=== PATIENT | male | born 1945 | race Caucasian/White ===

== ENCOUNTER 2017-02-11 14:13 | Inpatient (IN) | payer MEDICARE, MEDICAID ==
--- NOTE | 2017-02-11 14:35 | ED Physician Chart ---
Chief Complaint/HPI - Patient Information Date Seen:: 02/11/17 Time Seen:: 14:24 Chief Complaint:: PSYCHOSIS History of Present Illness:: THIS IS A 71 YO MALE SENT FROM A INTERMEDIATE FOR A PSYCH EVALUATION BECAUSE OF HIS RECENT BEHAVIOR. HE IS ALSO ANDREZ UNCOOPERATIVE AND NOT COMMUNICATING WITHE THE STAFF. HE ALSO HAS DIABETES MELLITUS,COPD, SEIZURES AND PSYCHOSIS. Allergies:: Allergies Allergy/AdvReac Type Severity Reaction Status Date / Time No Known Allergies Allergy Verified 02/11/17 14:21 Vitals:: Vital Signs - 8 hr 02/11/17 14:22 Temp 98.2 F HR 66 RR 17 BP 95/64 O2 Sat % 98 Historian:: EMS, Medical Records Review:: Nurse's Note Reviewed, Transfer documents Reviewed Review of Systems - Review of Systems General/Constitutional: No fever, No chills, No weight loss, No weakness, No diaphoresis, No edema, No loss of appetite Skin: No skin lesions, No rash, No bruising Head: No headache, No light-headedness Eyes: No loss of vision, No pain, No diplopia ENT: No earache, No nasal drainage, No sore throat, No tinnitus Neck: No neck pain, No swelling, No thyromegaly, No stiffness, No mass noted Cardio Vascular: No chest pain, No palpitations, No PND, No orthopnea, No edema Pulmonary: No SOB, No cough, No sputum, No wheezing GI: No nausea, No vomiting, No diarrhea, No pain, No melena, No hematochezia, No constipation, No hematemesis G/U: No dysuria, No frequency, No hematuria Musculoskeletal: No bone or joint pain, No back pain, No muscle pain Endocrine: No polyuria, No polydipsia Psychiatric: Prior psych history, No prior psych history, No depression, No anxiety, No suicidal ideation Hematopoietic: No bruising, No lymphadenopathy Allergic/Immuno: No urticaria, No angioedema Neurological: No syncope, No focal symptoms, No weakness, No paresthesia, No headache, Seizure, No dizziness, No confusion, No vertigo Past Medical History - Past Medical History Obtainable: Yes Past Medical History: HTN, DM, Asthma/COPD, Seizures, Dementia Family History: None Social History: Non Smoker, No Alcohol, No Drug Use, Care Facility Surgical History: None Psychiatricy History: Dementia Physical Exam - Physical Examination General/Constitutional: Awake, Well-developed, well-nourished, Alert, No distress, GCS 15, Non-toxic appearing, Ambulatory Other Gen/Cons comments:: NOT COOPERATING AND NOT COMMUNICATING. Head: Atraumatic Eyes: Lids, conjuctiva normal, PERRL, EOMI Skin: Nl inspection, No rash, No skin lesions, No ecchymosis, Well hydrated, No lymphadenopathy ENMT: External ears, nose nl, Nasal exam nl, Lips, teeth, gums nl Neck: Nontender, Full ROM w/o pain, No JVD, No nuchal rigidity, No bruit, No mass, No stridor Respiratory: Nl effort/Exclusion, Clear to Auscultation, No Wheeze/Rhonchi/Rales Cardio Vascular: RRR, No murmur, gallop, rubs, NL S1 S2 GI: No tenderness/rebounding/guarding, No organomegaly, No hernia, Normal BS's, Nondistended, No mass/bruits, No McBurney tenderness : No CVA tenderness Extremities: No tenderness or effusion, Full ROM, normal strength in all extremities, No edema, Normal digits & nails Neuro/Psych: Alert/oriented, DTR's symmetric, Normal sensory exam, Normal motor strength, Judgement/insight normal, Mood normal, Normal gait, No focal deficits Misc: normal gait, Normal back, No paraspinal tenderness Labs/Radiology/EKG Results - Lab Results Results: Abnormal Lab Results 02/11/17 02/11/17 02/11/17 14:31 14:31 14:31 WBC 8.4 RBC 4.06 Hgb 12.0 L Hct 36.1 L MCV 88.7 MCH 29.5 MCHC Differential 33.3 RDW 14.1 Plt Count 183 MPV 8.2 Neutrophils % 81.1 H Lymphocytes % 12.8 L Monocytes % 3.8 Eosinophils % 1.3 Basophils % 1.0 Sodium 137 Potassium 3.8 Chloride 105 Carbon Dioxide 30.5 Anion Gap 5.3 L BUN 21 Creatinine 0.6 L Est GFR ( Amer) > 60.0 Est GFR (Non-Af Amer) > 60.0 BUN/Creatinine Ratio 35.0 Glucose 122 H POC Glucose Calcium 9.3 Total Bilirubin 0.2 L AST 15 ALT 15 Alkaline Phosphatase 104 Troponin I Total Protein 6.9 Albumin 3.7 L Globulin 3.2 Albumin/Globulin Ratio 1.2 Triglycerides 119 Cholesterol 108 LDL Cholesterol Direct 47 L HDL Cholesterol 45 TSH 0.70 Valproic Acid 02/11/17 02/11/17 02/11/17 14:31 14:31 14:44 WBC RBC Hgb Hct MCV MCH MCHC Differential RDW Plt Count MPV Neutrophils % Lymphocytes % Monocytes % Eosinophils % Basophils % Sodium Potassium Chloride Carbon Dioxide Anion Gap BUN Creatinine Est GFR ( Amer) Est GFR (Non-Af Amer) BUN/Creatinine Ratio Glucose POC Glucose 127 H Calcium Total Bilirubin AST ALT Alkaline Phosphatase Troponin I 0.01 Total Protein Albumin Globulin Albumin/Globulin Ratio Triglycerides Cholesterol LDL Cholesterol Direct HDL Cholesterol TSH Valproic Acid < 10.0 L - EKG Interpretations EKG Time:: 14:22 Rate & Rhythm: RATE= 69, SINUS [place]: LEFT Assessment - Assessment General Assessment: psychosis ED Septic Shock - . Is Septic Shock (SBP<90, OR Lactate>4 mmol\L) present?: No - <6hrs of presentation: Vital Signs: Vital Signs - 8 hr 02/11/17 14:22 Temp 98.2 F HR 66 RR 17 BP 95/64 O2 Sat % 98 Reassessment (Disposition) - Reassessment Reassessment Condition:: Improved - Diagnosis Diagnosis:: PSYCHOSIS SEIZURE DISORDER - Patient Disposition Discharge/Transfer:: Acute Care w/in this hosp Admitting Medical Physician:: Luis Robertson Admitting Psych Physician:: Marc Martin Condition at Disposition:: Improved ED Discharge Plan - Patient Disposition Admit/Discharge/Transfer: Acute Care w/in this hosp Condition at Disposition: Improved Instructions: Psychosis
[2017-02-11 14:39] LABS: % EOSINOPHILS 1.3 % (0.0-5.0); % LYMPHOCYTES 12.8 % (20.0-50.0); % MONOCYTES 3.8 % (2.0-10.0); % NEUTROPHILS 81.1 % (40.0-80.0); HEMATOCRIT 36.1 % (39.0-49.0); MEAN CELL VOLUME 88.7 fl (80-99); MEAN CORPUSCULAR HEMOGLOBIN 29.5 pg (27.0-31.0); MEAN CORPUSCULAR HGB CONC 33.3 pg (28.0-36.0); MEAN PLATELET VOLUME 8.2 fl; NEUTROPHILE ABSOLUTE 6.8 Th/cmm (1.8-8.0); PLATELET COUNT 183 Th/cmm (150-400); RED BLOOD COUNT 4.06 Mil/cmm (3.80-5.80); RED CELL DISTRIBUTION WIDTH 14.1 % (11.5-20.0); WHITE BLOOD COUNT 8.4 Th/cmm (4.8-10.8)
[2017-02-11 14:54] LABS: ALB/GLOB RATIO 1.2 (1.0-1.8); ALKALINE PHOSPHATASE 104 U/L (34-104); ANION GAP 5.3 (7.0-16.0); BILIRUBIN,TOTAL 0.2 mg/dL (0.3-1.0); BUN - UREA NITROGEN 21 mg/dL (7-25); CALCIUM SERUM 9.3 mg/dL (8.6-10.3); CARBON DIOXIDE 30.5 mEq/L (21.0-31.0); CHLORIDE 105 mEq/L (98-107); CHOLESTEROL 108 mg/dL (<200); CREATININE - SERUM 0.6 mg/dL (0.7-1.3); GLUCOSE 122 mg/dL (70-105); POTASSIUM SERUM 3.8 mEq/L (3.5-5.1); SGOT 15 U/L (13-39); SGPT/ALT 15 U/L (7-52); SODIUM SERUM 137 mEq/L (136-145); TRIGLYCERIDES 119 mg/dL (<150)
[2017-02-11 16:26] LABS: URINE BILIRUBIN NEGATIVE (NEGATIVE); URINE BLOOD SMALL (NEGATIVE); URINE GLUCOSE (UA) NEGATIVE (NEGATIVE); URINE KETONE NEGATIVE (NEGATIVE); URINE PROTEIN 30 mg/dL (NEGATIVE); URINE UROBILINOGEN 0.2 E.U./dL (0.2 - 1.0)
[2017-02-11 16:54] LABS: URINE COLOR YELLOW
[2017-02-11 16:57] LABS: URINE BACTERIA MANY /hpf (NONE SEEN); URINE EPITHELIAL CELLS NONE SEEN /lpf (FEW); URINE WBC 25-50 /hpf (0-5)
[2017-02-11 17:47] LABS: AMPHETAMINE URINE NEGATIVE (NEGATIVE); BARBITURATES URINE NEGATIVE (NEGATIVE); METHADONE URINE NEGATIVE (NEGATIVE)
[2017-02-11 18:03] VITALS: BP 132/76
[2017-02-11] MEDS ORDERED: Magnesium Hydroxide (MOM) 30 mL UDC PO PRN (18:08)
[2017-02-11] MEDS ORDERED: Maalox 30 mL Cup PO PRN (18:08)
[2017-02-12] MEDS: Pantoprazole 40 mg EC Tab PO SCH (06:53)
[2017-02-12] MEDS: INSULIN ASPART SLIDING SCALE 100 UNITS/ML UNIT SUBQ SCH ×3 (06:53→21:09)
[2017-02-12] MEDS ORDERED: ARMODAFINIL 200 MG PO SCH (09:00)
[2017-02-12] MEDS: POLYETHYLENE GLYCOL 3350 17 GM PACK PO SCH (11:08)
[2017-02-12] MEDS: Nicotine 14 mg/24 hr Tdm TD SCH (11:12)
--- NOTE | 2017-02-12 14:30 | History & Physical ---
ADMIT DATE: 02/11/2017 CHIEF COMPLAINT: Increasing agitation. HISTORY OF PRESENT ILLNESS: This is a 71-year-old male with history of COPD, diabetes, hypertension, GERD, history of stroke, schizoaffective disorder, who was admitted from nursing facility secondary to above complaints. The patient is confused, unable to provide a meaningful history and review of systems: The patient was cleared through the ER. PAST MEDICAL HISTORY: As mentioned in history present illness. PAST SURGICAL HISTORY: Unable to obtain from the patient. ALLERGIES: No known drug allergies. MEDICATIONS: Tylenol, Depakote, Colace, insulin sliding scale, Ativan, milk of magnesia, Glucophage, Maalox with Ambien. FAMILY HISTORY: Noncontributory. SOCIAL HISTORY: The patient is a long term patient requiring 24-hour total care. REVIEW OF SYSTEMS: This is limited secondary to the patient's current mental state. We will try to obtain more detailed review of systems at a later date by talking to family members. ___ [phone]. We will also try to get information from nursing staff at [facility] [phone]. PHYSICAL EXAMINATION: VITAL SIGNS: Blood pressure 116/69, respirations 19, pulse was 76, temperature is 97.7. GENERAL: Elderly male, who appears stated age. NECK: Supple. No mass. HEENT: Bilateral temporal wasting. LUNGS: Equal breath sounds, few rhonchi. HEART: Regular rate and rhythm with systolic ejection murmur. ABDOMEN: Soft, nontender. EXTREMITIES: Positive excoriation, upper extremity. LABORATORY DATA: WBC 8.4, hemoglobin 12, platelets 183. Sodium 137, potassium 3.8, BUN 21, creatinine 0.6. Blood sugar 127. UA 50 wbc's, positive for benzo. ASSESSMENT AND PLAN: COPD, diabetes, CAD, hypertension, gait instability, GERD, stroke, CVA, schizoaffective disorder, anemia, low albumin. We will continue the patient on IV antibiotic and continue on oxygen and bronchodilator treatment. Continue ADA diet and insulin sliding scale. Continue with current care. We will place the patient on fall precaution. We will continue to monitor the patient closely. JOB# [id number]
[2017-02-13] MEDS: Pantoprazole 40 mg EC Tab PO SCH (06:46)
[2017-02-13] MEDS: INSULIN ASPART SLIDING SCALE 100 UNITS/ML UNIT SUBQ SCH ×4 (07:00→20:42)
[2017-02-13] MEDS: Nicotine 14 mg/24 hr Tdm TD SCH (09:26)
[2017-02-13] MEDS: POLYETHYLENE GLYCOL 3350 17 GM PACK PO SCH (09:26)
--- NOTE | 2017-02-13 13:27 | Internal Medicine Prog Note ---
Internal Medicine Subjective - Subjective Patient seen and examined:: with staff, chart reviewed Patient is:: awake, non-verbal, non-interactive Per staff patient has:: no adverse event, poor appetite, tolerating meds Internal Medicine Objective - Results Result Diagrams: 02/11/17 14:31 02/11/17 14:31 Recent Labs: Laboratory Last Values WBC 8.4 Th/cmm (4.8-10.8) 02/11/17 14:31 RBC 4.06 Mil/cmm (3.80-5.80) 02/11/17 14:31 Hgb 12.0 gm/dL (12.6-17.4) L 02/11/17 14:31 Hct 36.1 % (39.0-49.0) L 02/11/17 14:31 MCV 88.7 fl (80-99) 02/11/17 14:31 MCH 29.5 pg (27.0-31.0) 02/11/17 14:31 MCHC Differential 33.3 pg (28.0-36.0) 02/11/17 14:31 RDW 14.1 % (11.5-20.0) 02/11/17 14:31 Plt Count 183 Th/cmm (150-400) 02/11/17 14:31 MPV 8.2 fl 02/11/17 14:31 Neutrophils % 81.1 % (40.0-80.0) H 02/11/17 14:31 Lymphocytes % 12.8 % (20.0-50.0) L 02/11/17 14:31 Monocytes % 3.8 % (2.0-10.0) 02/11/17 14:31 Eosinophils % 1.3 % (0.0-5.0) 02/11/17 14:31 Basophils % 1.0 % (0.0-2.0) 02/11/17 14:31 Sodium 137 mEq/L (136-145) 02/11/17 14:31 Potassium 3.8 mEq/L (3.5-5.1) 02/11/17 14:31 Chloride 105 mEq/L (98-107) 02/11/17 14:31 Carbon Dioxide 30.5 mEq/L (21.0-31.0) 02/11/17 14:31 Anion Gap 5.3 (7.0-16.0) L 02/11/17 14:31 BUN 21 mg/dL (7-25) 02/11/17 14:31 Creatinine 0.6 mg/dL (0.7-1.3) L 02/11/17 14:31 Est GFR ( Amer) > 60.0 ml/min (>90) 02/11/17 14:31 Est GFR (Non-Af Amer) > 60.0 ml/min 02/11/17 14:31 BUN/Creatinine Ratio 35.0 02/11/17 14:31 Glucose 122 mg/dL (70-105) H 02/11/17 14:31 POC Glucose 100 MG/DL (70 - 105) 02/13/17 06:09 Calcium 9.3 mg/dL (8.6-10.3) 02/11/17 14:31 Total Bilirubin 0.2 mg/dL (0.3-1.0) L 02/11/17 14:31 AST 15 U/L (13-39) 02/11/17 14:31 ALT 15 U/L (7-52) 02/11/17 14:31 Alkaline Phosphatase 104 U/L (34-104) 02/11/17 14:31 Troponin I 0.01 ng/mL (0.01-0.05) 02/11/17 14:31 Total Protein 6.9 gm/dL (6.0-8.3) 02/11/17 14:31 Albumin 3.7 gm/dL (4.2-5.5) L 02/11/17 14:31 Globulin 3.2 gm/dL 02/11/17 14:31 Albumin/Globulin Ratio 1.2 (1.0-1.8) 02/11/17 14:31 Triglycerides 119 mg/dL (<150) 02/11/17 14:31 Cholesterol 108 mg/dL (<200) 02/11/17 14:31 LDL Cholesterol Direct 47 mg/dL (75-193) L 02/11/17 14:31 HDL Cholesterol 45 mg/dL (23-92) 02/11/17 14:31 TSH 0.70 uIU/ml (0.34-5.60) 02/11/17 14:31 Urine Source CLEAN C 02/11/17 16:10 Urine Color YELLOW 02/11/17 16:10 Urine Clarity CLOUDY (CLEAR) 02/11/17 16:10 Urine pH 8.0 (4.6 - 8.0) 02/11/17 16:10 Ur Specific [place] 1.020 (1.005-1.030) 02/11/17 16:10 Urine Protein 30 mg/dL (NEGATIVE) H 02/11/17 16:10 Urine Glucose (UA) NEGATIVE mg/dL (NEGATIVE) 02/11/17 16:10 Urine Ketones NEGATIVE mg/dL (NEGATIVE) 02/11/17 16:10 Urine Blood SMALL (NEGATIVE) H 02/11/17 16:10 Urine Nitrate POSITIVE (NEGATIVE) H 02/11/17 16:10 Urine Bilirubin NEGATIVE (NEGATIVE) 02/11/17 16:10 Urine Urobilinogen 0.2 E.U./dL (0.2 - 1.0) 02/11/17 16:10 Ur Leukocyte Esterase LARGE (NEGATIVE) H 02/11/17 16:10 Urine RBC 2-5 /hpf (0-5) H 02/11/17 16:10 Urine WBC 25-50 /hpf (0-5) H 02/11/17 16:10 Ur Epithelial Cells NONE SEEN /lpf (FEW) 02/11/17 16:10 Urine Bacteria MANY /hpf (NONE SEEN) 02/11/17 16:10 Urine Opiates Screen NEGATIVE (NEGATIVE) 02/11/17 16:10 Urine Methadone Screen NEGATIVE (NEGATIVE) 02/11/17 16:10 Ur Barbiturates Screen NEGATIVE (NEGATIVE) 02/11/17 16:10 Valproic Acid < 10.0 ug/mL (50.0-100.0) L 02/11/17 14:31 Ur Tricyclics Screen NEGATIVE (NEGATIVE) 02/11/17 16:10 Ur Phencyclidine Scrn NEGATIVE (NEGATIVE) 02/11/17 16:10 Amphetamines Screen NEGATIVE (NEGATIVE) 02/11/17 16:10 U Methamphetamines Scrn NEGATIVE (NEGATIVE) 02/11/17 16:10 U Benzodiazepines Scrn POSITIVE (NEGATIVE) H 02/11/17 16:10 U Cocaine Metab Screen NEGATIVE (NEGATIVE) 02/11/17 16:10 U Cannabinoids Screen NEGATIVE (NEGATIVE) 02/11/17 16:10 RPR NONREACTIVE (NONREACTIVE) 02/11/17 14:31 - Physical Exam Vitals and I&O: Vital Signs Temp 98 F 02/13/17 06:56 Pulse 63 02/13/17 06:56 Resp 19 02/13/17 06:56 BP 99/62 02/13/17 06:56 Pulse Ox 91 02/13/17 06:56 Intake & Output 02/12/17 02/13/17 02/13/17 18:59 06:59 18:59 Intake Total 800 120 Balance 800 120 Weight (lbs) 65.771 kg Intake: Oral 800 120 Other: # Voids 4 3 # Bowel Movements 0 0 Stool Characteristics Formed Formed Active Medications: Current Medications Acetaminophen (Tylenol) 650 mg PO Q6HR PRN PRN Reason: PAIN OR TEMP >101 Stop: 04/12/17 18:04 Al Hydrox/Mg Hydrox/Simethicone (Maalox) 30 ml PO Q4HR PRN PRN Reason: GI DISTRESS Stop: 04/12/17 18:07 Ciprofloxacin (Cipro) 500 mg PO BID [facility] Stop: 02/17/17 16:59 Last Admin: 02/13/17 09:25 Dose: Not Given Cyanocobalamin (Vitamin B12) 500 mcg PO DAILY [facility] Stop: 04/13/17 08:59 Last Admin: 02/13/17 09:25 Dose: Not Given Divalproex Sodium (Depakote Dr) 125 mg PO Q12H ERIC PRN Reason: Protocol Stop: 04/14/17 20:59 Docusate Sodium (Colace) 100 mg PO BID [facility] Stop: 04/13/17 08:59 Last Admin: 02/13/17 09:25 Dose: Not Given Folic Acid (Folate) 1 mg PO DAILY [facility] Stop: 04/13/17 08:59 Last Admin: 02/13/17 09:25 Dose: Not Given Insulin Aspart (Novolog Insulin Sliding Scale) 0 units SUBQ ACHS ERIC PRN Reason: Protocol Stop: 04/13/17 07:29 Last Admin: 02/13/17 11:28 Dose: Not Given Lorazepam (Ativan) 0.5 mg PO Q4HR PRN; Protocol PRN Reason: Anxiety Stop: 03/13/17 18:07 Magnesium Hydroxide (Milk Of Magnesia) 30 ml PO HS PRN PRN Reason: Constipation Metformin HCl (Glucophage) 500 mg PO BID [facility] Stop: 04/13/17 08:59 Last Admin: 02/13/17 09:26 Dose: Not Given Miscellaneous (Armodafinil [Nuvigil]) 200 mg PO DAILY [facility] Stop: 04/13/17 08:59 Nicotine (Nicotine Transdermal System) 14 mg TD DAILY [facility] Stop: 04/13/17 08:59 Last Admin: 02/13/17 09:26 Dose: Not Given Pantoprazole Sodium (Protonix) 40 mg PO QDAC [facility] Stop: 04/13/17 07:29 Last Admin: 02/13/17 06:46 Dose: Not Given Polyethylene Glycol (Miralax) 17 gm PO DAILY [facility] Stop: 04/13/17 08:59 Last Admin: 02/13/17 09:26 Dose: Not Given Quetiapine Fumarate (Seroquel) 12.5 mg PO HS ERIC PRN Reason: Protocol Stop: 04/14/17 20:59 Thiamine HCl (Vitamin B1) 100 mg PO DAILY [facility] Stop: 04/13/17 08:59 Last Admin: 02/13/17 09:26 Dose: Not Given Zolpidem Tartrate (Ambien) 5 mg PO HS PRN PRN Reason: Insomnia Stop: 04/12/17 18:07 General: demented HEENT: NC/AT, PERRLA Neck: Supple, No JVD Lungs: congested Cardiovascular: RRR, Normal S1, Normal S2, with murmur Abdomen: soft, thin, globular Extremities: excoriation, contracture, deformity Neurological: no change, lethargic Internal Medicine Assmt/Plan - Assessment Assessment: COPD, diabetes, CAD, hypertension, gait instability, GERD, stroke, CVA, schizoaffective disorder, anemia, low albumin.uti - Plan Plan: We will continue the patient on po antibiotic and continue on oxygen and bronchodilator treatment. Continue ADA diet and insulin sliding scale. Continue with current care. We will place the patient on fall precaution. We will continue to monitor the patient closely.
--- NOTE | 2017-02-13 19:37 | Psychosocial Evaluation ---
DATE OF SERVICE: 02/12/2017 IDENTIFYING DATA: The patient is a 71-year-old patient of [facility]. Information obtained by directly interviewing the patient as well as reviewing the admission papers and they are reliable. JUSTIFICATION FOR HOSPITALIZATION: The patient is admitted here on a voluntary basis in view of his psychosis. CHIEF COMPLAINT: "I do not know." HISTORY OF PRESENT ILLNESS: This is the first psychiatric hospitalization to [place] for this patient who has multiple medical problems such as diabetes mellitus, essential hypertension, muscle weakness, gastroesophageal reflux disease and history of CVA. The patient is reported to have been getting out of control and has been getting easily irritable and angry and patient has been not able to contract for safety. The patient could not be contained at a lower level of care and hence the patient has been reported over here for stabilization. Chart is reviewed. The patient is interviewed. During the interview, the patient is noted to be responding to internal stimuli and is not making much sense. The patient is screaming and yelling at one time. The patient has been on Seroquel 50 mg twice a day, Depakote 125 mg twice a day. Even with that medication, the patient has not been able to contract for safety. PAST PSYCHIATRIC HISTORY: Details are not known. MEDICAL HISTORY: Physical examination requested and done by Dr. Robertson. SUBSTANCE ABUSE HISTORY: None. PHYSICAL OR SEXUAL ABUSE HISTORY: None. LEGAL PROBLEMS: None at this time. STRENGTH AND ASSETS: The patient seems to be motivated. MENTAL STATUS EXAMINATION: The patient is a 71-year-old, looking older than his stated age, superficially cooperative. The patient is very paranoid and is responding to internal stimuli. The patient is getting easily irritable and cursing the other patient's out. The patient has no insight into his illness. Impulse control seems to be extremely poor. The patient is alert and awake. Attention span and concentration are noted to be poor at this time. Short and shelter are noted to be impaired. DIAGNOSTIC IMPRESSION: AXIS I: 1A. Psychosis, not otherwise specified. 1B. History of bipolar disorder mixed with psychotic symptoms. AXIS II: None. AXIS III: As per Dr. Robertson. IMMEDIATE TREATMENT PLAN: The patient is going to be observed on inpatient unit, provided with supportive psychotherapy. The patient is going to be continued on the Seroquel and Depakote. ESTIMATED LENGTH OF STAY: 3-5 days. DISCHARGE CRITERIA: When he is no longer a threat to self or others and be able to cope up with the stress. The patient is going to be closely monitored for his aggressive behavior. [facility]# [id number]
--- NOTE | 2017-02-14 00:45 | Progress Notes ---
DATE: 02/13/2017 SUBJECTIVE: Staff was spoken to. The patient is interviewed. Mood is noted to be irritable. Affect is constricted. The patient is still responding to internal stimuli. Coping skills are noted to be very poor. Sleep and appetite are also noted to be very poor. The patient has been actively responding to internal stimuli and the patient is currently on valproic acid 125 mg twice a day for the impulsivity and he is also receiving the zolpidem and in view of his psychosis, I have decided to start the patient on a low dose of the Seroquel and closely monitor the patient for any aggressive behavior. The patient is not ready to be discharged to a lower level of care in view of his psychosis. JOB# [id number]
[2017-02-14] MEDS: INSULIN ASPART SLIDING SCALE 100 UNITS/ML UNIT SUBQ SCH ×4 (06:32→20:08)
[2017-02-14] MEDS: Pantoprazole 40 mg EC Tab PO SCH (06:33)
[2017-02-14] MEDS: POLYETHYLENE GLYCOL 3350 17 GM PACK PO SCH (10:00)
[2017-02-14] MEDS: Nicotine 14 mg/24 hr Tdm TD SCH (10:00)
--- NOTE | 2017-02-14 12:35 | Internal Medicine Prog Note ---
Internal Medicine Subjective - Subjective Patient seen and examined:: with staff, chart reviewed Patient is:: awake, non-verbal, non-interactive Per staff patient has:: no adverse event, poor appetite, tolerating meds Internal Medicine Objective - Results Result Diagrams: 02/11/17 14:31 02/11/17 14:31 Recent Labs: Laboratory Last Values WBC 8.4 Th/cmm (4.8-10.8) 02/11/17 14:31 RBC 4.06 Mil/cmm (3.80-5.80) 02/11/17 14:31 Hgb 12.0 gm/dL (12.6-17.4) L 02/11/17 14:31 Hct 36.1 % (39.0-49.0) L 02/11/17 14:31 MCV 88.7 fl (80-99) 02/11/17 14:31 MCH 29.5 pg (27.0-31.0) 02/11/17 14:31 MCHC Differential 33.3 pg (28.0-36.0) 02/11/17 14:31 RDW 14.1 % (11.5-20.0) 02/11/17 14:31 Plt Count 183 Th/cmm (150-400) 02/11/17 14:31 MPV 8.2 fl 02/11/17 14:31 Neutrophils % 81.1 % (40.0-80.0) H 02/11/17 14:31 Lymphocytes % 12.8 % (20.0-50.0) L 02/11/17 14:31 Monocytes % 3.8 % (2.0-10.0) 02/11/17 14:31 Eosinophils % 1.3 % (0.0-5.0) 02/11/17 14:31 Basophils % 1.0 % (0.0-2.0) 02/11/17 14:31 Sodium 137 mEq/L (136-145) 02/11/17 14:31 Potassium 3.8 mEq/L (3.5-5.1) 02/11/17 14:31 Chloride 105 mEq/L (98-107) 02/11/17 14:31 Carbon Dioxide 30.5 mEq/L (21.0-31.0) 02/11/17 14:31 Anion Gap 5.3 (7.0-16.0) L 02/11/17 14:31 BUN 21 mg/dL (7-25) 02/11/17 14:31 Creatinine 0.6 mg/dL (0.7-1.3) L 02/11/17 14:31 Est GFR ( Amer) > 60.0 ml/min (>90) 02/11/17 14:31 Est GFR (Non-Af Amer) > 60.0 ml/min 02/11/17 14:31 BUN/Creatinine Ratio 35.0 02/11/17 14:31 Glucose 122 mg/dL (70-105) H 02/11/17 14:31 POC Glucose 100 MG/DL (70 - 105) 02/14/17 06:09 Calcium 9.3 mg/dL (8.6-10.3) 02/11/17 14:31 Total Bilirubin 0.2 mg/dL (0.3-1.0) L 02/11/17 14:31 AST 15 U/L (13-39) 02/11/17 14:31 ALT 15 U/L (7-52) 02/11/17 14:31 Alkaline Phosphatase 104 U/L (34-104) 02/11/17 14:31 Troponin I 0.01 ng/mL (0.01-0.05) 02/11/17 14:31 Total Protein 6.9 gm/dL (6.0-8.3) 02/11/17 14:31 Albumin 3.7 gm/dL (4.2-5.5) L 02/11/17 14:31 Globulin 3.2 gm/dL 02/11/17 14:31 Albumin/Globulin Ratio 1.2 (1.0-1.8) 02/11/17 14:31 Triglycerides 119 mg/dL (<150) 02/11/17 14:31 Cholesterol 108 mg/dL (<200) 02/11/17 14:31 LDL Cholesterol Direct 47 mg/dL (75-193) L 02/11/17 14:31 HDL Cholesterol 45 mg/dL (23-92) 02/11/17 14:31 TSH 0.70 uIU/ml (0.34-5.60) 02/11/17 14:31 Urine Source CLEAN C 02/11/17 16:10 Urine Color YELLOW 02/11/17 16:10 Urine Clarity CLOUDY (CLEAR) 02/11/17 16:10 Urine pH 8.0 (4.6 - 8.0) 02/11/17 16:10 Ur Specific [place] 1.020 (1.005-1.030) 02/11/17 16:10 Urine Protein 30 mg/dL (NEGATIVE) H 02/11/17 16:10 Urine Glucose (UA) NEGATIVE mg/dL (NEGATIVE) 02/11/17 16:10 Urine Ketones NEGATIVE mg/dL (NEGATIVE) 02/11/17 16:10 Urine Blood SMALL (NEGATIVE) H 02/11/17 16:10 Urine Nitrate POSITIVE (NEGATIVE) H 02/11/17 16:10 Urine Bilirubin NEGATIVE (NEGATIVE) 02/11/17 16:10 Urine Urobilinogen 0.2 E.U./dL (0.2 - 1.0) 02/11/17 16:10 Ur Leukocyte Esterase LARGE (NEGATIVE) H 02/11/17 16:10 Urine RBC 2-5 /hpf (0-5) H 02/11/17 16:10 Urine WBC 25-50 /hpf (0-5) H 02/11/17 16:10 Ur Epithelial Cells NONE SEEN /lpf (FEW) 02/11/17 16:10 Urine Bacteria MANY /hpf (NONE SEEN) 02/11/17 16:10 Urine Opiates Screen NEGATIVE (NEGATIVE) 02/11/17 16:10 Urine Methadone Screen NEGATIVE (NEGATIVE) 02/11/17 16:10 Ur Barbiturates Screen NEGATIVE (NEGATIVE) 02/11/17 16:10 Valproic Acid < 10.0 ug/mL (50.0-100.0) L 02/11/17 14:31 Ur Tricyclics Screen NEGATIVE (NEGATIVE) 02/11/17 16:10 Ur Phencyclidine Scrn NEGATIVE (NEGATIVE) 02/11/17 16:10 Amphetamines Screen NEGATIVE (NEGATIVE) 02/11/17 16:10 U Methamphetamines Scrn NEGATIVE (NEGATIVE) 02/11/17 16:10 U Benzodiazepines Scrn POSITIVE (NEGATIVE) H 02/11/17 16:10 U Cocaine Metab Screen NEGATIVE (NEGATIVE) 02/11/17 16:10 U Cannabinoids Screen NEGATIVE (NEGATIVE) 02/11/17 16:10 RPR NONREACTIVE (NONREACTIVE) 02/11/17 14:31 - Physical Exam Vitals and I&O: Vital Signs Temp 97.8 F 02/14/17 06:39 Pulse 78 02/14/17 06:39 Resp 18 02/14/17 06:39 BP 98/52 02/14/17 06:39 Pulse Ox 97 02/14/17 06:39 Intake & Output 02/13/17 02/14/17 02/14/17 18:59 06:59 18:59 Intake Total 800 240 Balance 800 240 Weight (lbs) 66.224 kg Intake: Oral 800 240 Other: # Voids 3 3 # Bowel Movements 0 0 Active Medications: Current Medications Acetaminophen (Tylenol) 650 mg PO Q6HR PRN PRN Reason: PAIN OR TEMP >101 Stop: 04/12/17 18:04 Al Hydrox/Mg Hydrox/Simethicone (Maalox) 30 ml PO Q4HR PRN PRN Reason: GI DISTRESS Stop: 04/12/17 18:07 Ciprofloxacin (Cipro) 500 mg PO BID [facility] Stop: 02/17/17 16:59 Last Admin: 02/14/17 10:00 Dose: Not Given Cyanocobalamin (Vitamin B12) 500 mcg PO DAILY [facility] Stop: 04/15/17 08:59 Last Admin: 02/14/17 10:00 Dose: Not Given Divalproex Sodium (Depakote Dr) 125 mg PO Q12H ERIC PRN Reason: Protocol Stop: 04/14/17 20:59 Last Admin: 02/14/17 10:00 Dose: Not Given Docusate Sodium (Colace) 100 mg PO BID [facility] Stop: 04/13/17 08:59 Last Admin: 02/14/17 10:00 Dose: Not Given Folic Acid (Folate) 1 mg PO DAILY [facility] Stop: 04/13/17 08:59 Last Admin: 02/14/17 10:00 Dose: Not Given Insulin Aspart (Novolog Insulin Sliding Scale) 0 units SUBQ ACHS ERIC PRN Reason: Protocol Stop: 04/13/17 07:29 Last Admin: 02/14/17 11:29 Dose: Not Given Lorazepam (Ativan) 0.5 mg PO Q4HR PRN; Protocol PRN Reason: Anxiety Stop: 03/13/17 18:07 Magnesium Hydroxide (Milk Of Magnesia) 30 ml PO HS PRN PRN Reason: Constipation Metformin HCl (Glucophage) 500 mg PO BID [facility] Stop: 04/13/17 08:59 Last Admin: 02/14/17 10:00 Dose: Not Given Miscellaneous (Armodafinil [Nuvigil]) 200 mg PO DAILY [facility] Stop: 04/13/17 08:59 Nicotine (Nicotine Transdermal System) 14 mg TD DAILY [facility] Stop: 04/13/17 08:59 Last Admin: 02/14/17 10:00 Dose: Not Given Pantoprazole Sodium (Protonix) 40 mg PO QDAC [facility] Stop: 04/13/17 07:29 Last Admin: 02/14/17 06:33 Dose: Not Given Polyethylene Glycol (Miralax) 17 gm PO DAILY [facility] Stop: 04/13/17 08:59 Last Admin: 02/14/17 10:00 Dose: Not Given Quetiapine Fumarate (Seroquel) 25 mg PO HS [facility] Stop: 04/15/17 20:59 Thiamine HCl (Vitamin B1) 100 mg PO DAILY [facility] Stop: 04/13/17 08:59 Last Admin: 02/14/17 10:00 Dose: Not Given Zolpidem Tartrate (Ambien) 5 mg PO HS PRN PRN Reason: Insomnia Stop: 04/12/17 18:07 General: demented HEENT: NC/AT, PERRLA Neck: Supple, No JVD Lungs: congested Cardiovascular: RRR, Normal S1, Normal S2, with murmur Abdomen: soft, thin, globular Extremities: excoriation, contracture, deformity Neurological: no change, lethargic Internal Medicine Assmt/Plan - Assessment Assessment: COPD, diabetes, CAD, hypertension, gait instability, GERD, stroke, CVA, schizoaffective disorder, anemia, low albumin.uti - Plan Plan: We will continue the patient on po antibiotic and continue on oxygen and bronchodilator treatment. Continue ADA diet and insulin sliding scale. Continue with current care. We will place the patient on fall precaution. We will continue to monitor the patient closely.
--- NOTE | 2017-02-15 02:12 | Progress Notes ---
DATE: 02/14/2017 PSYCHIATRIC PROGRESS NOTE TIME PATIENT SEEN: SUBJECTIVE: Staff was spoken to. The patient is interviewed. Mood is noted to be irritable. Affect is constricted. Insight and judgment are very much impaired. The patient is reluctant to take any medications. Coping skills are noted to be extremely poor. Sleep and appetite are also noted to be very poor. ASSESSMENT: The patient is still psychotic and impulsive actively responding to internal stimuli. The patient is not ready to be discharged to a lower level of care. PLAN: To continue the patient with the supportive therapy and also raise the dose on the Seroquel to 55 mg and follow up. JOB# [id number]
[2017-02-15] MEDS: Pantoprazole 40 mg EC Tab PO SCH (06:30)
[2017-02-15] MEDS: INSULIN ASPART SLIDING SCALE 100 UNITS/ML UNIT SUBQ SCH ×4 (06:30→20:19)
[2017-02-15] MEDS: Nicotine 14 mg/24 hr Tdm TD SCH (09:31)
[2017-02-15] MEDS: POLYETHYLENE GLYCOL 3350 17 GM PACK PO SCH (09:31)
--- NOTE | 2017-02-15 11:24 | Internal Medicine Prog Note ---
Internal Medicine Subjective - Subjective Patient seen and examined:: with staff, chart reviewed Patient is:: awake, non-verbal, non-interactive Per staff patient has:: no adverse event, poor appetite, tolerating meds Internal Medicine Objective - Results Result Diagrams: 02/11/17 14:31 02/11/17 14:31 Recent Labs: Laboratory Last Values WBC 8.4 Th/cmm (4.8-10.8) 02/11/17 14:31 RBC 4.06 Mil/cmm (3.80-5.80) 02/11/17 14:31 Hgb 12.0 gm/dL (12.6-17.4) L 02/11/17 14:31 Hct 36.1 % (39.0-49.0) L 02/11/17 14:31 MCV 88.7 fl (80-99) 02/11/17 14:31 MCH 29.5 pg (27.0-31.0) 02/11/17 14:31 MCHC Differential 33.3 pg (28.0-36.0) 02/11/17 14:31 RDW 14.1 % (11.5-20.0) 02/11/17 14:31 Plt Count 183 Th/cmm (150-400) 02/11/17 14:31 MPV 8.2 fl 02/11/17 14:31 Neutrophils % 81.1 % (40.0-80.0) H 02/11/17 14:31 Lymphocytes % 12.8 % (20.0-50.0) L 02/11/17 14:31 Monocytes % 3.8 % (2.0-10.0) 02/11/17 14:31 Eosinophils % 1.3 % (0.0-5.0) 02/11/17 14:31 Basophils % 1.0 % (0.0-2.0) 02/11/17 14:31 Sodium 137 mEq/L (136-145) 02/11/17 14:31 Potassium 3.8 mEq/L (3.5-5.1) 02/11/17 14:31 Chloride 105 mEq/L (98-107) 02/11/17 14:31 Carbon Dioxide 30.5 mEq/L (21.0-31.0) 02/11/17 14:31 Anion Gap 5.3 (7.0-16.0) L 02/11/17 14:31 BUN 21 mg/dL (7-25) 02/11/17 14:31 Creatinine 0.6 mg/dL (0.7-1.3) L 02/11/17 14:31 Est GFR ( Amer) > 60.0 ml/min (>90) 02/11/17 14:31 Est GFR (Non-Af Amer) > 60.0 ml/min 02/11/17 14:31 BUN/Creatinine Ratio 35.0 02/11/17 14:31 Glucose 122 mg/dL (70-105) H 02/11/17 14:31 POC Glucose 92 MG/DL (70 - 105) 02/15/17 06:18 Calcium 9.3 mg/dL (8.6-10.3) 02/11/17 14:31 Total Bilirubin 0.2 mg/dL (0.3-1.0) L 02/11/17 14:31 AST 15 U/L (13-39) 02/11/17 14:31 ALT 15 U/L (7-52) 02/11/17 14:31 Alkaline Phosphatase 104 U/L (34-104) 02/11/17 14:31 Troponin I 0.01 ng/mL (0.01-0.05) 02/11/17 14:31 Total Protein 6.9 gm/dL (6.0-8.3) 02/11/17 14:31 Albumin 3.7 gm/dL (4.2-5.5) L 02/11/17 14:31 Globulin 3.2 gm/dL 02/11/17 14:31 Albumin/Globulin Ratio 1.2 (1.0-1.8) 02/11/17 14:31 Triglycerides 119 mg/dL (<150) 02/11/17 14:31 Cholesterol 108 mg/dL (<200) 02/11/17 14:31 LDL Cholesterol Direct 47 mg/dL (75-193) L 02/11/17 14:31 HDL Cholesterol 45 mg/dL (23-92) 02/11/17 14:31 TSH 0.70 uIU/ml (0.34-5.60) 02/11/17 14:31 Urine Source CLEAN C 02/11/17 16:10 Urine Color YELLOW 02/11/17 16:10 Urine Clarity CLOUDY (CLEAR) 02/11/17 16:10 Urine pH 8.0 (4.6 - 8.0) 02/11/17 16:10 Ur Specific [place] 1.020 (1.005-1.030) 02/11/17 16:10 Urine Protein 30 mg/dL (NEGATIVE) H 02/11/17 16:10 Urine Glucose (UA) NEGATIVE mg/dL (NEGATIVE) 02/11/17 16:10 Urine Ketones NEGATIVE mg/dL (NEGATIVE) 02/11/17 16:10 Urine Blood SMALL (NEGATIVE) H 02/11/17 16:10 Urine Nitrate POSITIVE (NEGATIVE) H 02/11/17 16:10 Urine Bilirubin NEGATIVE (NEGATIVE) 02/11/17 16:10 Urine Urobilinogen 0.2 E.U./dL (0.2 - 1.0) 02/11/17 16:10 Ur Leukocyte Esterase LARGE (NEGATIVE) H 02/11/17 16:10 Urine RBC 2-5 /hpf (0-5) H 02/11/17 16:10 Urine WBC 25-50 /hpf (0-5) H 02/11/17 16:10 Ur Epithelial Cells NONE SEEN /lpf (FEW) 02/11/17 16:10 Urine Bacteria MANY /hpf (NONE SEEN) 02/11/17 16:10 Urine Opiates Screen NEGATIVE (NEGATIVE) 02/11/17 16:10 Urine Methadone Screen NEGATIVE (NEGATIVE) 02/11/17 16:10 Ur Barbiturates Screen NEGATIVE (NEGATIVE) 02/11/17 16:10 Valproic Acid < 10.0 ug/mL (50.0-100.0) L 02/11/17 14:31 Ur Tricyclics Screen NEGATIVE (NEGATIVE) 02/11/17 16:10 Ur Phencyclidine Scrn NEGATIVE (NEGATIVE) 02/11/17 16:10 Amphetamines Screen NEGATIVE (NEGATIVE) 02/11/17 16:10 U Methamphetamines Scrn NEGATIVE (NEGATIVE) 02/11/17 16:10 U Benzodiazepines Scrn POSITIVE (NEGATIVE) H 02/11/17 16:10 U Cocaine Metab Screen NEGATIVE (NEGATIVE) 02/11/17 16:10 U Cannabinoids Screen NEGATIVE (NEGATIVE) 02/11/17 16:10 RPR NONREACTIVE (NONREACTIVE) 02/11/17 14:31 - Physical Exam Vitals and I&O: Vital Signs Temp 97.8 F 02/15/17 06:45 Pulse 74 02/15/17 06:45 Resp 20 02/15/17 06:45 BP 119/74 02/15/17 06:45 Pulse Ox 97 02/15/17 06:45 Intake & Output 02/14/17 02/15/17 02/15/17 18:59 06:59 18:59 Intake Total 1800 120 Balance 1800 120 Intake: Oral 1800 120 Other: # Voids 4 3 Active Medications: Current Medications Acetaminophen (Tylenol) 650 mg PO Q6HR PRN PRN Reason: PAIN OR TEMP >101 Stop: 04/12/17 18:04 Al Hydrox/Mg Hydrox/Simethicone (Maalox) 30 ml PO Q4HR PRN PRN Reason: GI DISTRESS Stop: 04/12/17 18:07 Ciprofloxacin (Cipro) 500 mg PO BID [facility] Stop: 02/17/17 16:59 Last Admin: 02/15/17 09:31 Dose: Not Given Cyanocobalamin (Vitamin B12) 500 mcg PO DAILY [facility] Stop: 04/15/17 08:59 Last Admin: 02/15/17 09:31 Dose: Not Given Divalproex Sodium (Depakote Dr) 125 mg PO Q12H ERIC PRN Reason: Protocol Stop: 04/14/17 20:59 Last Admin: 02/15/17 09:30 Dose: Not Given Docusate Sodium (Colace) 100 mg PO BID [facility] Stop: 04/13/17 08:59 Last Admin: 02/15/17 09:31 Dose: Not Given Folic Acid (Folate) 1 mg PO DAILY [facility] Stop: 04/13/17 08:59 Last Admin: 02/15/17 09:31 Dose: Not Given Insulin Aspart (Novolog Insulin Sliding Scale) 0 units SUBQ ACHS ERIC PRN Reason: Protocol Stop: 04/13/17 07:29 Last Admin: 02/15/17 06:30 Dose: Not Given Lorazepam (Ativan) 0.5 mg PO Q4HR PRN; Protocol PRN Reason: Anxiety Stop: 03/13/17 18:07 Magnesium Hydroxide (Milk Of Magnesia) 30 ml PO HS PRN PRN Reason: Constipation Metformin HCl (Glucophage) 500 mg PO BID [facility] Stop: 04/13/17 08:59 Last Admin: 02/15/17 09:31 Dose: Not Given Miscellaneous (Armodafinil [Nuvigil]) 200 mg PO DAILY [facility] Stop: 04/13/17 08:59 Nicotine (Nicotine Transdermal System) 14 mg TD DAILY [facility] Stop: 04/13/17 08:59 Last Admin: 02/15/17 09:31 Dose: Not Given Pantoprazole Sodium (Protonix) 40 mg PO QDAC [facility] Stop: 04/13/17 07:29 Last Admin: 02/15/17 06:30 Dose: Not Given Polyethylene Glycol (Miralax) 17 gm PO DAILY [facility] Stop: 04/13/17 08:59 Last Admin: 02/15/17 09:31 Dose: Not Given Quetiapine Fumarate (Seroquel) 25 mg PO HS [facility] Stop: 04/15/17 20:59 Last Admin: 02/14/17 20:40 Dose: 25 mg Thiamine HCl (Vitamin B1) 100 mg PO DAILY [facility] Stop: 04/13/17 08:59 Last Admin: 02/15/17 09:31 Dose: Not Given Zolpidem Tartrate (Ambien) 5 mg PO HS PRN PRN Reason: Insomnia Stop: 04/12/17 18:07 General: demented HEENT: NC/AT, PERRLA Neck: Supple, No JVD Lungs: congested Cardiovascular: RRR, Normal S1, Normal S2, with murmur Abdomen: soft, thin, globular Extremities: excoriation, contracture, deformity Neurological: no change, lethargic Internal Medicine Assmt/Plan - Assessment Assessment: COPD, diabetes, CAD, hypertension, gait instability, GERD, stroke, CVA, schizoaffective disorder, anemia, low albumin.uti - Plan Plan: We will continue the patient on po antibiotic and continue on oxygen and bronchodilator treatment. Continue ADA diet and insulin sliding scale. Continue with current care. We will place the patient on fall precaution. We will continue to monitor the patient closely.
[2017-02-16] MEDS: INSULIN ASPART SLIDING SCALE 100 UNITS/ML UNIT SUBQ SCH ×4 (06:37→21:28)
[2017-02-16] MEDS: Pantoprazole 40 mg EC Tab PO SCH (06:37)
[2017-02-16] MEDS: Nicotine 14 mg/24 hr Tdm TD SCH (09:14)
[2017-02-16] MEDS: POLYETHYLENE GLYCOL 3350 17 GM PACK PO SCH (09:14)
--- NOTE | 2017-02-16 10:49 | Progress Notes ---
DATE: 02/15/2017 PSYCHIATRIC PROGRESS NOTE SUBJECTIVE: Staff was spoken to. The patient is interviewed. Mood is noted to be irritable. Affect is constricted. The patient is getting easily agitated. The patient is responding to internal stimuli. The patient has been placed on the Seroquel 25 mg at bedtime. The patient's compliance with the medication is noted to be poor. The patient is also on the valproic acid 125 mg twice a day. ASSESSMENT: The patient is still impulsive and paranoid. PLAN: To continue the patient with the current medications and follow the patient with supportive therapy [facility]# [id number]
--- NOTE | 2017-02-16 11:23 | Internal Medicine Prog Note ---
Internal Medicine Subjective - Subjective Service Date: 02/16/17 Patient is:: awake, non-verbal, non-interactive Per staff patient has:: no adverse event, poor appetite, tolerating meds Internal Medicine Objective - Results Result Diagrams: 02/11/17 14:31 02/11/17 14:31 Recent Labs: Laboratory Last Values WBC 8.4 Th/cmm (4.8-10.8) 02/11/17 14:31 RBC 4.06 Mil/cmm (3.80-5.80) 02/11/17 14:31 Hgb 12.0 gm/dL (12.6-17.4) L 02/11/17 14:31 Hct 36.1 % (39.0-49.0) L 02/11/17 14:31 MCV 88.7 fl (80-99) 02/11/17 14:31 MCH 29.5 pg (27.0-31.0) 02/11/17 14:31 MCHC Differential 33.3 pg (28.0-36.0) 02/11/17 14:31 RDW 14.1 % (11.5-20.0) 02/11/17 14:31 Plt Count 183 Th/cmm (150-400) 02/11/17 14:31 MPV 8.2 fl 02/11/17 14:31 Neutrophils % 81.1 % (40.0-80.0) H 02/11/17 14:31 Lymphocytes % 12.8 % (20.0-50.0) L 02/11/17 14:31 Monocytes % 3.8 % (2.0-10.0) 02/11/17 14:31 Eosinophils % 1.3 % (0.0-5.0) 02/11/17 14:31 Basophils % 1.0 % (0.0-2.0) 02/11/17 14:31 Sodium 137 mEq/L (136-145) 02/11/17 14:31 Potassium 3.8 mEq/L (3.5-5.1) 02/11/17 14:31 Chloride 105 mEq/L (98-107) 02/11/17 14:31 Carbon Dioxide 30.5 mEq/L (21.0-31.0) 02/11/17 14:31 Anion Gap 5.3 (7.0-16.0) L 02/11/17 14:31 BUN 21 mg/dL (7-25) 02/11/17 14:31 Creatinine 0.6 mg/dL (0.7-1.3) L 02/11/17 14:31 Est GFR ( Amer) > 60.0 ml/min (>90) 02/11/17 14:31 Est GFR (Non-Af Amer) > 60.0 ml/min 02/11/17 14:31 BUN/Creatinine Ratio 35.0 02/11/17 14:31 Glucose 122 mg/dL (70-105) H 02/11/17 14:31 POC Glucose 92 MG/DL (70 - 105) 02/15/17 06:18 Calcium 9.3 mg/dL (8.6-10.3) 02/11/17 14:31 Total Bilirubin 0.2 mg/dL (0.3-1.0) L 02/11/17 14:31 AST 15 U/L (13-39) 02/11/17 14:31 ALT 15 U/L (7-52) 02/11/17 14:31 Alkaline Phosphatase 104 U/L (34-104) 02/11/17 14:31 Troponin I 0.01 ng/mL (0.01-0.05) 02/11/17 14:31 Total Protein 6.9 gm/dL (6.0-8.3) 02/11/17 14:31 Albumin 3.7 gm/dL (4.2-5.5) L 02/11/17 14:31 Globulin 3.2 gm/dL 02/11/17 14:31 Albumin/Globulin Ratio 1.2 (1.0-1.8) 02/11/17 14:31 Triglycerides 119 mg/dL (<150) 02/11/17 14:31 Cholesterol 108 mg/dL (<200) 02/11/17 14:31 LDL Cholesterol Direct 47 mg/dL (75-193) L 02/11/17 14:31 HDL Cholesterol 45 mg/dL (23-92) 02/11/17 14:31 TSH 0.70 uIU/ml (0.34-5.60) 02/11/17 14:31 Urine Source CLEAN C 02/11/17 16:10 Urine Color YELLOW 02/11/17 16:10 Urine Clarity CLOUDY (CLEAR) 02/11/17 16:10 Urine pH 8.0 (4.6 - 8.0) 02/11/17 16:10 Ur Specific [place] 1.020 (1.005-1.030) 02/11/17 16:10 Urine Protein 30 mg/dL (NEGATIVE) H 02/11/17 16:10 Urine Glucose (UA) NEGATIVE mg/dL (NEGATIVE) 02/11/17 16:10 Urine Ketones NEGATIVE mg/dL (NEGATIVE) 02/11/17 16:10 Urine Blood SMALL (NEGATIVE) H 02/11/17 16:10 Urine Nitrate POSITIVE (NEGATIVE) H 02/11/17 16:10 Urine Bilirubin NEGATIVE (NEGATIVE) 02/11/17 16:10 Urine Urobilinogen 0.2 E.U./dL (0.2 - 1.0) 02/11/17 16:10 Ur Leukocyte Esterase LARGE (NEGATIVE) H 02/11/17 16:10 Urine RBC 2-5 /hpf (0-5) H 02/11/17 16:10 Urine WBC 25-50 /hpf (0-5) H 02/11/17 16:10 Ur Epithelial Cells NONE SEEN /lpf (FEW) 02/11/17 16:10 Urine Bacteria MANY /hpf (NONE SEEN) 02/11/17 16:10 Urine Opiates Screen NEGATIVE (NEGATIVE) 02/11/17 16:10 Urine Methadone Screen NEGATIVE (NEGATIVE) 02/11/17 16:10 Ur Barbiturates Screen NEGATIVE (NEGATIVE) 02/11/17 16:10 Valproic Acid < 10.0 ug/mL (50.0-100.0) L 02/11/17 14:31 Ur Tricyclics Screen NEGATIVE (NEGATIVE) 02/11/17 16:10 Ur Phencyclidine Scrn NEGATIVE (NEGATIVE) 02/11/17 16:10 Amphetamines Screen NEGATIVE (NEGATIVE) 02/11/17 16:10 U Methamphetamines Scrn NEGATIVE (NEGATIVE) 02/11/17 16:10 U Benzodiazepines Scrn POSITIVE (NEGATIVE) H 02/11/17 16:10 U Cocaine Metab Screen NEGATIVE (NEGATIVE) 02/11/17 16:10 U Cannabinoids Screen NEGATIVE (NEGATIVE) 02/11/17 16:10 RPR NONREACTIVE (NONREACTIVE) 02/11/17 14:31 - Physical Exam Vitals and I&O: Vital Signs Temp 97.2 F 02/16/17 06:37 Pulse 70 02/16/17 06:37 Resp 20 02/16/17 06:37 BP 116/73 02/16/17 06:37 Pulse Ox 98 02/16/17 06:37 Intake & Output 02/15/17 02/16/17 02/16/17 18:59 06:59 18:59 Intake Total 1800 120 Balance 1800 120 Intake: Oral 1800 120 Other: # Voids 3 3 Active Medications: Current Medications Acetaminophen (Tylenol) 650 mg PO Q6HR PRN PRN Reason: PAIN OR TEMP >101 Stop: 04/12/17 18:04 Al Hydrox/Mg Hydrox/Simethicone (Maalox) 30 ml PO Q4HR PRN PRN Reason: GI DISTRESS Stop: 04/12/17 18:07 Ciprofloxacin (Cipro) 500 mg PO BID [facility] Stop: 02/17/17 16:59 Last Admin: 02/16/17 09:12 Dose: 500 mg Cyanocobalamin (Vitamin B12) 500 mcg PO DAILY [facility] Stop: 04/15/17 08:59 Last Admin: 02/16/17 09:12 Dose: 500 mcg Divalproex Sodium (Depakote Dr) 125 mg PO Q12H ERIC PRN Reason: Protocol Stop: 04/14/17 20:59 Last Admin: 02/16/17 09:13 Dose: 125 mg Docusate Sodium (Colace) 100 mg PO BID [facility] Stop: 04/13/17 08:59 Last Admin: 02/16/17 09:12 Dose: 100 mg Folic Acid (Folate) 1 mg PO DAILY [facility] Stop: 04/13/17 08:59 Last Admin: 02/16/17 09:12 Dose: 1 mg Insulin Aspart (Novolog Insulin Sliding Scale) 0 units SUBQ ACHS ERIC PRN Reason: Protocol Stop: 04/13/17 07:29 Last Admin: 02/16/17 06:37 Dose: Not Given Lorazepam (Ativan) 0.5 mg PO Q4HR PRN; Protocol PRN Reason: Anxiety Stop: 03/13/17 18:07 Magnesium Hydroxide (Milk Of Magnesia) 30 ml PO HS PRN PRN Reason: Constipation Metformin HCl (Glucophage) 500 mg PO BID [facility] Stop: 04/13/17 08:59 Last Admin: 02/16/17 09:13 Dose: 500 mg Miscellaneous (Armodafinil [Nuvigil]) 200 mg PO DAILY [facility] Stop: 04/13/17 08:59 Nicotine (Nicotine Transdermal System) 14 mg TD DAILY [facility] Stop: 04/13/17 08:59 Last Admin: 02/16/17 09:14 Dose: Not Given Pantoprazole Sodium (Protonix) 40 mg PO QDAC ERIC Stop: 04/13/17 07:29 Last Admin: 02/16/17 06:37 Dose: Not Given Polyethylene Glycol (Miralax) 17 gm PO DAILY [facility] Stop: 04/13/17 08:59 Last Admin: 02/16/17 09:14 Dose: 17 gm Quetiapine Fumarate (Seroquel) 25 mg PO HS ERIC Stop: 04/15/17 20:59 Last Admin: 02/15/17 20:19 Dose: Not Given Thiamine HCl (Vitamin B1) 100 mg PO DAILY [facility] Stop: 04/13/17 08:59 Last Admin: 02/16/17 09:15 Dose: 100 mg Zolpidem Tartrate (Ambien) 5 mg PO HS PRN PRN Reason: Insomnia Stop: 04/12/17 18:07 General: demented HEENT: NC/AT, PERRLA Neck: Supple, No JVD Lungs: congested Cardiovascular: RRR, Normal S1, Normal S2, with murmur Abdomen: soft, thin, globular Extremities: excoriation, contracture, deformity Neurological: no change, lethargic Internal Medicine Assmt/Plan - Assessment Assessment: COPD diabetes CAD hypertension gait instability GERD stroke HX CVA schizoaffective disorder anemia low albumin uti - Plan Plan: monitor glucose fall precautions continue current plan of care Nutritional Asmnt/Malnutr-PDOC - Dietary Evaluation Malnutrition Findings (Please click <Entered> for more info): Nutritional Asmnt/Malnutrition Start: 02/15/17 15: 13 Text: Status: Complete Freq: Document 02/15/17 15:13 GSUN (Rec: 02/15/17 15:24 GSUN [id number]) Nutritional Asmnt/Malnutrition Patient General Information Nutritional Screening Moderate Risk Screening Diagnosis Psychosis, hx bipolar disorder mixed with psychotic symptoms Pertinent Medical Hx/Surgical Hx COPD, DM, HTN, GERD, stroke, schizoaffective disorder Subjective Information 71 year old male from SNF. Per RN notes, pt is disorientated . Pt seen in armando chair in rec room. RD greeted pt several times, pt asleep with head down close to lap, unable to complete full physical assessment. Pt apepared overall thin, hx weight/fat loss noted with loose skin, arm muscles present. Avg PO intake 58% of meals since adm, meeting 75% lwoer end kcal needs. Current Diet Order/ Nutrition Support Cardiac pureed Pertinent Medications Vitamin B12, Colace, Folate, Novolog, MOM Glucophage, Miralax, Seroquel, Vitamin B1 Pertinent Labs 02/11: glucose 122H POC glucose 92-130 since adm Nutritional Hx/Data Height 5 ft 7 in Height (Calculated Centimeters) 170.2 Current Weight (lbs) 146 lb Weight (Calculated Kilograms) 66.2 Weight (Calculated Grams) 05630.5 [place] Body Weight 148 Weight Status Approriate GI Symptoms Usual diet at home [facility] SNF: cardiac , pureed Skin Integrity/Comment: Jim 16. Skin intact. Current %PO Fair (50-74%) Estimated Nutritional Goals BEE in Kcals: Using Current wt Calories/Kcals/Kg CBW 146lb/66.4kg Kcals Calculated 1660-1992kcal (25-30kcal/kg) Protein: Using Current wt Protein Calculated 66g (1g/kg) Fluid: ml 1660-1992ml (1ml/kcal) Nutritional Problem 1. Problem Problem Inadequate oral food beverage intake related to Etiology unknown, possibly cognition aeb Signs/Symptoms: avg PO intake 58% of meals since adm, meeting 75% lwoer end kcal needs. Intervention/Recommendation Comments 1. Continue with current diet order. No CCHO restriction due to inadequate PO intake, only meeting 75% of lower end kcal needs. 2. Recommend Boost Glucose Control BID. 3. Monitor weight. Pt noted with mild-moderate fat wasting . Expected Outcomes/Goals Expected Outcomes/Goals 1. PO intake to meet 100% of estimated nutritional needs.
[2017-02-17] MEDS: Pantoprazole 40 mg EC Tab PO SCH (07:00)
[2017-02-17] MEDS: INSULIN ASPART SLIDING SCALE 100 UNITS/ML UNIT SUBQ SCH ×4 (07:03→22:11)
[2017-02-17] MEDS: POLYETHYLENE GLYCOL 3350 17 GM PACK PO SCH (09:19)
[2017-02-17] MEDS: Nicotine 14 mg/24 hr Tdm TD SCH (09:21)
--- NOTE | 2017-02-17 13:34 | Internal Medicine Prog Note ---
Internal Medicine Subjective - Subjective Service Date: 02/17/17 Patient is:: awake, non-verbal, non-interactive Per staff patient has:: no adverse event, poor appetite, tolerating meds Internal Medicine Objective - Results Result Diagrams: 02/11/17 14:31 02/11/17 14:31 Recent Labs: Laboratory Last Values WBC 8.4 Th/cmm (4.8-10.8) 02/11/17 14:31 RBC 4.06 Mil/cmm (3.80-5.80) 02/11/17 14:31 Hgb 12.0 gm/dL (12.6-17.4) L 02/11/17 14:31 Hct 36.1 % (39.0-49.0) L 02/11/17 14:31 MCV 88.7 fl (80-99) 02/11/17 14:31 MCH 29.5 pg (27.0-31.0) 02/11/17 14:31 MCHC Differential 33.3 pg (28.0-36.0) 02/11/17 14:31 RDW 14.1 % (11.5-20.0) 02/11/17 14:31 Plt Count 183 Th/cmm (150-400) 02/11/17 14:31 MPV 8.2 fl 02/11/17 14:31 Neutrophils % 81.1 % (40.0-80.0) H 02/11/17 14:31 Lymphocytes % 12.8 % (20.0-50.0) L 02/11/17 14:31 Monocytes % 3.8 % (2.0-10.0) 02/11/17 14:31 Eosinophils % 1.3 % (0.0-5.0) 02/11/17 14:31 Basophils % 1.0 % (0.0-2.0) 02/11/17 14:31 Sodium 137 mEq/L (136-145) 02/11/17 14:31 Potassium 3.8 mEq/L (3.5-5.1) 02/11/17 14:31 Chloride 105 mEq/L (98-107) 02/11/17 14:31 Carbon Dioxide 30.5 mEq/L (21.0-31.0) 02/11/17 14:31 Anion Gap 5.3 (7.0-16.0) L 02/11/17 14:31 BUN 21 mg/dL (7-25) 02/11/17 14:31 Creatinine 0.6 mg/dL (0.7-1.3) L 02/11/17 14:31 Est GFR ( Amer) > 60.0 ml/min (>90) 02/11/17 14:31 Est GFR (Non-Af Amer) > 60.0 ml/min 02/11/17 14:31 BUN/Creatinine Ratio 35.0 02/11/17 14:31 Glucose 122 mg/dL (70-105) H 02/11/17 14:31 POC Glucose 104 MG/DL (70 - 105) 02/17/17 11:34 Calcium 9.3 mg/dL (8.6-10.3) 02/11/17 14:31 Total Bilirubin 0.2 mg/dL (0.3-1.0) L 02/11/17 14:31 AST 15 U/L (13-39) 02/11/17 14:31 ALT 15 U/L (7-52) 02/11/17 14:31 Alkaline Phosphatase 104 U/L (34-104) 02/11/17 14:31 Troponin I 0.01 ng/mL (0.01-0.05) 02/11/17 14:31 Total Protein 6.9 gm/dL (6.0-8.3) 02/11/17 14:31 Albumin 3.7 gm/dL (4.2-5.5) L 02/11/17 14:31 Globulin 3.2 gm/dL 02/11/17 14:31 Albumin/Globulin Ratio 1.2 (1.0-1.8) 02/11/17 14:31 Triglycerides 119 mg/dL (<150) 02/11/17 14:31 Cholesterol 108 mg/dL (<200) 02/11/17 14:31 LDL Cholesterol Direct 47 mg/dL (75-193) L 02/11/17 14:31 HDL Cholesterol 45 mg/dL (23-92) 02/11/17 14:31 TSH 0.70 uIU/ml (0.34-5.60) 02/11/17 14:31 Urine Source CLEAN C 02/11/17 16:10 Urine Color YELLOW 02/11/17 16:10 Urine Clarity CLOUDY (CLEAR) 02/11/17 16:10 Urine pH 8.0 (4.6 - 8.0) 02/11/17 16:10 Ur Specific [place] 1.020 (1.005-1.030) 02/11/17 16:10 Urine Protein 30 mg/dL (NEGATIVE) H 02/11/17 16:10 Urine Glucose (UA) NEGATIVE mg/dL (NEGATIVE) 02/11/17 16:10 Urine Ketones NEGATIVE mg/dL (NEGATIVE) 02/11/17 16:10 Urine Blood SMALL (NEGATIVE) H 02/11/17 16:10 Urine Nitrate POSITIVE (NEGATIVE) H 02/11/17 16:10 Urine Bilirubin NEGATIVE (NEGATIVE) 02/11/17 16:10 Urine Urobilinogen 0.2 E.U./dL (0.2 - 1.0) 02/11/17 16:10 Ur Leukocyte Esterase LARGE (NEGATIVE) H 02/11/17 16:10 Urine RBC 2-5 /hpf (0-5) H 02/11/17 16:10 Urine WBC 25-50 /hpf (0-5) H 02/11/17 16:10 Ur Epithelial Cells NONE SEEN /lpf (FEW) 02/11/17 16:10 Urine Bacteria MANY /hpf (NONE SEEN) 02/11/17 16:10 Urine Opiates Screen NEGATIVE (NEGATIVE) 02/11/17 16:10 Urine Methadone Screen NEGATIVE (NEGATIVE) 02/11/17 16:10 Ur Barbiturates Screen NEGATIVE (NEGATIVE) 02/11/17 16:10 Valproic Acid < 10.0 ug/mL (50.0-100.0) L 02/11/17 14:31 Ur Tricyclics Screen NEGATIVE (NEGATIVE) 02/11/17 16:10 Ur Phencyclidine Scrn NEGATIVE (NEGATIVE) 02/11/17 16:10 Amphetamines Screen NEGATIVE (NEGATIVE) 02/11/17 16:10 U Methamphetamines Scrn NEGATIVE (NEGATIVE) 02/11/17 16:10 U Benzodiazepines Scrn POSITIVE (NEGATIVE) H 02/11/17 16:10 U Cocaine Metab Screen NEGATIVE (NEGATIVE) 02/11/17 16:10 U Cannabinoids Screen NEGATIVE (NEGATIVE) 02/11/17 16:10 RPR NONREACTIVE (NONREACTIVE) 02/11/17 14:31 - Physical Exam Vitals and I&O: Vital Signs Temp 98 F 02/16/17 20:11 Pulse 94 02/16/17 20:11 Resp 20 02/16/17 20:11 BP 140/60 02/16/17 20:11 Pulse Ox 97 02/16/17 20:11 Intake & Output 02/16/17 02/17/17 02/17/17 18:59 06:59 18:59 Intake Total 720 120 Balance 720 120 Intake: Oral 720 120 Other: # Voids 4 1 # Bowel Movements 2 Active Medications: Current Medications Acetaminophen (Tylenol) 650 mg PO Q6HR PRN PRN Reason: PAIN OR TEMP >101 Stop: 04/12/17 18:04 Al Hydrox/Mg Hydrox/Simethicone (Maalox) 30 ml PO Q4HR PRN PRN Reason: GI DISTRESS Stop: 04/12/17 18:07 Ciprofloxacin (Cipro) 500 mg PO BID [facility] Stop: 02/17/17 16:59 Last Admin: 02/17/17 09:19 Dose: 500 mg Cyanocobalamin (Vitamin B12) 500 mcg PO DAILY [facility] Stop: 04/15/17 08:59 Last Admin: 02/17/17 09:19 Dose: 500 mcg Divalproex Sodium (Depakote Dr) 125 mg PO Q12H ERIC PRN Reason: Protocol Stop: 04/14/17 20:59 Last Admin: 02/17/17 09:21 Dose: 125 mg Docusate Sodium (Colace) 100 mg PO BID [facility] Stop: 04/13/17 08:59 Last Admin: 02/17/17 09:19 Dose: 100 mg Folic Acid (Folate) 1 mg PO DAILY [facility] Stop: 04/13/17 08:59 Last Admin: 02/17/17 09:21 Dose: 1 mg Insulin Aspart (Novolog Insulin Sliding Scale) 0 units SUBQ ACHS ERIC PRN Reason: Protocol Stop: 04/13/17 07:29 Last Admin: 02/17/17 07:03 Dose: Not Given Lorazepam (Ativan) 0.5 mg PO Q4HR PRN; Protocol PRN Reason: Anxiety Stop: 03/13/17 18:07 Magnesium Hydroxide (Milk Of Magnesia) 30 ml PO HS PRN PRN Reason: Constipation Metformin HCl (Glucophage) 500 mg PO BID [facility] Stop: 04/13/17 08:59 Last Admin: 02/17/17 09:20 Dose: 500 mg Miscellaneous (Armodafinil [Nuvigil]) 200 mg PO DAILY [facility] Stop: 04/13/17 08:59 Nicotine (Nicotine Transdermal System) 14 mg TD DAILY [facility] Stop: 04/13/17 08:59 Last Admin: 02/17/17 09:21 Dose: Not Given Pantoprazole Sodium (Protonix) 40 mg PO QDAC ERIC Stop: 04/13/17 07:29 Last Admin: 02/17/17 07:00 Dose: 40 mg Polyethylene Glycol (Miralax) 17 gm PO DAILY [facility] Stop: 04/13/17 08:59 Last Admin: 02/17/17 09:19 Dose: 17 gm Quetiapine Fumarate (Seroquel) 25 mg PO HS [facility] Stop: 04/15/17 20:59 Last Admin: 02/16/17 21:04 Dose: 25 mg Thiamine HCl (Vitamin B1) 100 mg PO DAILY [facility] Stop: 04/13/17 08:59 Last Admin: 02/17/17 09:19 Dose: 100 mg Zolpidem Tartrate (Ambien) 5 mg PO HS PRN PRN Reason: Insomnia Stop: 04/12/17 18:07 General: demented HEENT: NC/AT, PERRLA Neck: Supple, No JVD Lungs: congested Cardiovascular: RRR, Normal S1, Normal S2, with murmur Abdomen: soft, thin, globular Extremities: excoriation, contracture, deformity Neurological: no change, lethargic Internal Medicine Assmt/Plan - Assessment Assessment: COPD diabetes CAD hypertension gait instability GERD stroke HX CVA schizoaffective disorder anemia low albumin uti - Plan Plan: monitor glucose fall precautions continue current plan of care Nutritional Asmnt/Malnutr-PDOC - Dietary Evaluation Malnutrition Findings (Please click <Entered> for more info): Nutritional Asmnt/Malnutrition Start: 02/15/17 15: 13 Text: Status: Complete Freq: Document 02/15/17 15:13 GSUN (Rec: 02/15/17 15:24 GSUN [id number]) Nutritional Asmnt/Malnutrition Patient General Information Nutritional Screening Moderate Risk Screening Diagnosis Psychosis, hx bipolar disorder mixed with psychotic symptoms Pertinent Medical Hx/Surgical Hx COPD, DM, HTN, GERD, stroke, schizoaffective disorder Subjective Information 71 year old male from SNF. Per RN notes, pt is disorientated . Pt seen in armando chair in rec room. RD greeted pt several times, pt asleep with head down close to lap, unable to complete full physical assessment. Pt apepared overall thin, hx weight/fat loss noted with loose skin, arm muscles present. Avg PO intake 58% of meals since adm, meeting 75% lwoer end kcal needs. Current Diet Order/ Nutrition Support Cardiac pureed Pertinent Medications Vitamin B12, Colace, Folate, Novolog, MOM Glucophage, Miralax, Seroquel, Vitamin B1 Pertinent Labs 02/11: glucose 122H POC glucose 92-130 since adm Nutritional Hx/Data Height 5 ft 7 in Height (Calculated Centimeters) 170.2 Current Weight (lbs) 146 lb Weight (Calculated Kilograms) 66.2 Weight (Calculated Grams) 05494.5 [place] Body Weight 148 Weight Status Approriate GI Symptoms Usual diet at home [facility] SNF: cardiac , pureed Skin Integrity/Comment: Jim 16. Skin intact. Current %PO Fair (50-74%) Estimated Nutritional Goals BEE in Kcals: Using Current wt Calories/Kcals/Kg CBW 146lb/66.4kg Kcals Calculated 1660-1992kcal (25-30kcal/kg) Protein: Using Current wt Protein Calculated 66g (1g/kg) Fluid: ml 1660-1992ml (1ml/kcal) Nutritional Problem 1. Problem Problem Inadequate oral food beverage intake related to Etiology unknown, possibly cognition aeb Signs/Symptoms: avg PO intake 58% of meals since adm, meeting 75% lwoer end kcal needs. Intervention/Recommendation Comments 1. Continue with current diet order. No CCHO restriction due to inadequate PO intake, only meeting 75% of lower end kcal needs. 2. Recommend Boost Glucose Control BID. 3. Monitor weight. Pt noted with mild-moderate fat wasting . Expected Outcomes/Goals Expected Outcomes/Goals 1. PO intake to meet 100% of estimated nutritional needs.
--- NOTE | 2017-02-17 21:57 | Progress Notes ---
DATE: 02/16/2017 PSYCHIATRIC PROGRESS NOTE SUBJECTIVE: Staff was spoken to. The patient is interviewed. Mood is noted to be irritable. Affect is constricted. The patient is isolative and withdrawn. No major behavioral problems are noted today, but the patient continues to be confused and is responding to the internal stimuli. ASSESSMENT: The patient is still psychotic, confused and demented. PLAN: To continue the patient with supportive therapy. I encouraged the patient to verbalize the concerns rather than to act out. The patient is not ready to be discharged to a lower level of care yet. JOB# [id number]
[2017-02-18] MEDS: Pantoprazole 40 mg EC Tab PO SCH (06:56)
[2017-02-18] MEDS: INSULIN ASPART SLIDING SCALE 100 UNITS/ML UNIT SUBQ SCH ×5 (07:06→20:25)
[2017-02-18] MEDS: POLYETHYLENE GLYCOL 3350 17 GM PACK PO SCH (09:23)
[2017-02-18] MEDS: Nicotine 14 mg/24 hr Tdm TD SCH (09:23)
--- NOTE | 2017-02-18 10:09 | Progress Notes ---
DATE: 02/17/2017 SUBJECTIVE: Staff was spoken to. The patient is interviewed. Mood is noted to be irritable. Affect is constricted. Insight and judgment at this time are noted to be still impaired. Impulse control seems to be poor. Coping skills are noted to be poor. The patient has been having difficult time to cope with the stress. No side effects to the medications are noted at this time. ASSESSMENT: The patient is able to comply with the treatment today. The patient is currently on the Seroquel and has been able to tolerate the medication. No major behavioral problems are reported today. PLAN: To closely monitor the patient. I encouraged the patient to verbalize the concerns rather than to act out. [facility]# [id number]
--- NOTE | 2017-02-18 13:53 | Internal Medicine Prog Note ---
Internal Medicine Subjective - Subjective Service Date: 02/18/17 Patient is:: awake, non-verbal, non-interactive Per staff patient has:: no adverse event, poor appetite, tolerating meds Internal Medicine Objective - Results Result Diagrams: 02/11/17 14:31 02/11/17 14:31 Recent Labs: Laboratory Last Values WBC 8.4 Th/cmm (4.8-10.8) 02/11/17 14:31 RBC 4.06 Mil/cmm (3.80-5.80) 02/11/17 14:31 Hgb 12.0 gm/dL (12.6-17.4) L 02/11/17 14:31 Hct 36.1 % (39.0-49.0) L 02/11/17 14:31 MCV 88.7 fl (80-99) 02/11/17 14:31 MCH 29.5 pg (27.0-31.0) 02/11/17 14:31 MCHC Differential 33.3 pg (28.0-36.0) 02/11/17 14:31 RDW 14.1 % (11.5-20.0) 02/11/17 14:31 Plt Count 183 Th/cmm (150-400) 02/11/17 14:31 MPV 8.2 fl 02/11/17 14:31 Neutrophils % 81.1 % (40.0-80.0) H 02/11/17 14:31 Lymphocytes % 12.8 % (20.0-50.0) L 02/11/17 14:31 Monocytes % 3.8 % (2.0-10.0) 02/11/17 14:31 Eosinophils % 1.3 % (0.0-5.0) 02/11/17 14:31 Basophils % 1.0 % (0.0-2.0) 02/11/17 14:31 Sodium 137 mEq/L (136-145) 02/11/17 14:31 Potassium 3.8 mEq/L (3.5-5.1) 02/11/17 14:31 Chloride 105 mEq/L (98-107) 02/11/17 14:31 Carbon Dioxide 30.5 mEq/L (21.0-31.0) 02/11/17 14:31 Anion Gap 5.3 (7.0-16.0) L 02/11/17 14:31 BUN 21 mg/dL (7-25) 02/11/17 14:31 Creatinine 0.6 mg/dL (0.7-1.3) L 02/11/17 14:31 Est GFR ( Amer) > 60.0 ml/min (>90) 02/11/17 14:31 Est GFR (Non-Af Amer) > 60.0 ml/min 02/11/17 14:31 BUN/Creatinine Ratio 35.0 02/11/17 14:31 Glucose 122 mg/dL (70-105) H 02/11/17 14:31 POC Glucose 92 MG/DL (70 - 105) 02/18/17 11:16 Calcium 9.3 mg/dL (8.6-10.3) 02/11/17 14:31 Total Bilirubin 0.2 mg/dL (0.3-1.0) L 02/11/17 14:31 AST 15 U/L (13-39) 02/11/17 14:31 ALT 15 U/L (7-52) 02/11/17 14:31 Alkaline Phosphatase 104 U/L (34-104) 02/11/17 14:31 Troponin I 0.01 ng/mL (0.01-0.05) 02/11/17 14:31 Total Protein 6.9 gm/dL (6.0-8.3) 02/11/17 14:31 Albumin 3.7 gm/dL (4.2-5.5) L 02/11/17 14:31 Globulin 3.2 gm/dL 02/11/17 14:31 Albumin/Globulin Ratio 1.2 (1.0-1.8) 02/11/17 14:31 Triglycerides 119 mg/dL (<150) 02/11/17 14:31 Cholesterol 108 mg/dL (<200) 02/11/17 14:31 LDL Cholesterol Direct 47 mg/dL (75-193) L 02/11/17 14:31 HDL Cholesterol 45 mg/dL (23-92) 02/11/17 14:31 TSH 0.70 uIU/ml (0.34-5.60) 02/11/17 14:31 Urine Source CLEAN C 02/11/17 16:10 Urine Color YELLOW 02/11/17 16:10 Urine Clarity CLOUDY (CLEAR) 02/11/17 16:10 Urine pH 8.0 (4.6 - 8.0) 02/11/17 16:10 Ur Specific [place] 1.020 (1.005-1.030) 02/11/17 16:10 Urine Protein 30 mg/dL (NEGATIVE) H 02/11/17 16:10 Urine Glucose (UA) NEGATIVE mg/dL (NEGATIVE) 02/11/17 16:10 Urine Ketones NEGATIVE mg/dL (NEGATIVE) 02/11/17 16:10 Urine Blood SMALL (NEGATIVE) H 02/11/17 16:10 Urine Nitrate POSITIVE (NEGATIVE) H 02/11/17 16:10 Urine Bilirubin NEGATIVE (NEGATIVE) 02/11/17 16:10 Urine Urobilinogen 0.2 E.U./dL (0.2 - 1.0) 02/11/17 16:10 Ur Leukocyte Esterase LARGE (NEGATIVE) H 02/11/17 16:10 Urine RBC 2-5 /hpf (0-5) H 02/11/17 16:10 Urine WBC 25-50 /hpf (0-5) H 02/11/17 16:10 Ur Epithelial Cells NONE SEEN /lpf (FEW) 02/11/17 16:10 Urine Bacteria MANY /hpf (NONE SEEN) 02/11/17 16:10 Urine Opiates Screen NEGATIVE (NEGATIVE) 02/11/17 16:10 Urine Methadone Screen NEGATIVE (NEGATIVE) 02/11/17 16:10 Ur Barbiturates Screen NEGATIVE (NEGATIVE) 02/11/17 16:10 Valproic Acid < 10.0 ug/mL (50.0-100.0) L 02/11/17 14:31 Ur Tricyclics Screen NEGATIVE (NEGATIVE) 02/11/17 16:10 Ur Phencyclidine Scrn NEGATIVE (NEGATIVE) 02/11/17 16:10 Amphetamines Screen NEGATIVE (NEGATIVE) 02/11/17 16:10 U Methamphetamines Scrn NEGATIVE (NEGATIVE) 02/11/17 16:10 U Benzodiazepines Scrn POSITIVE (NEGATIVE) H 02/11/17 16:10 U Cocaine Metab Screen NEGATIVE (NEGATIVE) 02/11/17 16:10 U Cannabinoids Screen NEGATIVE (NEGATIVE) 02/11/17 16:10 RPR NONREACTIVE (NONREACTIVE) 02/11/17 14:31 - Physical Exam Vitals and I&O: Vital Signs Temp 97.8 F 02/18/17 06:37 Pulse 68 02/18/17 06:37 Resp 19 02/18/17 06:37 BP 137/64 02/18/17 06:37 Pulse Ox 95 02/18/17 06:37 Intake & Output 02/17/17 02/18/17 02/18/17 18:59 06:59 18:59 Intake Total 800 180 Balance 800 180 Intake: Oral 800 180 Other: # Voids 4 2 # Bowel Movements 2 0 Active Medications: Current Medications Acetaminophen (Tylenol) 650 mg PO Q6HR PRN PRN Reason: PAIN OR TEMP >101 Stop: 04/12/17 18:04 Al Hydrox/Mg Hydrox/Simethicone (Maalox) 30 ml PO Q4HR PRN PRN Reason: GI DISTRESS Stop: 04/12/17 18:07 Cyanocobalamin (Vitamin B12) 500 mcg PO DAILY [facility] Stop: 04/15/17 08:59 Last Admin: 02/18/17 09:22 Dose: 500 mcg Divalproex Sodium (Depakote Dr) 125 mg PO Q12H ERIC PRN Reason: Protocol Stop: 04/14/17 20:59 Last Admin: 02/18/17 09:22 Dose: 125 mg Docusate Sodium (Colace) 100 mg PO BID [facility] Stop: 04/13/17 08:59 Last Admin: 02/18/17 09:23 Dose: 100 mg Folic Acid (Folate) 1 mg PO DAILY [facility] Stop: 04/13/17 08:59 Last Admin: 02/18/17 09:23 Dose: 1 mg Insulin Aspart (Novolog Insulin Sliding Scale) 0 units SUBQ ACHS ERIC PRN Reason: Protocol Stop: 04/13/17 07:29 Last Admin: 02/18/17 07:11 Dose: Not Given Lorazepam (Ativan) 0.5 mg PO Q4HR PRN; Protocol PRN Reason: Anxiety Stop: 03/13/17 18:07 Last Admin: 02/17/17 15:34 Dose: 0.5 mg Magnesium Hydroxide (Milk Of Magnesia) 30 ml PO HS PRN PRN Reason: Constipation Metformin HCl (Glucophage) 500 mg PO BID [facility] Stop: 04/13/17 08:59 Last Admin: 02/18/17 09:23 Dose: 500 mg Miscellaneous (Armodafinil [Nuvigil]) 200 mg PO DAILY [facility] Stop: 04/13/17 08:59 Nicotine (Nicotine Transdermal System) 14 mg TD DAILY [facility] Stop: 04/13/17 08:59 Last Admin: 02/18/17 09:23 Dose: Not Given Pantoprazole Sodium (Protonix) 40 mg PO QDAC [facility] Stop: 04/13/17 07:29 Last Admin: 02/18/17 06:56 Dose: 40 mg Polyethylene Glycol (Miralax) 17 gm PO DAILY [facility] Stop: 04/13/17 08:59 Last Admin: 02/18/17 09:23 Dose: 17 gm Quetiapine Fumarate (Seroquel) 25 mg PO HS [facility] Stop: 04/15/17 20:59 Last Admin: 02/17/17 20:57 Dose: 25 mg Thiamine HCl (Vitamin B1) 100 mg PO DAILY [facility] Stop: 04/13/17 08:59 Last Admin: 02/18/17 09:23 Dose: 100 mg Zolpidem Tartrate (Ambien) 5 mg PO HS PRN PRN Reason: Insomnia Stop: 04/12/17 18:07 General: demented HEENT: NC/AT, PERRLA Neck: Supple, No JVD Lungs: congested Cardiovascular: RRR, Normal S1, Normal S2, with murmur Abdomen: soft, thin, globular Extremities: excoriation, contracture, deformity Neurological: no change, lethargic Internal Medicine Assmt/Plan - Assessment Assessment: COPD diabetes CAD hypertension gait instability GERD stroke HX CVA schizoaffective disorder anemia low albumin uti - Plan Plan: monitor glucose fall precautions continue current plan of care Nutritional Asmnt/Malnutr-PDOC - Dietary Evaluation Malnutrition Findings (Please click <Entered> for more info): Nutritional Asmnt/Malnutrition Start: 02/15/17 15: 13 Text: Status: Complete Freq: Document 02/15/17 15:13 GSUN (Rec: 02/15/17 15:24 GENE [email or web address]) Nutritional Asmnt/Malnutrition Patient General Information Nutritional Screening Moderate Risk Screening Diagnosis Psychosis, hx bipolar disorder mixed with psychotic symptoms Pertinent Medical Hx/Surgical Hx COPD, DM, HTN, GERD, stroke, schizoaffective disorder Subjective Information 71 year old male from SNF. Per RN notes, pt is disorientated . Pt seen in armando chair in rec room. RD greeted pt several times, pt asleep with head down close to lap, unable to complete full physical assessment. Pt apepared overall thin, hx weight/fat loss noted with loose skin, arm muscles present. Avg PO intake 58% of meals since adm, meeting 75% lwoer end kcal needs. Current Diet Order/ Nutrition Support Cardiac pureed Pertinent Medications Vitamin B12, Colace, Folate, Novolog, MOM Glucophage, Miralax, Seroquel, Vitamin B1 Pertinent Labs 02/11: glucose 122H POC glucose 92-130 since adm Nutritional Hx/Data Height 5 ft 7 in Height (Calculated Centimeters) 170.2 Current Weight (lbs) 146 lb Weight (Calculated Kilograms) 66.2 Weight (Calculated Grams) 72319.5 [place] Body Weight 148 Weight Status Approriate GI Symptoms Usual diet at home [facility] SNF: cardiac , pureed Skin Integrity/Comment: Jim 16. Skin intact. Current %PO Fair (50-74%) Estimated Nutritional Goals BEE in Kcals: Using Current wt Calories/Kcals/Kg CBW 146lb/66.4kg Kcals Calculated 1660-1992kcal (25-30kcal/kg) Protein: Using Current wt Protein Calculated 66g (1g/kg) Fluid: ml 1660-1992ml (1ml/kcal) Nutritional Problem 1. Problem Problem Inadequate oral food beverage intake related to Etiology unknown, possibly cognition aeb Signs/Symptoms: avg PO intake 58% of meals since adm, meeting 75% lwoer end kcal needs. Intervention/Recommendation Comments 1. Continue with current diet order. No CCHO restriction due to inadequate PO intake, only meeting 75% of lower end kcal needs. 2. Recommend Boost Glucose Control BID. 3. Monitor weight. Pt noted with mild-moderate fat wasting . Expected Outcomes/Goals Expected Outcomes/Goals 1. PO intake to meet 100% of estimated nutritional needs.
--- NOTE | 2017-02-18 21:51 | Admit Criteria Form ---
Admit Criteria Forms - Admit Criteria Diagnosis: PSYCHIATRIC DISORDERS (Place 'X' for any and all applicable criteria): Ongoing inpatient care may be needed for 1 or more of the following(1)(2)(3)(4)( 6)(7)(8): [ ]I. Danger to self or others not manageable at lower level of care. [ ]II. Grave disability (eg, inability to perform self care necessary at lower level of care) [ X]III. Agitation or inappropriate behavior interfering with care for primary condition (eg, attempting to discontinue lines or drains prematurely, unable to cooperate with respiratory care) [ ]IV. Severe disability or disorder indicated by ALL of the following: [ ]a) Severe behavioral health disorder-related symptoms or condition indicated by 1 or more of the following: [ ]i) Severe problem with cognition, memory, judgment, or impulse control [ ]ii) Severe clinical manifestations (eg, hallucinations, delusions, other acute psychotic symptoms, jennifer, extreme agitation or anxiety) [ ]b) Patient management at lower level of care is not feasible until acute intervention or modification is initiated. Extended stay beyond goal length of stay for the primary condition may be needed until ALLof the following are present(1)(2)(3)(4)(722)(23): [ ]a) Danger to self or others is absent or manageable at lower level of care [ ]b) Behavior crisis management, including physical or chemical restraints, is required and is not available at a lower level of care. [ ]c) Behavioral symptoms (e.g., agitation, somnolence, inappropriate behavior) are present, and are not manageable at a lower level of care. [ ]d) Patient cannot understand follow-up treatment and crisis plan. [ ]e) Provider and supports are sufficiently available at lower level of care. [ ]f) Patient can participate (e.g., verify absence of plan for harm) and is in needed of monitoring. The original [facility] content created by [facility] [employer] has been revised. The portions of the content which have been revised are identified through the use of italic text or in bold, and [facility] [employer] has neither reviewed nor approved the modified material. All other unmodified content is copyright [facility]. Please see references footnoted in the original [facility] edition 2017 Admit Criteria Met?: Yes
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
[2017-02-19] MEDS: Pantoprazole 40 mg EC Tab PO SCH (06:45)
[2017-02-19] MEDS: INSULIN ASPART SLIDING SCALE 100 UNITS/ML UNIT SUBQ SCH ×4 (06:49→20:11)
--- NOTE | 2017-02-19 09:15 | Internal Medicine Prog Note ---
Internal Medicine Subjective - Subjective Service Date: 02/19/17 Patient is:: awake, non-verbal, non-interactive Per staff patient has:: no adverse event, poor appetite, tolerating meds Internal Medicine Objective - Results Result Diagrams: 02/11/17 14:31 02/11/17 14:31 Recent Labs: Laboratory Last Values WBC 8.4 Th/cmm (4.8-10.8) 02/11/17 14:31 RBC 4.06 Mil/cmm (3.80-5.80) 02/11/17 14:31 Hgb 12.0 gm/dL (12.6-17.4) L 02/11/17 14:31 Hct 36.1 % (39.0-49.0) L 02/11/17 14:31 MCV 88.7 fl (80-99) 02/11/17 14:31 MCH 29.5 pg (27.0-31.0) 02/11/17 14:31 MCHC Differential 33.3 pg (28.0-36.0) 02/11/17 14:31 RDW 14.1 % (11.5-20.0) 02/11/17 14:31 Plt Count 183 Th/cmm (150-400) 02/11/17 14:31 MPV 8.2 fl 02/11/17 14:31 Neutrophils % 81.1 % (40.0-80.0) H 02/11/17 14:31 Lymphocytes % 12.8 % (20.0-50.0) L 02/11/17 14:31 Monocytes % 3.8 % (2.0-10.0) 02/11/17 14:31 Eosinophils % 1.3 % (0.0-5.0) 02/11/17 14:31 Basophils % 1.0 % (0.0-2.0) 02/11/17 14:31 Sodium 137 mEq/L (136-145) 02/11/17 14:31 Potassium 3.8 mEq/L (3.5-5.1) 02/11/17 14:31 Chloride 105 mEq/L (98-107) 02/11/17 14:31 Carbon Dioxide 30.5 mEq/L (21.0-31.0) 02/11/17 14:31 Anion Gap 5.3 (7.0-16.0) L 02/11/17 14:31 BUN 21 mg/dL (7-25) 02/11/17 14:31 Creatinine 0.6 mg/dL (0.7-1.3) L 02/11/17 14:31 Est GFR ( Amer) > 60.0 ml/min (>90) 02/11/17 14:31 Est GFR (Non-Af Amer) > 60.0 ml/min 02/11/17 14:31 BUN/Creatinine Ratio 35.0 02/11/17 14:31 Glucose 122 mg/dL (70-105) H 02/11/17 14:31 POC Glucose 84 MG/DL (70 - 105) 02/19/17 06:06 Calcium 9.3 mg/dL (8.6-10.3) 02/11/17 14:31 Total Bilirubin 0.2 mg/dL (0.3-1.0) L 02/11/17 14:31 AST 15 U/L (13-39) 02/11/17 14:31 ALT 15 U/L (7-52) 02/11/17 14:31 Alkaline Phosphatase 104 U/L (34-104) 02/11/17 14:31 Troponin I 0.01 ng/mL (0.01-0.05) 02/11/17 14:31 Total Protein 6.9 gm/dL (6.0-8.3) 02/11/17 14:31 Albumin 3.7 gm/dL (4.2-5.5) L 02/11/17 14:31 Globulin 3.2 gm/dL 02/11/17 14:31 Albumin/Globulin Ratio 1.2 (1.0-1.8) 02/11/17 14:31 Triglycerides 119 mg/dL (<150) 02/11/17 14:31 Cholesterol 108 mg/dL (<200) 02/11/17 14:31 LDL Cholesterol Direct 47 mg/dL (75-193) L 02/11/17 14:31 HDL Cholesterol 45 mg/dL (23-92) 02/11/17 14:31 TSH 0.70 uIU/ml (0.34-5.60) 02/11/17 14:31 Urine Source CLEAN C 02/11/17 16:10 Urine Color YELLOW 02/11/17 16:10 Urine Clarity CLOUDY (CLEAR) 02/11/17 16:10 Urine pH 8.0 (4.6 - 8.0) 02/11/17 16:10 Ur Specific [place] 1.020 (1.005-1.030) 02/11/17 16:10 Urine Protein 30 mg/dL (NEGATIVE) H 02/11/17 16:10 Urine Glucose (UA) NEGATIVE mg/dL (NEGATIVE) 02/11/17 16:10 Urine Ketones NEGATIVE mg/dL (NEGATIVE) 02/11/17 16:10 Urine Blood SMALL (NEGATIVE) H 02/11/17 16:10 Urine Nitrate POSITIVE (NEGATIVE) H 02/11/17 16:10 Urine Bilirubin NEGATIVE (NEGATIVE) 02/11/17 16:10 Urine Urobilinogen 0.2 E.U./dL (0.2 - 1.0) 02/11/17 16:10 Ur Leukocyte Esterase LARGE (NEGATIVE) H 02/11/17 16:10 Urine RBC 2-5 /hpf (0-5) H 02/11/17 16:10 Urine WBC 25-50 /hpf (0-5) H 02/11/17 16:10 Ur Epithelial Cells NONE SEEN /lpf (FEW) 02/11/17 16:10 Urine Bacteria MANY /hpf (NONE SEEN) 02/11/17 16:10 Urine Opiates Screen NEGATIVE (NEGATIVE) 02/11/17 16:10 Urine Methadone Screen NEGATIVE (NEGATIVE) 02/11/17 16:10 Ur Barbiturates Screen NEGATIVE (NEGATIVE) 02/11/17 16:10 Valproic Acid < 10.0 ug/mL (50.0-100.0) L 02/11/17 14:31 Ur Tricyclics Screen NEGATIVE (NEGATIVE) 02/11/17 16:10 Ur Phencyclidine Scrn NEGATIVE (NEGATIVE) 02/11/17 16:10 Amphetamines Screen NEGATIVE (NEGATIVE) 02/11/17 16:10 U Methamphetamines Scrn NEGATIVE (NEGATIVE) 02/11/17 16:10 U Benzodiazepines Scrn POSITIVE (NEGATIVE) H 02/11/17 16:10 U Cocaine Metab Screen NEGATIVE (NEGATIVE) 02/11/17 16:10 U Cannabinoids Screen NEGATIVE (NEGATIVE) 02/11/17 16:10 RPR NONREACTIVE (NONREACTIVE) 02/11/17 14:31 - Physical Exam Vitals and I&O: Vital Signs Temp 98.1 F 02/19/17 06:46 Pulse 55 02/19/17 06:46 Resp 20 02/19/17 06:46 BP 110/70 02/19/17 06:46 Pulse Ox 93 02/19/17 06:46 Intake & Output 02/18/17 02/19/17 02/19/17 18:59 06:59 18:59 Intake Total 1600 60 Balance 1600 60 Weight (lbs) 146 lb Intake: Oral 1600 60 Other: # Voids 4 3 # Bowel Movements 0 0 Active Medications: Current Medications Acetaminophen (Tylenol) 650 mg PO Q6HR PRN PRN Reason: PAIN OR TEMP >101 Stop: 04/12/17 18:04 Al Hydrox/Mg Hydrox/Simethicone (Maalox) 30 ml PO Q4HR PRN PRN Reason: GI DISTRESS Stop: 04/12/17 18:07 Cyanocobalamin (Vitamin B12) 500 mcg PO DAILY [facility] Stop: 04/15/17 08:59 Last Admin: 02/18/17 09:22 Dose: 500 mcg Divalproex Sodium (Depakote Dr) 125 mg PO Q12H ERIC PRN Reason: Protocol Stop: 04/14/17 20:59 Last Admin: 02/18/17 20:33 Dose: 125 mg Docusate Sodium (Colace) 100 mg PO BID [facility] Stop: 04/13/17 08:59 Last Admin: 02/18/17 16:58 Dose: 100 mg Folic Acid (Folate) 1 mg PO DAILY [facility] Stop: 04/13/17 08:59 Last Admin: 02/18/17 09:23 Dose: 1 mg Insulin Aspart (Novolog Insulin Sliding Scale) 0 units SUBQ ACHS ERIC PRN Reason: Protocol Stop: 04/13/17 07:29 Last Admin: 02/19/17 06:49 Dose: Not Given Lorazepam (Ativan) 0.5 mg PO Q4HR PRN; Protocol PRN Reason: Anxiety Stop: 03/13/17 18:07 Last Admin: 02/17/17 15:34 Dose: 0.5 mg Magnesium Hydroxide (Milk Of Magnesia) 30 ml PO HS PRN PRN Reason: Constipation Metformin HCl (Glucophage) 500 mg PO BID [facility] Stop: 04/13/17 08:59 Last Admin: 02/18/17 16:58 Dose: 500 mg Nicotine (Nicotine Transdermal System) 14 mg TD DAILY [facility] Stop: 04/13/17 08:59 Last Admin: 02/18/17 09:23 Dose: Not Given Pantoprazole Sodium (Protonix) 40 mg PO QDAC [facility] Stop: 04/13/17 07:29 Last Admin: 02/19/17 06:45 Dose: 40 mg Polyethylene Glycol (Miralax) 17 gm PO DAILY [facility] Stop: 04/13/17 08:59 Last Admin: 02/18/17 09:23 Dose: 17 gm Quetiapine Fumarate (Seroquel) 25 mg PO HS [facility] Stop: 04/15/17 20:59 Last Admin: 02/18/17 20:33 Dose: 25 mg Thiamine HCl (Vitamin B1) 100 mg PO DAILY [facility] Stop: 04/13/17 08:59 Last Admin: 02/18/17 09:23 Dose: 100 mg Zolpidem Tartrate (Ambien) 5 mg PO HS PRN PRN Reason: Insomnia Stop: 04/12/17 18:07 Last Admin: 02/18/17 20:33 Dose: 5 mg General: demented HEENT: NC/AT, PERRLA Neck: Supple, No JVD Lungs: congested Cardiovascular: RRR, Normal S1, Normal S2, with murmur Abdomen: soft, thin, globular Extremities: excoriation, contracture, deformity Neurological: no change, lethargic Internal Medicine Assmt/Plan - Assessment Assessment: COPD diabetes CAD hypertension gait instability GERD stroke HX CVA schizoaffective disorder anemia low albumin uti - Plan Plan: monitor glucose fall precautions continue current plan of care Nutritional Asmnt/Malnutr-PDOC - Dietary Evaluation Malnutrition Findings (Please click <Entered> for more info): Nutritional Asmnt/Malnutrition Start: 02/15/17 15: 13 Text: Status: Complete Freq: Document 02/15/17 15:13 GSUN (Rec: 02/15/17 15:24 GSUN [email or web address]) Nutritional Asmnt/Malnutrition Patient General Information Nutritional Screening Moderate Risk Screening Diagnosis Psychosis, hx bipolar disorder mixed with psychotic symptoms Pertinent Medical Hx/Surgical Hx COPD, DM, HTN, GERD, stroke, schizoaffective disorder Subjective Information 71 year old male from SNF. Per RN notes, pt is disorientated . Pt seen in armando chair in rec room. RD greeted pt several times, pt asleep with head down close to lap, unable to complete full physical assessment. Pt apepared overall thin, hx weight/fat loss noted with loose skin, arm muscles present. Avg PO intake 58% of meals since adm, meeting 75% lwoer end kcal needs. Current Diet Order/ Nutrition Support Cardiac pureed Pertinent Medications Vitamin B12, Colace, Folate, Novolog, MOM Glucophage, Miralax, Seroquel, Vitamin B1 Pertinent Labs 02/11: glucose 122H POC glucose 92-130 since adm Nutritional Hx/Data Height 5 ft 7 in Height (Calculated Centimeters) 170.2 Current Weight (lbs) 146 lb Weight (Calculated Kilograms) 66.2 Weight (Calculated Grams) 27224.5 [place] Body Weight 148 Weight Status Approriate GI Symptoms Usual diet at home [facility] SNF: cardiac , pureed Skin Integrity/Comment: Jim 16. Skin intact. Current %PO Fair (50-74%) Estimated Nutritional Goals BEE in Kcals: Using Current wt Calories/Kcals/Kg CBW 146lb/66.4kg Kcals Calculated 1660-1992kcal (25-30kcal/kg) Protein: Using Current wt Protein Calculated 66g (1g/kg) Fluid: ml 1660-1992ml (1ml/kcal) Nutritional Problem 1. Problem Problem Inadequate oral food beverage intake related to Etiology unknown, possibly cognition aeb Signs/Symptoms: avg PO intake 58% of meals since adm, meeting 75% lwoer end kcal needs. Intervention/Recommendation Comments 1. Continue with current diet order. No CCHO restriction due to inadequate PO intake, only meeting 75% of lower end kcal needs. 2. Recommend Boost Glucose Control BID. 3. Monitor weight. Pt noted with mild-moderate fat wasting . Expected Outcomes/Goals Expected Outcomes/Goals 1. PO intake to meet 100% of estimated nutritional needs.
[2017-02-19] MEDS: POLYETHYLENE GLYCOL 3350 17 GM PACK PO SCH (09:56)
[2017-02-19] MEDS: Nicotine 14 mg/24 hr Tdm TD SCH (09:57)
--- NOTE | 2017-02-20 02:58 | Progress Notes ---
DATE: 02/19/2017 SUBJECTIVE: Staff was spoken to. The patient is interviewed. Mood is noted to be irritable. Affect is constricted. Insight and judgment are noted to be still impaired. Impulse control seems to be limited. The patient has been very intrusive. The patient has been getting easily upset and has been getting into other people's rooms. The patient needs to be redirected, currently on Seroquel 25 mg and valproic acid 125 mg twice a day. The patient has been able to tolerate the medication. No side effects to the medications are noted. JOB# [id number]
[2017-02-20] MEDS: Pantoprazole 40 mg EC Tab PO SCH (06:45)
[2017-02-20] MEDS: INSULIN ASPART SLIDING SCALE 100 UNITS/ML UNIT SUBQ SCH ×4 (06:45→20:52)
[2017-02-20] MEDS: POLYETHYLENE GLYCOL 3350 17 GM PACK PO SCH (08:44)
[2017-02-20] MEDS: Nicotine 14 mg/24 hr Tdm TD SCH ×2 (08:59→09:04)
--- NOTE | 2017-02-20 14:18 | Internal Medicine Prog Note ---
Internal Medicine Subjective - Subjective Service Date: 02/20/17 Patient is:: awake, non-verbal, non-interactive Per staff patient has:: no adverse event, poor appetite, tolerating meds Internal Medicine Objective - Results Result Diagrams: 02/11/17 14:31 02/11/17 14:31 Recent Labs: Laboratory Last Values WBC 8.4 Th/cmm (4.8-10.8) 02/11/17 14:31 RBC 4.06 Mil/cmm (3.80-5.80) 02/11/17 14:31 Hgb 12.0 gm/dL (12.6-17.4) L 02/11/17 14:31 Hct 36.1 % (39.0-49.0) L 02/11/17 14:31 MCV 88.7 fl (80-99) 02/11/17 14:31 MCH 29.5 pg (27.0-31.0) 02/11/17 14:31 MCHC Differential 33.3 pg (28.0-36.0) 02/11/17 14:31 RDW 14.1 % (11.5-20.0) 02/11/17 14:31 Plt Count 183 Th/cmm (150-400) 02/11/17 14:31 MPV 8.2 fl 02/11/17 14:31 Neutrophils % 81.1 % (40.0-80.0) H 02/11/17 14:31 Lymphocytes % 12.8 % (20.0-50.0) L 02/11/17 14:31 Monocytes % 3.8 % (2.0-10.0) 02/11/17 14:31 Eosinophils % 1.3 % (0.0-5.0) 02/11/17 14:31 Basophils % 1.0 % (0.0-2.0) 02/11/17 14:31 Sodium 137 mEq/L (136-145) 02/11/17 14:31 Potassium 3.8 mEq/L (3.5-5.1) 02/11/17 14:31 Chloride 105 mEq/L (98-107) 02/11/17 14:31 Carbon Dioxide 30.5 mEq/L (21.0-31.0) 02/11/17 14:31 Anion Gap 5.3 (7.0-16.0) L 02/11/17 14:31 BUN 21 mg/dL (7-25) 02/11/17 14:31 Creatinine 0.6 mg/dL (0.7-1.3) L 02/11/17 14:31 Est GFR ( Amer) > 60.0 ml/min (>90) 02/11/17 14:31 Est GFR (Non-Af Amer) > 60.0 ml/min 02/11/17 14:31 BUN/Creatinine Ratio 35.0 02/11/17 14:31 Glucose 122 mg/dL (70-105) H 02/11/17 14:31 POC Glucose 90 MG/DL (70 - 105) 02/20/17 11:59 Calcium 9.3 mg/dL (8.6-10.3) 02/11/17 14:31 Total Bilirubin 0.2 mg/dL (0.3-1.0) L 02/11/17 14:31 AST 15 U/L (13-39) 02/11/17 14:31 ALT 15 U/L (7-52) 02/11/17 14:31 Alkaline Phosphatase 104 U/L (34-104) 02/11/17 14:31 Troponin I 0.01 ng/mL (0.01-0.05) 02/11/17 14:31 Total Protein 6.9 gm/dL (6.0-8.3) 02/11/17 14:31 Albumin 3.7 gm/dL (4.2-5.5) L 02/11/17 14:31 Globulin 3.2 gm/dL 02/11/17 14:31 Albumin/Globulin Ratio 1.2 (1.0-1.8) 02/11/17 14:31 Triglycerides 119 mg/dL (<150) 02/11/17 14:31 Cholesterol 108 mg/dL (<200) 02/11/17 14:31 LDL Cholesterol Direct 47 mg/dL (75-193) L 02/11/17 14:31 HDL Cholesterol 45 mg/dL (23-92) 02/11/17 14:31 TSH 0.70 uIU/ml (0.34-5.60) 02/11/17 14:31 Urine Source CLEAN C 02/11/17 16:10 Urine Color YELLOW 02/11/17 16:10 Urine Clarity CLOUDY (CLEAR) 02/11/17 16:10 Urine pH 8.0 (4.6 - 8.0) 02/11/17 16:10 Ur Specific [place] 1.020 (1.005-1.030) 02/11/17 16:10 Urine Protein 30 mg/dL (NEGATIVE) H 02/11/17 16:10 Urine Glucose (UA) NEGATIVE mg/dL (NEGATIVE) 02/11/17 16:10 Urine Ketones NEGATIVE mg/dL (NEGATIVE) 02/11/17 16:10 Urine Blood SMALL (NEGATIVE) H 02/11/17 16:10 Urine Nitrate POSITIVE (NEGATIVE) H 02/11/17 16:10 Urine Bilirubin NEGATIVE (NEGATIVE) 02/11/17 16:10 Urine Urobilinogen 0.2 E.U./dL (0.2 - 1.0) 02/11/17 16:10 Ur Leukocyte Esterase LARGE (NEGATIVE) H 02/11/17 16:10 Urine RBC 2-5 /hpf (0-5) H 02/11/17 16:10 Urine WBC 25-50 /hpf (0-5) H 02/11/17 16:10 Ur Epithelial Cells NONE SEEN /lpf (FEW) 02/11/17 16:10 Urine Bacteria MANY /hpf (NONE SEEN) 02/11/17 16:10 Urine Opiates Screen NEGATIVE (NEGATIVE) 02/11/17 16:10 Urine Methadone Screen NEGATIVE (NEGATIVE) 02/11/17 16:10 Ur Barbiturates Screen NEGATIVE (NEGATIVE) 02/11/17 16:10 Valproic Acid < 10.0 ug/mL (50.0-100.0) L 02/11/17 14:31 Ur Tricyclics Screen NEGATIVE (NEGATIVE) 02/11/17 16:10 Ur Phencyclidine Scrn NEGATIVE (NEGATIVE) 02/11/17 16:10 Amphetamines Screen NEGATIVE (NEGATIVE) 02/11/17 16:10 U Methamphetamines Scrn NEGATIVE (NEGATIVE) 02/11/17 16:10 U Benzodiazepines Scrn POSITIVE (NEGATIVE) H 02/11/17 16:10 U Cocaine Metab Screen NEGATIVE (NEGATIVE) 02/11/17 16:10 U Cannabinoids Screen NEGATIVE (NEGATIVE) 02/11/17 16:10 RPR NONREACTIVE (NONREACTIVE) 02/11/17 14:31 - Physical Exam Vitals and I&O: Vital Signs Temp 0 F 02/20/17 06:51 Pulse 70 02/20/17 10:08 Resp 18 02/20/17 10:08 BP 120/72 02/19/17 14:00 Pulse Ox 96 02/19/17 14:00 Intake & Output 02/19/17 02/20/17 02/20/17 18:59 06:59 18:59 Intake Total 1800 240 Output Total 0 Balance 1800 240 Weight (lbs) 146 lb Intake: Oral 1800 240 Output: Urine/Stool Mix 0 Other: # Voids 4 3 # Bowel Movements 0 0 Active Medications: Current Medications Acetaminophen (Tylenol) 650 mg PO Q6HR PRN PRN Reason: PAIN OR TEMP >101 Stop: 04/12/17 18:04 Al Hydrox/Mg Hydrox/Simethicone (Maalox) 30 ml PO Q4HR PRN PRN Reason: GI DISTRESS Stop: 04/12/17 18:07 Cyanocobalamin (Vitamin B12) 500 mcg PO DAILY [facility] Stop: 04/15/17 08:59 Last Admin: 02/20/17 08:42 Dose: 500 mcg Divalproex Sodium (Depakote Dr) 125 mg PO Q12H ERIC PRN Reason: Protocol Stop: 04/14/17 20:59 Last Admin: 02/20/17 08:43 Dose: 125 mg Docusate Sodium (Colace) 100 mg PO BID [facility] Stop: 04/13/17 08:59 Last Admin: 02/20/17 08:43 Dose: 100 mg Folic Acid (Folate) 1 mg PO DAILY [facility] Stop: 04/13/17 08:59 Last Admin: 02/20/17 08:44 Dose: 1 mg Insulin Aspart (Novolog Insulin Sliding Scale) 0 units SUBQ ACHS ERIC PRN Reason: Protocol Stop: 04/13/17 07:29 Last Admin: 02/20/17 06:45 Dose: Not Given Lorazepam (Ativan) 0.5 mg PO Q4HR PRN; Protocol PRN Reason: Anxiety Stop: 03/13/17 18:07 Last Admin: 02/20/17 08:43 Dose: 0.5 mg Magnesium Hydroxide (Milk Of Magnesia) 30 ml PO HS PRN PRN Reason: Constipation Metformin HCl (Glucophage) 500 mg PO BID [facility] Stop: 04/13/17 08:59 Last Admin: 02/20/17 08:43 Dose: 500 mg Nicotine (Nicotine Transdermal System) 14 mg TD DAILY [facility] Stop: 04/13/17 08:59 Last Admin: 02/20/17 09:04 Dose: 14 mg Pantoprazole Sodium (Protonix) 40 mg PO QDAC [facility] Stop: 04/13/17 07:29 Last Admin: 02/20/17 06:45 Dose: 40 mg Polyethylene Glycol (Miralax) 17 gm PO DAILY [facility] Stop: 04/13/17 08:59 Last Admin: 02/20/17 08:44 Dose: 17 gm Quetiapine Fumarate (Seroquel) 25 mg PO HS [facility] Stop: 04/15/17 20:59 Last Admin: 02/19/17 20:09 Dose: 25 mg Thiamine HCl (Vitamin B1) 100 mg PO DAILY [facility] Stop: 04/13/17 08:59 Last Admin: 02/20/17 08:43 Dose: 100 mg Zolpidem Tartrate (Ambien) 5 mg PO HS PRN PRN Reason: Insomnia Stop: 04/12/17 18:07 Last Admin: 02/18/17 20:33 Dose: 5 mg General: demented HEENT: NC/AT, PERRLA Neck: Supple, No JVD Lungs: congested Cardiovascular: RRR, Normal S1, Normal S2, with murmur Abdomen: soft, thin, globular Extremities: excoriation, contracture, deformity Neurological: no change, lethargic Internal Medicine Assmt/Plan - Assessment Assessment: COPD diabetes CAD hypertension gait instability GERD stroke HX CVA schizoaffective disorder anemia low albumin uti - Plan Plan: monitor glucose fall precautions continue current plan of care Nutritional Asmnt/Malnutr-PDOC - Dietary Evaluation Malnutrition Findings (Please click <Entered> for more info): Nutritional Asmnt/Malnutrition Start: 02/15/17 15: 13 Text: Status: Complete Freq: Document 02/15/17 15:13 GSUN (Rec: 02/15/17 15:24 [email or web address] [email or web address]) Nutritional Asmnt/Malnutrition Patient General Information Nutritional Screening Moderate Risk Screening Diagnosis Psychosis, hx bipolar disorder mixed with psychotic symptoms Pertinent Medical Hx/Surgical Hx COPD, DM, HTN, GERD, stroke, schizoaffective disorder Subjective Information 71 year old male from SNF. Per RN notes, pt is disorientated . Pt seen in armando chair in rec room. RD greeted pt several times, pt asleep with head down close to lap, unable to complete full physical assessment. Pt apepared overall thin, hx weight/fat loss noted with loose skin, arm muscles present. Avg PO intake 58% of meals since adm, meeting 75% lwoer end kcal needs. Current Diet Order/ Nutrition Support Cardiac pureed Pertinent Medications Vitamin B12, Colace, Folate, Novolog, MOM Glucophage, Miralax, Seroquel, Vitamin B1 Pertinent Labs 02/11: glucose 122H POC glucose 92-130 since adm Nutritional Hx/Data Height 5 ft 7 in Height (Calculated Centimeters) 170.2 Current Weight (lbs) 146 lb Weight (Calculated Kilograms) 66.2 Weight (Calculated Grams) 25091.5 [place] Body Weight 148 Weight Status Approriate GI Symptoms Usual diet at home [facility] SNF: cardiac , pureed Skin Integrity/Comment: Jim 16. Skin intact. Current %PO Fair (50-74%) Estimated Nutritional Goals BEE in Kcals: Using Current wt Calories/Kcals/Kg CBW 146lb/66.4kg Kcals Calculated 1660-1992kcal (25-30kcal/kg) Protein: Using Current wt Protein Calculated 66g (1g/kg) Fluid: ml 1660-1992ml (1ml/kcal) Nutritional Problem 1. Problem Problem Inadequate oral food beverage intake related to Etiology unknown, possibly cognition aeb Signs/Symptoms: avg PO intake 58% of meals since adm, meeting 75% lwoer end kcal needs. Intervention/Recommendation Comments 1. Continue with current diet order. No CCHO restriction due to inadequate PO intake, only meeting 75% of lower end kcal needs. 2. Recommend Boost Glucose Control BID. 3. Monitor weight. Pt noted with mild-moderate fat wasting . Expected Outcomes/Goals Expected Outcomes/Goals 1. PO intake to meet 100% of estimated nutritional needs.
--- NOTE | 2017-02-20 23:11 | Progress Notes ---
DATE: 02/20/2017 SUBJECTIVE: Staff was spoken to. The patient is interviewed. The patient is isolative and withdrawn. Coping skills are noted to be still poor. The patient is less irritable today, but continues to be getting into other people's rooms. The patient has no insight into his illness. The patient's sleep and appetite are noted to be improving at this time. ASSESSMENT: The patient is still impulsive. PLAN: To continue the patient with the supportive therapy. I encouraged the patient to verbalize the concerns rather than to act out. JOB# [id number]
[2017-02-21] MEDS: Pantoprazole 40 mg EC Tab PO SCH (06:49)
[2017-02-21] MEDS: INSULIN ASPART SLIDING SCALE 100 UNITS/ML UNIT SUBQ SCH ×4 (06:55→20:29)
[2017-02-21] MEDS ORDERED: Probiotic Screen MC PRN (09:12)
[2017-02-21] MEDS: POLYETHYLENE GLYCOL 3350 17 GM PACK PO SCH (09:20)
[2017-02-21] MEDS: Nicotine 14 mg/24 hr Tdm TD SCH (09:49)
--- NOTE | 2017-02-21 10:25 | Internal Medicine Prog Note ---
Internal Medicine Subjective - Subjective Service Date: 02/21/17 Patient is:: awake, non-verbal, non-interactive Per staff patient has:: no adverse event, poor appetite, tolerating meds Internal Medicine Objective - Results Result Diagrams: 02/11/17 14:31 02/11/17 14:31 Recent Labs: Laboratory Last Values WBC 8.4 Th/cmm (4.8-10.8) 02/11/17 14:31 RBC 4.06 Mil/cmm (3.80-5.80) 02/11/17 14:31 Hgb 12.0 gm/dL (12.6-17.4) L 02/11/17 14:31 Hct 36.1 % (39.0-49.0) L 02/11/17 14:31 MCV 88.7 fl (80-99) 02/11/17 14:31 MCH 29.5 pg (27.0-31.0) 02/11/17 14:31 MCHC Differential 33.3 pg (28.0-36.0) 02/11/17 14:31 RDW 14.1 % (11.5-20.0) 02/11/17 14:31 Plt Count 183 Th/cmm (150-400) 02/11/17 14:31 MPV 8.2 fl 02/11/17 14:31 Neutrophils % 81.1 % (40.0-80.0) H 02/11/17 14:31 Lymphocytes % 12.8 % (20.0-50.0) L 02/11/17 14:31 Monocytes % 3.8 % (2.0-10.0) 02/11/17 14:31 Eosinophils % 1.3 % (0.0-5.0) 02/11/17 14:31 Basophils % 1.0 % (0.0-2.0) 02/11/17 14:31 Sodium 137 mEq/L (136-145) 02/11/17 14:31 Potassium 3.8 mEq/L (3.5-5.1) 02/11/17 14:31 Chloride 105 mEq/L (98-107) 02/11/17 14:31 Carbon Dioxide 30.5 mEq/L (21.0-31.0) 02/11/17 14:31 Anion Gap 5.3 (7.0-16.0) L 02/11/17 14:31 BUN 21 mg/dL (7-25) 02/11/17 14:31 Creatinine 0.6 mg/dL (0.7-1.3) L 02/11/17 14:31 Est GFR ( Amer) > 60.0 ml/min (>90) 02/11/17 14:31 Est GFR (Non-Af Amer) > 60.0 ml/min 02/11/17 14:31 BUN/Creatinine Ratio 35.0 02/11/17 14:31 Glucose 122 mg/dL (70-105) H 02/11/17 14:31 POC Glucose 88 MG/DL (70 - 105) 02/21/17 06:07 Calcium 9.3 mg/dL (8.6-10.3) 02/11/17 14:31 Total Bilirubin 0.2 mg/dL (0.3-1.0) L 02/11/17 14:31 AST 15 U/L (13-39) 02/11/17 14:31 ALT 15 U/L (7-52) 02/11/17 14:31 Alkaline Phosphatase 104 U/L (34-104) 02/11/17 14:31 Troponin I 0.01 ng/mL (0.01-0.05) 02/11/17 14:31 Total Protein 6.9 gm/dL (6.0-8.3) 02/11/17 14:31 Albumin 3.7 gm/dL (4.2-5.5) L 02/11/17 14:31 Globulin 3.2 gm/dL 02/11/17 14:31 Albumin/Globulin Ratio 1.2 (1.0-1.8) 02/11/17 14:31 Triglycerides 119 mg/dL (<150) 02/11/17 14:31 Cholesterol 108 mg/dL (<200) 02/11/17 14:31 LDL Cholesterol Direct 47 mg/dL (75-193) L 02/11/17 14:31 HDL Cholesterol 45 mg/dL (23-92) 02/11/17 14:31 TSH 0.70 uIU/ml (0.34-5.60) 02/11/17 14:31 Urine Source CLEAN C 02/11/17 16:10 Urine Color YELLOW 02/11/17 16:10 Urine Clarity CLOUDY (CLEAR) 02/11/17 16:10 Urine pH 8.0 (4.6 - 8.0) 02/11/17 16:10 Ur Specific [place] 1.020 (1.005-1.030) 02/11/17 16:10 Urine Protein 30 mg/dL (NEGATIVE) H 02/11/17 16:10 Urine Glucose (UA) NEGATIVE mg/dL (NEGATIVE) 02/11/17 16:10 Urine Ketones NEGATIVE mg/dL (NEGATIVE) 02/11/17 16:10 Urine Blood SMALL (NEGATIVE) H 02/11/17 16:10 Urine Nitrate POSITIVE (NEGATIVE) H 02/11/17 16:10 Urine Bilirubin NEGATIVE (NEGATIVE) 02/11/17 16:10 Urine Urobilinogen 0.2 E.U./dL (0.2 - 1.0) 02/11/17 16:10 Ur Leukocyte Esterase LARGE (NEGATIVE) H 02/11/17 16:10 Urine RBC 2-5 /hpf (0-5) H 02/11/17 16:10 Urine WBC 25-50 /hpf (0-5) H 02/11/17 16:10 Ur Epithelial Cells NONE SEEN /lpf (FEW) 02/11/17 16:10 Urine Bacteria MANY /hpf (NONE SEEN) 02/11/17 16:10 Urine Opiates Screen NEGATIVE (NEGATIVE) 02/11/17 16:10 Urine Methadone Screen NEGATIVE (NEGATIVE) 02/11/17 16:10 Ur Barbiturates Screen NEGATIVE (NEGATIVE) 02/11/17 16:10 Valproic Acid < 10.0 ug/mL (50.0-100.0) L 02/11/17 14:31 Ur Tricyclics Screen NEGATIVE (NEGATIVE) 02/11/17 16:10 Ur Phencyclidine Scrn NEGATIVE (NEGATIVE) 02/11/17 16:10 Amphetamines Screen NEGATIVE (NEGATIVE) 02/11/17 16:10 U Methamphetamines Scrn NEGATIVE (NEGATIVE) 02/11/17 16:10 U Benzodiazepines Scrn POSITIVE (NEGATIVE) H 02/11/17 16:10 U Cocaine Metab Screen NEGATIVE (NEGATIVE) 02/11/17 16:10 U Cannabinoids Screen NEGATIVE (NEGATIVE) 02/11/17 16:10 RPR NONREACTIVE (NONREACTIVE) 02/11/17 14:31 - Physical Exam Vitals and I&O: Vital Signs Temp 97.6 F 02/21/17 06:15 Pulse 71 02/21/17 06:15 Resp 20 02/21/17 06:15 BP 119/74 02/21/17 06:15 Pulse Ox 97 02/21/17 06:15 Intake & Output 02/20/17 02/21/17 02/21/17 18:59 06:59 18:59 Intake Total 900 120 Balance 900 120 Intake: Oral 900 120 Other: # Voids 3 3 # Bowel Movements 0 Stool Characteristics Soft Soft Formed Formed Active Medications: Current Medications Acetaminophen (Tylenol) 650 mg PO Q6HR PRN PRN Reason: PAIN OR TEMP >101 Stop: 04/12/17 18:04 Al Hydrox/Mg Hydrox/Simethicone (Maalox) 30 ml PO Q4HR PRN PRN Reason: GI DISTRESS Stop: 04/12/17 18:07 Cyanocobalamin (Vitamin B12) 500 mcg PO DAILY [facility] Stop: 04/15/17 08:59 Last Admin: 02/21/17 09:22 Dose: 500 mcg Divalproex Sodium (Depakote Dr) 125 mg PO Q12H ERIC PRN Reason: Protocol Stop: 04/14/17 20:59 Last Admin: 02/21/17 09:20 Dose: 125 mg Docusate Sodium (Colace) 100 mg PO BID [facility] Stop: 04/13/17 08:59 Last Admin: 02/21/17 09:23 Dose: 100 mg Folic Acid (Folate) 1 mg PO DAILY [facility] Stop: 04/13/17 08:59 Last Admin: 02/21/17 09:22 Dose: 1 mg Insulin Aspart (Novolog Insulin Sliding Scale) 0 units SUBQ ACHS ERIC PRN Reason: Protocol Stop: 04/13/17 07:29 Last Admin: 02/21/17 06:55 Dose: Not Given Lactobacillus Rhamnosus (Culturelle) 1 each PO DAILY [facility] Stop: 04/23/17 08:59 Lorazepam (Ativan) 0.5 mg PO Q4HR PRN; Protocol PRN Reason: Anxiety Stop: 03/13/17 18:07 Last Admin: 02/20/17 20:51 Dose: 0.5 mg Magnesium Hydroxide (Milk Of Magnesia) 30 ml PO HS PRN PRN Reason: Constipation Metformin HCl (Glucophage) 500 mg PO BID [facility] Stop: 04/13/17 08:59 Last Admin: 02/21/17 09:21 Dose: 500 mg Miscellaneous (Probiotic Screen) 1 ea MC PRN PRN PRN Reason: PROTOCOL Stop: 04/22/17 09:11 Nicotine (Nicotine Transdermal System) 14 mg TD DAILY [facility] Stop: 04/13/17 08:59 Last Admin: 02/21/17 09:49 Dose: 14 mg Pantoprazole Sodium (Protonix) 40 mg PO QDAC [facility] Stop: 04/13/17 07:29 Last Admin: 02/21/17 06:49 Dose: 40 mg Polyethylene Glycol (Miralax) 17 gm PO DAILY [facility] Stop: 04/13/17 08:59 Last Admin: 02/21/17 09:20 Dose: 17 gm Quetiapine Fumarate (Seroquel) 25 mg PO HS [facility] Stop: 04/15/17 20:59 Last Admin: 02/20/17 20:51 Dose: 25 mg Thiamine HCl (Vitamin B1) 100 mg PO DAILY [facility] Stop: 04/13/17 08:59 Last Admin: 02/21/17 09:21 Dose: 100 mg Zolpidem Tartrate (Ambien) 5 mg PO HS PRN PRN Reason: Insomnia Stop: 04/12/17 18:07 Last Admin: 02/18/17 20:33 Dose: 5 mg General: demented HEENT: NC/AT, PERRLA Neck: Supple, No JVD Lungs: congested Cardiovascular: RRR, Normal S1, Normal S2, with murmur Abdomen: soft, thin, globular Extremities: excoriation, contracture, deformity Neurological: no change, lethargic Internal Medicine Assmt/Plan - Assessment Assessment: COPD diabetes CAD hypertension gait instability GERD stroke HX CVA schizoaffective disorder anemia low albumin uti - Plan Plan: monitor glucose fall precautions continue current plan of care Nutritional Asmnt/Malnutr-PDOC - Dietary Evaluation Malnutrition Findings (Please click <Entered> for more info): Nutritional Asmnt/Malnutrition Start: 02/15/17 15: 13 Text: Status: Complete Freq: Document 02/15/17 15:13 GSUN (Rec: 02/15/17 15:24 GSUN [email or web address]) Nutritional Asmnt/Malnutrition Patient General Information Nutritional Screening Moderate Risk Screening Diagnosis Psychosis, hx bipolar disorder mixed with psychotic symptoms Pertinent Medical Hx/Surgical Hx COPD, DM, HTN, GERD, stroke, schizoaffective disorder Subjective Information 71 year old male from SNF. Per RN notes, pt is disorientated . Pt seen in armando chair in rec room. RD greeted pt several times, pt asleep with head down close to lap, unable to complete full physical assessment. Pt apepared overall thin, hx weight/fat loss noted with loose skin, arm muscles present. Avg PO intake 58% of meals since adm, meeting 75% lwoer end kcal needs. Current Diet Order/ Nutrition Support Cardiac pureed Pertinent Medications Vitamin B12, Colace, Folate, Novolog, MOM Glucophage, Miralax, Seroquel, Vitamin B1 Pertinent Labs 02/11: glucose 122H POC glucose 92-130 since adm Nutritional Hx/Data Height 5 ft 7 in Height (Calculated Centimeters) 170.2 Current Weight (lbs) 146 lb Weight (Calculated Kilograms) 66.2 Weight (Calculated Grams) 13697.5 [place] Body Weight 148 Weight Status Approriate GI Symptoms Usual diet at home [facility] SNF: cardiac , pureed Skin Integrity/Comment: Jim 16. Skin intact. Current %PO Fair (50-74%) Estimated Nutritional Goals BEE in Kcals: Using Current wt Calories/Kcals/Kg CBW 146lb/66.4kg Kcals Calculated 1660-1992kcal (25-30kcal/kg) Protein: Using Current wt Protein Calculated 66g (1g/kg) Fluid: ml 1660-1992ml (1ml/kcal) Nutritional Problem 1. Problem Problem Inadequate oral food beverage intake related to Etiology unknown, possibly cognition aeb Signs/Symptoms: avg PO intake 58% of meals since adm, meeting 75% lwoer end kcal needs. Intervention/Recommendation Comments 1. Continue with current diet order. No CCHO restriction due to inadequate PO intake, only meeting 75% of lower end kcal needs. 2. Recommend Boost Glucose Control BID. 3. Monitor weight. Pt noted with mild-moderate fat wasting . Expected Outcomes/Goals Expected Outcomes/Goals 1. PO intake to meet 100% of estimated nutritional needs.
[2017-02-22] MEDS: Pantoprazole 40 mg EC Tab PO SCH (06:47)
[2017-02-22] MEDS: Lactobacillus Rhamnosus 10 Billion CFU Capsule PO SCH (11:19)
[2017-02-22] MEDS: POLYETHYLENE GLYCOL 3350 17 GM PACK PO SCH (11:19)
[2017-02-22] MEDS: Nicotine 14 mg/24 hr Tdm TD SCH (11:19)
[2017-02-22] MEDS: INSULIN ASPART SLIDING SCALE 100 UNITS/ML UNIT SUBQ SCH ×3 (12:11→20:10)
--- NOTE | 2017-02-22 13:00 | Internal Medicine Prog Note ---
Internal Medicine Subjective - Subjective Service Date: 02/22/17 Patient is:: awake, non-verbal, non-interactive Per staff patient has:: no adverse event, poor appetite, tolerating meds Internal Medicine Objective - Results Result Diagrams: 02/11/17 14:31 02/11/17 14:31 Recent Labs: Laboratory Last Values WBC 8.4 Th/cmm (4.8-10.8) 02/11/17 14:31 RBC 4.06 Mil/cmm (3.80-5.80) 02/11/17 14:31 Hgb 12.0 gm/dL (12.6-17.4) L 02/11/17 14:31 Hct 36.1 % (39.0-49.0) L 02/11/17 14:31 MCV 88.7 fl (80-99) 02/11/17 14:31 MCH 29.5 pg (27.0-31.0) 02/11/17 14:31 MCHC Differential 33.3 pg (28.0-36.0) 02/11/17 14:31 RDW 14.1 % (11.5-20.0) 02/11/17 14:31 Plt Count 183 Th/cmm (150-400) 02/11/17 14:31 MPV 8.2 fl 02/11/17 14:31 Neutrophils % 81.1 % (40.0-80.0) H 02/11/17 14:31 Lymphocytes % 12.8 % (20.0-50.0) L 02/11/17 14:31 Monocytes % 3.8 % (2.0-10.0) 02/11/17 14:31 Eosinophils % 1.3 % (0.0-5.0) 02/11/17 14:31 Basophils % 1.0 % (0.0-2.0) 02/11/17 14:31 Sodium 137 mEq/L (136-145) 02/11/17 14:31 Potassium 3.8 mEq/L (3.5-5.1) 02/11/17 14:31 Chloride 105 mEq/L (98-107) 02/11/17 14:31 Carbon Dioxide 30.5 mEq/L (21.0-31.0) 02/11/17 14:31 Anion Gap 5.3 (7.0-16.0) L 02/11/17 14:31 BUN 21 mg/dL (7-25) 02/11/17 14:31 Creatinine 0.6 mg/dL (0.7-1.3) L 02/11/17 14:31 Est GFR ( Amer) > 60.0 ml/min (>90) 02/11/17 14:31 Est GFR (Non-Af Amer) > 60.0 ml/min 02/11/17 14:31 BUN/Creatinine Ratio 35.0 02/11/17 14:31 Glucose 122 mg/dL (70-105) H 02/11/17 14:31 POC Glucose 100 MG/DL (70 - 105) 02/22/17 12:00 Calcium 9.3 mg/dL (8.6-10.3) 02/11/17 14:31 Total Bilirubin 0.2 mg/dL (0.3-1.0) L 02/11/17 14:31 AST 15 U/L (13-39) 02/11/17 14:31 ALT 15 U/L (7-52) 02/11/17 14:31 Alkaline Phosphatase 104 U/L (34-104) 02/11/17 14:31 Troponin I 0.01 ng/mL (0.01-0.05) 02/11/17 14:31 Total Protein 6.9 gm/dL (6.0-8.3) 02/11/17 14:31 Albumin 3.7 gm/dL (4.2-5.5) L 02/11/17 14:31 Globulin 3.2 gm/dL 02/11/17 14:31 Albumin/Globulin Ratio 1.2 (1.0-1.8) 02/11/17 14:31 Triglycerides 119 mg/dL (<150) 02/11/17 14:31 Cholesterol 108 mg/dL (<200) 02/11/17 14:31 LDL Cholesterol Direct 47 mg/dL (75-193) L 02/11/17 14:31 HDL Cholesterol 45 mg/dL (23-92) 02/11/17 14:31 TSH 0.70 uIU/ml (0.34-5.60) 02/11/17 14:31 Urine Source CLEAN C 02/11/17 16:10 Urine Color YELLOW 02/11/17 16:10 Urine Clarity CLOUDY (CLEAR) 02/11/17 16:10 Urine pH 8.0 (4.6 - 8.0) 02/11/17 16:10 Ur Specific [place] 1.020 (1.005-1.030) 02/11/17 16:10 Urine Protein 30 mg/dL (NEGATIVE) H 02/11/17 16:10 Urine Glucose (UA) NEGATIVE mg/dL (NEGATIVE) 02/11/17 16:10 Urine Ketones NEGATIVE mg/dL (NEGATIVE) 02/11/17 16:10 Urine Blood SMALL (NEGATIVE) H 02/11/17 16:10 Urine Nitrate POSITIVE (NEGATIVE) H 02/11/17 16:10 Urine Bilirubin NEGATIVE (NEGATIVE) 02/11/17 16:10 Urine Urobilinogen 0.2 E.U./dL (0.2 - 1.0) 02/11/17 16:10 Ur Leukocyte Esterase LARGE (NEGATIVE) H 02/11/17 16:10 Urine RBC 2-5 /hpf (0-5) H 02/11/17 16:10 Urine WBC 25-50 /hpf (0-5) H 02/11/17 16:10 Ur Epithelial Cells NONE SEEN /lpf (FEW) 02/11/17 16:10 Urine Bacteria MANY /hpf (NONE SEEN) 02/11/17 16:10 Urine Opiates Screen NEGATIVE (NEGATIVE) 02/11/17 16:10 Urine Methadone Screen NEGATIVE (NEGATIVE) 02/11/17 16:10 Ur Barbiturates Screen NEGATIVE (NEGATIVE) 02/11/17 16:10 Valproic Acid < 10.0 ug/mL (50.0-100.0) L 02/11/17 14:31 Ur Tricyclics Screen NEGATIVE (NEGATIVE) 02/11/17 16:10 Ur Phencyclidine Scrn NEGATIVE (NEGATIVE) 02/11/17 16:10 Amphetamines Screen NEGATIVE (NEGATIVE) 02/11/17 16:10 U Methamphetamines Scrn NEGATIVE (NEGATIVE) 02/11/17 16:10 U Benzodiazepines Scrn POSITIVE (NEGATIVE) H 02/11/17 16:10 U Cocaine Metab Screen NEGATIVE (NEGATIVE) 02/11/17 16:10 U Cannabinoids Screen NEGATIVE (NEGATIVE) 02/11/17 16:10 RPR NONREACTIVE (NONREACTIVE) 02/11/17 14:31 - Physical Exam Vitals and I&O: Vital Signs Temp 98.4 F 02/21/17 20:00 Pulse 82 02/21/17 20:00 Resp 18 02/21/17 20:00 BP 150/80 02/21/17 20:00 Pulse Ox 96 02/21/17 20:00 Intake & Output 02/21/17 02/22/17 02/22/17 18:59 06:59 18:59 Intake Total 1200 120 Balance 1200 120 Intake: Oral 1200 120 Other: # Voids 3 # Bowel Movements 1 Active Medications: Current Medications Acetaminophen (Tylenol) 650 mg PO Q6HR PRN PRN Reason: PAIN OR TEMP >101 Stop: 04/12/17 18:04 Al Hydrox/Mg Hydrox/Simethicone (Maalox) 30 ml PO Q4HR PRN PRN Reason: GI DISTRESS Stop: 04/12/17 18:07 Cyanocobalamin (Vitamin B12) 500 mcg PO DAILY [facility] Stop: 04/15/17 08:59 Last Admin: 02/22/17 11:18 Dose: Not Given Divalproex Sodium (Depakote Dr) 125 mg PO Q12H ERCI PRN Reason: Protocol Stop: 04/14/17 20:59 Last Admin: 02/22/17 11:18 Dose: Not Given Docusate Sodium (Colace) 100 mg PO BID ERIC Stop: 04/13/17 08:59 Last Admin: 02/22/17 11:18 Dose: Not Given Folic Acid (Folate) 1 mg PO DAILY ERIC Stop: 04/13/17 08:59 Last Admin: 02/22/17 11:18 Dose: Not Given Insulin Aspart (Novolog Insulin Sliding Scale) 0 units SUBQ ACHS ERIC PRN Reason: Protocol Stop: 04/13/17 07:29 Last Admin: 02/22/17 12:11 Dose: Not Given Lactobacillus Rhamnosus (Culturelle) 1 each PO DAILY ERIC Stop: 04/23/17 08:59 Last Admin: 02/22/17 11:19 Dose: Not Given Lorazepam (Ativan) 0.5 mg PO Q4HR PRN; Protocol PRN Reason: Anxiety Stop: 03/13/17 18:07 Last Admin: 02/21/17 20:28 Dose: 0.5 mg Magnesium Hydroxide (Milk Of Magnesia) 30 ml PO HS PRN PRN Reason: Constipation Metformin HCl (Glucophage) 500 mg PO BID [facility] Stop: 04/13/17 08:59 Last Admin: 02/22/17 11:19 Dose: Not Given Miscellaneous (Probiotic Screen) 1 ea MC PRN PRN PRN Reason: PROTOCOL Stop: 04/22/17 09:11 Nicotine (Nicotine Transdermal System) 14 mg TD DAILY ERIC Stop: 04/13/17 08:59 Last Admin: 02/22/17 11:19 Dose: Not Given Pantoprazole Sodium (Protonix) 40 mg PO QDAC ERIC Stop: 04/13/17 07:29 Last Admin: 02/22/17 06:47 Dose: 40 mg Polyethylene Glycol (Miralax) 17 gm PO DAILY ERIC Stop: 04/13/17 08:59 Last Admin: 02/22/17 11:19 Dose: Not Given Quetiapine Fumarate (Seroquel) 25 mg PO BID ERIC Stop: 04/23/17 08:59 Last Admin: 02/22/17 11:19 Dose: Not Given Thiamine HCl (Vitamin B1) 100 mg PO DAILY ERIC Stop: 04/13/17 08:59 Last Admin: 02/22/17 11:19 Dose: Not Given Zolpidem Tartrate (Ambien) 5 mg PO HS PRN PRN Reason: Insomnia Stop: 04/12/17 18:07 Last Admin: 02/18/17 20:33 Dose: 5 mg General: demented HEENT: NC/AT, PERRLA Neck: Supple, No JVD Lungs: congested Cardiovascular: RRR, Normal S1, Normal S2, with murmur Abdomen: soft, thin, globular Extremities: excoriation, contracture, deformity Neurological: no change, lethargic Internal Medicine Assmt/Plan - Assessment Assessment: COPD diabetes CAD hypertension gait instability GERD stroke HX CVA schizoaffective disorder anemia low albumin uti - Plan Plan: monitor glucose fall precautions continue current plan of care Nutritional Asmnt/Malnutr-PDOC - Dietary Evaluation Malnutrition Findings (Please click <Entered> for more info): Nutritional Asmnt/Malnutrition Start: 02/15/17 15: 13 Text: Status: Complete Freq: Document 02/15/17 15:13 GSUN (Rec: 02/15/17 15:24 [email or web address] [id number]) Nutritional Asmnt/Malnutrition Patient General Information Nutritional Screening Moderate Risk Screening Diagnosis Psychosis, hx bipolar disorder mixed with psychotic symptoms Pertinent Medical Hx/Surgical Hx COPD, DM, HTN, GERD, stroke, schizoaffective disorder Subjective Information 71 year old male from SNF. Per RN notes, pt is disorientated . Pt seen in armando chair in rec room. RD greeted pt several times, pt asleep with head down close to lap, unable to complete full physical assessment. Pt apepared overall thin, hx weight/fat loss noted with loose skin, arm muscles present. Avg PO intake 58% of meals since adm, meeting 75% lwoer end kcal needs. Current Diet Order/ Nutrition Support Cardiac pureed Pertinent Medications Vitamin B12, Colace, Folate, Novolog, MOM Glucophage, Miralax, Seroquel, Vitamin B1 Pertinent Labs 02/11: glucose 122H POC glucose 92-130 since adm Nutritional Hx/Data Height 5 ft 7 in Height (Calculated Centimeters) 170.2 Current Weight (lbs) 146 lb Weight (Calculated Kilograms) 66.2 Weight (Calculated Grams) 06541.5 [place] Body Weight 148 Weight Status Approriate GI Symptoms Usual diet at home [facility] SNF: cardiac , pureed Skin Integrity/Comment: Jim 16. Skin intact. Current %PO Fair (50-74%) Estimated Nutritional Goals BEE in Kcals: Using Current wt Calories/Kcals/Kg CBW 146lb/66.4kg Kcals Calculated 1660-1992kcal (25-30kcal/kg) Protein: Using Current wt Protein Calculated 66g (1g/kg) Fluid: ml 1660-1992ml (1ml/kcal) Nutritional Problem 1. Problem Problem Inadequate oral food beverage intake related to Etiology unknown, possibly cognition aeb Signs/Symptoms: avg PO intake 58% of meals since adm, meeting 75% lwoer end kcal needs. Intervention/Recommendation Comments 1. Continue with current diet order. No CCHO restriction due to inadequate PO intake, only meeting 75% of lower end kcal needs. 2. Recommend Boost Glucose Control BID. 3. Monitor weight. Pt noted with mild-moderate fat wasting . Expected Outcomes/Goals Expected Outcomes/Goals 1. PO intake to meet 100% of estimated nutritional needs.
--- NOTE | 2017-02-22 16:14 | Progress Notes ---
DATE: 02/21/2017 PSYCHIATRIC PROGRESS NOTE SUBJECTIVE: Staff was spoken to. The patient is interviewed. Mood is noted to be irritable. Affect is constricted. The patient is still psychotic and has been trying to reach for things that are not there. The patient also has been trying to grab at the staff. The patient's insight and judgment at this time are noted to be very much impaired. Impulse control seems to be poor. Coping skills are noted to be very poor. The patient is still psychotic. ASSESSMENT: The patient is still impulsive and not able to contract for safety. PLAN: To increase the dose on the Seroquel to 25 mg twice a day and continue the Depakote 125 mg and follow the patient with supportive therapy noted. Please note, the patient is not ready to be discharged to a lower level of care yet. JOB# [id number]
[2017-02-23] MEDS: INSULIN ASPART SLIDING SCALE 100 UNITS/ML UNIT SUBQ SCH ×4 (06:31→21:23)
[2017-02-23] MEDS: Pantoprazole 40 mg EC Tab PO SCH (06:36)
[2017-02-23] MEDS: POLYETHYLENE GLYCOL 3350 17 GM PACK PO SCH (12:00)
[2017-02-23] MEDS: Lactobacillus Rhamnosus 10 Billion CFU Capsule PO SCH (12:00)
[2017-02-23] MEDS: Nicotine 14 mg/24 hr Tdm TD SCH (12:37)
--- NOTE | 2017-02-23 14:57 | Internal Medicine Prog Note ---
Internal Medicine Subjective - Subjective Patient seen and examined:: with staff, chart reviewed Patient is:: awake, non-verbal, non-interactive Per staff patient has:: no adverse event, poor appetite, tolerating meds Internal Medicine Objective - Results Result Diagrams: 02/11/17 14:31 02/11/17 14:31 Recent Labs: Laboratory Last Values WBC 8.4 Th/cmm (4.8-10.8) 02/11/17 14:31 RBC 4.06 Mil/cmm (3.80-5.80) 02/11/17 14:31 Hgb 12.0 gm/dL (12.6-17.4) L 02/11/17 14:31 Hct 36.1 % (39.0-49.0) L 02/11/17 14:31 MCV 88.7 fl (80-99) 02/11/17 14:31 MCH 29.5 pg (27.0-31.0) 02/11/17 14:31 MCHC Differential 33.3 pg (28.0-36.0) 02/11/17 14:31 RDW 14.1 % (11.5-20.0) 02/11/17 14:31 Plt Count 183 Th/cmm (150-400) 02/11/17 14:31 MPV 8.2 fl 02/11/17 14:31 Neutrophils % 81.1 % (40.0-80.0) H 02/11/17 14:31 Lymphocytes % 12.8 % (20.0-50.0) L 02/11/17 14:31 Monocytes % 3.8 % (2.0-10.0) 02/11/17 14:31 Eosinophils % 1.3 % (0.0-5.0) 02/11/17 14:31 Basophils % 1.0 % (0.0-2.0) 02/11/17 14:31 Sodium 137 mEq/L (136-145) 02/11/17 14:31 Potassium 3.8 mEq/L (3.5-5.1) 02/11/17 14:31 Chloride 105 mEq/L (98-107) 02/11/17 14:31 Carbon Dioxide 30.5 mEq/L (21.0-31.0) 02/11/17 14:31 Anion Gap 5.3 (7.0-16.0) L 02/11/17 14:31 BUN 21 mg/dL (7-25) 02/11/17 14:31 Creatinine 0.6 mg/dL (0.7-1.3) L 02/11/17 14:31 Est GFR ( Amer) > 60.0 ml/min (>90) 02/11/17 14:31 Est GFR (Non-Af Amer) > 60.0 ml/min 02/11/17 14:31 BUN/Creatinine Ratio 35.0 02/11/17 14:31 Glucose 122 mg/dL (70-105) H 02/11/17 14:31 POC Glucose 96 MG/DL (70 - 105) 02/23/17 12:12 Calcium 9.3 mg/dL (8.6-10.3) 02/11/17 14:31 Total Bilirubin 0.2 mg/dL (0.3-1.0) L 02/11/17 14:31 AST 15 U/L (13-39) 02/11/17 14:31 ALT 15 U/L (7-52) 02/11/17 14:31 Alkaline Phosphatase 104 U/L (34-104) 02/11/17 14:31 Troponin I 0.01 ng/mL (0.01-0.05) 02/11/17 14:31 Total Protein 6.9 gm/dL (6.0-8.3) 02/11/17 14:31 Albumin 3.7 gm/dL (4.2-5.5) L 02/11/17 14:31 Globulin 3.2 gm/dL 02/11/17 14:31 Albumin/Globulin Ratio 1.2 (1.0-1.8) 02/11/17 14:31 Triglycerides 119 mg/dL (<150) 02/11/17 14:31 Cholesterol 108 mg/dL (<200) 02/11/17 14:31 LDL Cholesterol Direct 47 mg/dL (75-193) L 02/11/17 14:31 HDL Cholesterol 45 mg/dL (23-92) 02/11/17 14:31 TSH 0.70 uIU/ml (0.34-5.60) 02/11/17 14:31 Urine Source CLEAN C 02/11/17 16:10 Urine Color YELLOW 02/11/17 16:10 Urine Clarity CLOUDY (CLEAR) 02/11/17 16:10 Urine pH 8.0 (4.6 - 8.0) 02/11/17 16:10 Ur Specific [place] 1.020 (1.005-1.030) 02/11/17 16:10 Urine Protein 30 mg/dL (NEGATIVE) H 02/11/17 16:10 Urine Glucose (UA) NEGATIVE mg/dL (NEGATIVE) 02/11/17 16:10 Urine Ketones NEGATIVE mg/dL (NEGATIVE) 02/11/17 16:10 Urine Blood SMALL (NEGATIVE) H 02/11/17 16:10 Urine Nitrate POSITIVE (NEGATIVE) H 02/11/17 16:10 Urine Bilirubin NEGATIVE (NEGATIVE) 02/11/17 16:10 Urine Urobilinogen 0.2 E.U./dL (0.2 - 1.0) 02/11/17 16:10 Ur Leukocyte Esterase LARGE (NEGATIVE) H 02/11/17 16:10 Urine RBC 2-5 /hpf (0-5) H 02/11/17 16:10 Urine WBC 25-50 /hpf (0-5) H 02/11/17 16:10 Ur Epithelial Cells NONE SEEN /lpf (FEW) 02/11/17 16:10 Urine Bacteria MANY /hpf (NONE SEEN) 02/11/17 16:10 Urine Opiates Screen NEGATIVE (NEGATIVE) 02/11/17 16:10 Urine Methadone Screen NEGATIVE (NEGATIVE) 02/11/17 16:10 Ur Barbiturates Screen NEGATIVE (NEGATIVE) 02/11/17 16:10 Valproic Acid < 10.0 ug/mL (50.0-100.0) L 02/11/17 14:31 Ur Tricyclics Screen NEGATIVE (NEGATIVE) 02/11/17 16:10 Ur Phencyclidine Scrn NEGATIVE (NEGATIVE) 02/11/17 16:10 Amphetamines Screen NEGATIVE (NEGATIVE) 02/11/17 16:10 U Methamphetamines Scrn NEGATIVE (NEGATIVE) 02/11/17 16:10 U Benzodiazepines Scrn POSITIVE (NEGATIVE) H 02/11/17 16:10 U Cocaine Metab Screen NEGATIVE (NEGATIVE) 02/11/17 16:10 U Cannabinoids Screen NEGATIVE (NEGATIVE) 02/11/17 16:10 RPR NONREACTIVE (NONREACTIVE) 02/11/17 14:31 - Physical Exam Vitals and I&O: Vital Signs Temp 0 F 02/23/17 07:07 Pulse 74 02/23/17 13:27 Resp 18 02/23/17 13:27 BP 114/54 02/22/17 20:07 Pulse Ox 97 02/22/17 20:07 Intake & Output 02/22/17 02/23/17 02/23/17 18:59 06:59 18:59 Intake Total 850 240 Balance 850 240 Weight (lbs) 66.224 kg Intake: Oral 850 240 Other: # Voids 4 1 3 # Bowel Movements 1 0 Stool Characteristics Soft Soft Formed Formed Active Medications: Current Medications Acetaminophen (Tylenol) 650 mg PO Q6HR PRN PRN Reason: PAIN OR TEMP >101 Stop: 04/12/17 18:04 Al Hydrox/Mg Hydrox/Simethicone (Maalox) 30 ml PO Q4HR PRN PRN Reason: GI DISTRESS Stop: 04/12/17 18:07 Cyanocobalamin (Vitamin B12) 500 mcg PO DAILY [facility] Stop: 04/15/17 08:59 Last Admin: 02/23/17 11:59 Dose: Not Given Divalproex Sodium (Depakote Dr) 250 mg PO Q12H ERIC PRN Reason: Protocol Stop: 04/24/17 11:52 Last Admin: 02/23/17 12:37 Dose: 250 mg Docusate Sodium (Colace) 100 mg PO BID ERIC Stop: 04/13/17 08:59 Last Admin: 02/23/17 11:59 Dose: Not Given Folic Acid (Folate) 1 mg PO DAILY [facility] Stop: 04/13/17 08:59 Last Admin: 02/23/17 12:00 Dose: Not Given Insulin Aspart (Novolog Insulin Sliding Scale) 0 units SUBQ ACHS ERIC PRN Reason: Protocol Stop: 04/13/17 07:29 Last Admin: 02/23/17 12:37 Dose: Not Given Lactobacillus Rhamnosus (Culturelle) 1 each PO DAILY [facility] Stop: 04/23/17 08:59 Last Admin: 02/23/17 12:00 Dose: Not Given Lorazepam (Ativan) 0.5 mg PO Q4HR PRN; Protocol PRN Reason: Anxiety Stop: 03/13/17 18:07 Last Admin: 02/23/17 12:37 Dose: 0.5 mg Magnesium Hydroxide (Milk Of Magnesia) 30 ml PO HS PRN PRN Reason: Constipation Metformin HCl (Glucophage) 500 mg PO BID [facility] Stop: 04/13/17 08:59 Last Admin: 02/23/17 12:00 Dose: Not Given Miscellaneous (Probiotic Screen) 1 ea MC PRN PRN PRN Reason: PROTOCOL Stop: 04/22/17 09:11 Nicotine (Nicotine Transdermal System) 14 mg TD DAILY ERIC Stop: 04/13/17 08:59 Last Admin: 02/23/17 12:37 Dose: 14 mg Pantoprazole Sodium (Protonix) 40 mg PO QDAC ERIC Stop: 04/13/17 07:29 Last Admin: 02/23/17 06:36 Dose: 40 mg Polyethylene Glycol (Miralax) 17 gm PO DAILY ERIC Stop: 04/13/17 08:59 Last Admin: 02/23/17 12:00 Dose: Not Given Quetiapine Fumarate (Seroquel) 25 mg PO BID ERIC Stop: 04/23/17 08:59 Last Admin: 02/23/17 12:00 Dose: Not Given Thiamine HCl (Vitamin B1) 100 mg PO DAILY ERIC Stop: 04/13/17 08:59 Last Admin: 02/23/17 12:00 Dose: Not Given Zolpidem Tartrate (Ambien) 5 mg PO HS PRN PRN Reason: Insomnia Stop: 04/12/17 18:07 Last Admin: 02/18/17 20:33 Dose: 5 mg General: demented HEENT: NC/AT, PERRLA Neck: Supple, No JVD Lungs: congested Cardiovascular: RRR, Normal S1, Normal S2, with murmur Abdomen: soft, thin, globular Extremities: excoriation, contracture, deformity Neurological: no change, lethargic Internal Medicine Assmt/Plan - Assessment Assessment: COPD, diabetes, CAD, hypertension, gait instability, GERD, stroke, CVA, schizoaffective disorder, anemia, low albumin.uti - Plan Plan: We will continue the patient on po antibiotic and continue on oxygen and bronchodilator treatment. Continue ADA diet and insulin sliding scale. Continue with current care. We will place the patient on fall precaution. We will continue to monitor the patient closely. Nutritional Asmnt/Malnutr-PDOC - Dietary Evaluation Malnutrition Findings (Please click <Entered> for more info): Nutritional Asmnt/Malnutrition Start: 02/15/17 15: 13 Text: Status: Complete Freq: Document 02/15/17 15:13 GSUN (Rec: 02/15/17 15:24 GSUN [id number]) Nutritional Asmnt/Malnutrition Patient General Information Nutritional Screening Moderate Risk Screening Diagnosis Psychosis, hx bipolar disorder mixed with psychotic symptoms Pertinent Medical Hx/Surgical Hx COPD, DM, HTN, GERD, stroke, schizoaffective disorder Subjective Information 71 year old male from SNF. Per RN notes, pt is disorientated . Pt seen in armando chair in rec room. RD greeted pt several times, pt asleep with head down close to lap, unable to complete full physical assessment. Pt apepared overall thin, hx weight/fat loss noted with loose skin, arm muscles present. Avg PO intake 58% of meals since adm, meeting 75% lwoer end kcal needs. Current Diet Order/ Nutrition Support Cardiac pureed Pertinent Medications Vitamin B12, Colace, Folate, Novolog, MOM Glucophage, Miralax, Seroquel, Vitamin B1 Pertinent Labs 02/11: glucose 122H POC glucose 92-130 since adm Nutritional Hx/Data Height 1.7 m Height (Calculated Centimeters) 170.2 Current Weight (lbs) 66.224 kg Weight (Calculated Kilograms) 66.2 Weight (Calculated Grams) 93691.5 [place] Body Weight 148 Weight Status Approriate GI Symptoms Usual diet at home [facility] SNF: cardiac , pureed Skin Integrity/Comment: Jim 16. Skin intact. Current %PO Fair (50-74%) Estimated Nutritional Goals BEE in Kcals: Using Current wt Calories/Kcals/Kg CBW 146lb/66.4kg Kcals Calculated 1660-1992kcal (25-30kcal/kg) Protein: Using Current wt Protein Calculated 66g (1g/kg) Fluid: ml 1660-1992ml (1ml/kcal) Nutritional Problem 1. Problem Problem Inadequate oral food beverage intake related to Etiology unknown, possibly cognition aeb Signs/Symptoms: avg PO intake 58% of meals since adm, meeting 75% lwoer end kcal needs. Intervention/Recommendation Comments 1. Continue with current diet order. No CCHO restriction due to inadequate PO intake, only meeting 75% of lower end kcal needs. 2. Recommend Boost Glucose Control BID. 3. Monitor weight. Pt noted with mild-moderate fat wasting . Expected Outcomes/Goals Expected Outcomes/Goals 1. PO intake to meet 100% of estimated nutritional needs.
--- NOTE | 2017-02-24 02:45 | Progress Notes ---
DATE: 02/22/2017 PSYCHIATRIC PROGRESS NOTE SUBJECTIVE: Staff was spoken to. The patient is interviewed. Mood is noted to be less irritable. Affect is appropriate, but the patient is still responding to the internal stimuli. I have increased the dose on the Seroquel to 25 mg twice a day. The patient has been able to tolerate the medications. No side effects to the medications are noted at this time. ASSESSMENT: The patient is still psychotic and impulsive. PLAN: To continue the patient with the supportive therapy. I encouraged the patient to verbalize the concerns rather than to act out. JOB# [id number]
[2017-02-24] MEDS: Pantoprazole 40 mg EC Tab PO SCH (06:32)
[2017-02-24] MEDS: Lactobacillus Rhamnosus 10 Billion CFU Capsule PO SCH (10:10)
[2017-02-24] MEDS: Nicotine 14 mg/24 hr Tdm TD SCH (10:10)
[2017-02-24] MEDS: POLYETHYLENE GLYCOL 3350 17 GM PACK PO SCH (10:10)
[2017-02-24] MEDS: INSULIN ASPART SLIDING SCALE 100 UNITS/ML UNIT SUBQ SCH ×3 (12:01→20:52)
--- NOTE | 2017-02-24 14:01 | Internal Medicine Prog Note ---
Internal Medicine Subjective - Subjective Patient seen and examined:: with staff, chart reviewed Patient is:: awake, non-verbal, non-interactive Per staff patient has:: no adverse event, poor appetite, tolerating meds Internal Medicine Objective - Results Result Diagrams: 02/11/17 14:31 02/11/17 14:31 Recent Labs: Laboratory Last Values WBC 8.4 Th/cmm (4.8-10.8) 02/11/17 14:31 RBC 4.06 Mil/cmm (3.80-5.80) 02/11/17 14:31 Hgb 12.0 gm/dL (12.6-17.4) L 02/11/17 14:31 Hct 36.1 % (39.0-49.0) L 02/11/17 14:31 MCV 88.7 fl (80-99) 02/11/17 14:31 MCH 29.5 pg (27.0-31.0) 02/11/17 14:31 MCHC Differential 33.3 pg (28.0-36.0) 02/11/17 14:31 RDW 14.1 % (11.5-20.0) 02/11/17 14:31 Plt Count 183 Th/cmm (150-400) 02/11/17 14:31 MPV 8.2 fl 02/11/17 14:31 Neutrophils % 81.1 % (40.0-80.0) H 02/11/17 14:31 Lymphocytes % 12.8 % (20.0-50.0) L 02/11/17 14:31 Monocytes % 3.8 % (2.0-10.0) 02/11/17 14:31 Eosinophils % 1.3 % (0.0-5.0) 02/11/17 14:31 Basophils % 1.0 % (0.0-2.0) 02/11/17 14:31 Sodium 137 mEq/L (136-145) 02/11/17 14:31 Potassium 3.8 mEq/L (3.5-5.1) 02/11/17 14:31 Chloride 105 mEq/L (98-107) 02/11/17 14:31 Carbon Dioxide 30.5 mEq/L (21.0-31.0) 02/11/17 14:31 Anion Gap 5.3 (7.0-16.0) L 02/11/17 14:31 BUN 21 mg/dL (7-25) 02/11/17 14:31 Creatinine 0.6 mg/dL (0.7-1.3) L 02/11/17 14:31 Est GFR ( Amer) > 60.0 ml/min (>90) 02/11/17 14:31 Est GFR (Non-Af Amer) > 60.0 ml/min 02/11/17 14:31 BUN/Creatinine Ratio 35.0 02/11/17 14:31 Glucose 122 mg/dL (70-105) H 02/11/17 14:31 POC Glucose 101 MG/DL (70 - 105) 02/24/17 11:35 Calcium 9.3 mg/dL (8.6-10.3) 02/11/17 14:31 Total Bilirubin 0.2 mg/dL (0.3-1.0) L 02/11/17 14:31 AST 15 U/L (13-39) 02/11/17 14:31 ALT 15 U/L (7-52) 02/11/17 14:31 Alkaline Phosphatase 104 U/L (34-104) 02/11/17 14:31 Troponin I 0.01 ng/mL (0.01-0.05) 02/11/17 14:31 Total Protein 6.9 gm/dL (6.0-8.3) 02/11/17 14:31 Albumin 3.7 gm/dL (4.2-5.5) L 02/11/17 14:31 Globulin 3.2 gm/dL 02/11/17 14:31 Albumin/Globulin Ratio 1.2 (1.0-1.8) 02/11/17 14:31 Triglycerides 119 mg/dL (<150) 02/11/17 14:31 Cholesterol 108 mg/dL (<200) 02/11/17 14:31 LDL Cholesterol Direct 47 mg/dL (75-193) L 02/11/17 14:31 HDL Cholesterol 45 mg/dL (23-92) 02/11/17 14:31 TSH 0.70 uIU/ml (0.34-5.60) 02/11/17 14:31 Urine Source CLEAN C 02/11/17 16:10 Urine Color YELLOW 02/11/17 16:10 Urine Clarity CLOUDY (CLEAR) 02/11/17 16:10 Urine pH 8.0 (4.6 - 8.0) 02/11/17 16:10 Ur Specific [place] 1.020 (1.005-1.030) 02/11/17 16:10 Urine Protein 30 mg/dL (NEGATIVE) H 02/11/17 16:10 Urine Glucose (UA) NEGATIVE mg/dL (NEGATIVE) 02/11/17 16:10 Urine Ketones NEGATIVE mg/dL (NEGATIVE) 02/11/17 16:10 Urine Blood SMALL (NEGATIVE) H 02/11/17 16:10 Urine Nitrate POSITIVE (NEGATIVE) H 02/11/17 16:10 Urine Bilirubin NEGATIVE (NEGATIVE) 02/11/17 16:10 Urine Urobilinogen 0.2 E.U./dL (0.2 - 1.0) 02/11/17 16:10 Ur Leukocyte Esterase LARGE (NEGATIVE) H 02/11/17 16:10 Urine RBC 2-5 /hpf (0-5) H 02/11/17 16:10 Urine WBC 25-50 /hpf (0-5) H 02/11/17 16:10 Ur Epithelial Cells NONE SEEN /lpf (FEW) 02/11/17 16:10 Urine Bacteria MANY /hpf (NONE SEEN) 02/11/17 16:10 Urine Opiates Screen NEGATIVE (NEGATIVE) 02/11/17 16:10 Urine Methadone Screen NEGATIVE (NEGATIVE) 02/11/17 16:10 Ur Barbiturates Screen NEGATIVE (NEGATIVE) 02/11/17 16:10 Valproic Acid < 10.0 ug/mL (50.0-100.0) L 02/11/17 14:31 Ur Tricyclics Screen NEGATIVE (NEGATIVE) 02/11/17 16:10 Ur Phencyclidine Scrn NEGATIVE (NEGATIVE) 02/11/17 16:10 Amphetamines Screen NEGATIVE (NEGATIVE) 02/11/17 16:10 U Methamphetamines Scrn NEGATIVE (NEGATIVE) 02/11/17 16:10 U Benzodiazepines Scrn POSITIVE (NEGATIVE) H 02/11/17 16:10 U Cocaine Metab Screen NEGATIVE (NEGATIVE) 02/11/17 16:10 U Cannabinoids Screen NEGATIVE (NEGATIVE) 02/11/17 16:10 RPR NONREACTIVE (NONREACTIVE) 02/11/17 14:31 - Physical Exam Vitals and I&O: Vital Signs Temp 97.5 F 02/23/17 22:22 Pulse 72 02/23/17 22:22 Resp 16 02/23/17 22:22 BP 82/53 02/23/17 22:22 Pulse Ox 95 02/23/17 22:22 Intake & Output 02/23/17 02/24/17 02/24/17 18:59 06:59 18:59 Intake Total 800 120 Balance 800 120 Weight (lbs) 66.224 kg Intake: Oral 800 120 Other: # Voids 2 3 # Bowel Movements 1 Stool Characteristics Soft Formed Active Medications: Current Medications Acetaminophen (Tylenol) 650 mg PO Q6HR PRN PRN Reason: PAIN OR TEMP >101 Stop: 04/12/17 18:04 Al Hydrox/Mg Hydrox/Simethicone (Maalox) 30 ml PO Q4HR PRN PRN Reason: GI DISTRESS Stop: 04/12/17 18:07 Cyanocobalamin (Vitamin B12) 500 mcg PO DAILY ERIC Stop: 04/15/17 08:59 Last Admin: 02/24/17 10:09 Dose: Not Given Divalproex Sodium (Depakote Dr) 250 mg PO HS ERIC PRN Reason: Protocol Stop: 04/25/17 20:59 Docusate Sodium (Colace) 100 mg PO BID ERIC Stop: 04/13/17 08:59 Last Admin: 02/24/17 10:10 Dose: Not Given Folic Acid (Folate) 1 mg PO DAILY ERIC Stop: 04/13/17 08:59 Last Admin: 02/24/17 10:10 Dose: Not Given Insulin Aspart (Novolog Insulin Sliding Scale) 0 units SUBQ ACHS ERIC PRN Reason: Protocol Stop: 04/13/17 07:29 Last Admin: 02/24/17 12:01 Dose: Not Given Lactobacillus Rhamnosus (Culturelle) 1 each PO DAILY ERIC Stop: 04/23/17 08:59 Last Admin: 02/24/17 10:10 Dose: Not Given Lorazepam (Ativan) 0.5 mg PO Q4HR PRN; Protocol PRN Reason: Anxiety Stop: 03/13/17 18:07 Last Admin: 02/23/17 12:37 Dose: 0.5 mg Magnesium Hydroxide (Milk Of Magnesia) 30 ml PO HS PRN PRN Reason: Constipation Metformin HCl (Glucophage) 500 mg PO BID ERIC Stop: 04/13/17 08:59 Last Admin: 02/24/17 10:10 Dose: Not Given Miscellaneous (Probiotic Screen) 1 ea MC PRN PRN PRN Reason: PROTOCOL Stop: 04/22/17 09:11 Nicotine (Nicotine Transdermal System) 14 mg TD DAILY ERIC Stop: 04/13/17 08:59 Last Admin: 02/24/17 10:10 Dose: Not Given Pantoprazole Sodium (Protonix) 40 mg PO QDAC ERIC Stop: 04/13/17 07:29 Last Admin: 02/24/17 06:32 Dose: 40 mg Polyethylene Glycol (Miralax) 17 gm PO DAILY ERIC Stop: 04/13/17 08:59 Last Admin: 02/24/17 10:10 Dose: Not Given Quetiapine Fumarate (Seroquel) 25 mg PO HS ERIC PRN Reason: Protocol Stop: 04/25/17 20:59 Thiamine HCl (Vitamin B1) 100 mg PO DAILY ERIC Stop: 04/13/17 08:59 Last Admin: 02/24/17 10:10 Dose: Not Given Zolpidem Tartrate (Ambien) 5 mg PO HS PRN PRN Reason: Insomnia Stop: 04/12/17 18:07 Last Admin: 02/18/17 20:33 Dose: 5 mg General: demented HEENT: NC/AT, PERRLA Neck: Supple, No JVD Lungs: congested Cardiovascular: RRR, Normal S1, Normal S2, with murmur Abdomen: soft, thin, globular Extremities: excoriation, contracture, deformity Neurological: no change, lethargic Internal Medicine Assmt/Plan - Assessment Assessment: COPD, diabetes, CAD, hypertension, gait instability, GERD, stroke, CVA, schizoaffective disorder, anemia, low albumin.uti - Plan Plan: We will continue the patient on po antibiotic and continue on oxygen and bronchodilator treatment. Continue ADA diet and insulin sliding scale. Continue with current care. We will place the patient on fall precaution. We will continue to monitor the patient closely. Nutritional Asmnt/Malnutr-PDOC - Dietary Evaluation Malnutrition Findings (Please click <Entered> for more info): Nutritional Asmnt/Malnutrition Start: 02/15/17 15: 13 Text: Status: Complete Freq: Document 02/15/17 15:13 GSUN (Rec: 02/15/17 15:24 GSUN [id number]) Nutritional Asmnt/Malnutrition Patient General Information Nutritional Screening Moderate Risk Screening Diagnosis Psychosis, hx bipolar disorder mixed with psychotic symptoms Pertinent Medical Hx/Surgical Hx COPD, DM, HTN, GERD, stroke, schizoaffective disorder Subjective Information 71 year old male from SNF. Per RN notes, pt is disorientated . Pt seen in armando chair in rec room. RD greeted pt several times, pt asleep with head down close to lap, unable to complete full physical assessment. Pt apepared overall thin, hx weight/fat loss noted with loose skin, arm muscles present. Avg PO intake 58% of meals since adm, meeting 75% lwoer end kcal needs. Current Diet Order/ Nutrition Support Cardiac pureed Pertinent Medications Vitamin B12, Colace, Folate, Novolog, MOM Glucophage, Miralax, Seroquel, Vitamin B1 Pertinent Labs 02/11: glucose 122H POC glucose 92-130 since adm Nutritional Hx/Data Height 1.7 m Height (Calculated Centimeters) 170.2 Current Weight (lbs) 66.224 kg Weight (Calculated Kilograms) 66.2 Weight (Calculated Grams) 49998.5 [place] Body Weight 148 Weight Status Approriate GI Symptoms Usual diet at home [facility] SNF: cardiac , pureed Skin Integrity/Comment: Jim 16. Skin intact. Current %PO Fair (50-74%) Estimated Nutritional Goals BEE in Kcals: Using Current wt Calories/Kcals/Kg CBW 146lb/66.4kg Kcals Calculated 1660-1992kcal (25-30kcal/kg) Protein: Using Current wt Protein Calculated 66g (1g/kg) Fluid: ml 1660-1992ml (1ml/kcal) Nutritional Problem 1. Problem Problem Inadequate oral food beverage intake related to Etiology unknown, possibly cognition aeb Signs/Symptoms: avg PO intake 58% of meals since adm, meeting 75% lwoer end kcal needs. Intervention/Recommendation Comments 1. Continue with current diet order. No CCHO restriction due to inadequate PO intake, only meeting 75% of lower end kcal needs. 2. Recommend Boost Glucose Control BID. 3. Monitor weight. Pt noted with mild-moderate fat wasting . Expected Outcomes/Goals Expected Outcomes/Goals 1. PO intake to meet 100% of estimated nutritional needs.
--- NOTE | 2017-02-24 20:43 | Progress Notes ---
DATE: 02/23/2017 SUBJECTIVE: Staff was spoken to. The patient is interviewed. Mood is noted to be irritable. Affect is constricted. Insight and judgment at this time are noted to be impaired. Impulse control is noted to be limited. The patient is still trying to test the limits. The patient has been still responding to internal stimuli. The patient is currently on 25 mg twice a day of the Seroquel and has been able to tolerate. The patient is also on 125 mg twice a day of Depakote and it is going to be increased to 250 mg twice a day and the patient is going to be closely monitored. Once stabilized, the patient is going to be discharged to [facility] to be followed up on an outpatient basis. JOB# [id number]
--- NOTE | 2017-02-25 05:26 | Progress Notes ---
DATE: 02/24/2017 SUBJECTIVE: Staff was spoken to. The patient is interviewed. Mood is noted to be irritable. Affect is constricted. Insight and judgment are noted to be still impaired. The patient has been very drowsy and has been refusing to get up for breakfast and lunch; drowsiness from the medication has been suspected and hence the Seroquel and Depakote have been discontinued in the morning and they are going to be changed to only bedtime dosing. Coping skills at this time are noted to be still poor. Impulsivity seems to be improving at this time. The patient has been able to verbalize the concerns rather than to act out. ASSESSMENT: The patient is stabilizing and awaiting placement. PLAN: To continue the patient with the current medications and follow with the supportive therapy. JOB# [id number]
[2017-02-25] MEDS: INSULIN ASPART SLIDING SCALE 100 UNITS/ML UNIT SUBQ SCH ×4 (06:30→20:55)
[2017-02-25] MEDS: Pantoprazole 40 mg EC Tab PO SCH (06:51)
[2017-02-25] MEDS: POLYETHYLENE GLYCOL 3350 17 GM PACK PO SCH (08:11)
[2017-02-25] MEDS: Lactobacillus Rhamnosus 10 Billion CFU Capsule PO SCH (08:12)
[2017-02-25] MEDS: Nicotine 14 mg/24 hr Tdm TD SCH (10:20)
--- NOTE | 2017-02-25 11:17 | Internal Medicine Prog Note ---
Internal Medicine Subjective - Subjective Service Date: 02/25/17 Patient is:: awake, non-verbal, non-interactive Per staff patient has:: no adverse event, poor appetite, tolerating meds Internal Medicine Objective - Results Result Diagrams: 02/11/17 14:31 02/11/17 14:31 Recent Labs: Laboratory Last Values WBC 8.4 Th/cmm (4.8-10.8) 02/11/17 14:31 RBC 4.06 Mil/cmm (3.80-5.80) 02/11/17 14:31 Hgb 12.0 gm/dL (12.6-17.4) L 02/11/17 14:31 Hct 36.1 % (39.0-49.0) L 02/11/17 14:31 MCV 88.7 fl (80-99) 02/11/17 14:31 MCH 29.5 pg (27.0-31.0) 02/11/17 14:31 MCHC Differential 33.3 pg (28.0-36.0) 02/11/17 14:31 RDW 14.1 % (11.5-20.0) 02/11/17 14:31 Plt Count 183 Th/cmm (150-400) 02/11/17 14:31 MPV 8.2 fl 02/11/17 14:31 Neutrophils % 81.1 % (40.0-80.0) H 02/11/17 14:31 Lymphocytes % 12.8 % (20.0-50.0) L 02/11/17 14:31 Monocytes % 3.8 % (2.0-10.0) 02/11/17 14:31 Eosinophils % 1.3 % (0.0-5.0) 02/11/17 14:31 Basophils % 1.0 % (0.0-2.0) 02/11/17 14:31 Sodium 137 mEq/L (136-145) 02/11/17 14:31 Potassium 3.8 mEq/L (3.5-5.1) 02/11/17 14:31 Chloride 105 mEq/L (98-107) 02/11/17 14:31 Carbon Dioxide 30.5 mEq/L (21.0-31.0) 02/11/17 14:31 Anion Gap 5.3 (7.0-16.0) L 02/11/17 14:31 BUN 21 mg/dL (7-25) 02/11/17 14:31 Creatinine 0.6 mg/dL (0.7-1.3) L 02/11/17 14:31 Est GFR ( Amer) > 60.0 ml/min (>90) 02/11/17 14:31 Est GFR (Non-Af Amer) > 60.0 ml/min 02/11/17 14:31 BUN/Creatinine Ratio 35.0 02/11/17 14:31 Glucose 122 mg/dL (70-105) H 02/11/17 14:31 POC Glucose 86 MG/DL (70 - 105) 02/25/17 05:56 Calcium 9.3 mg/dL (8.6-10.3) 02/11/17 14:31 Total Bilirubin 0.2 mg/dL (0.3-1.0) L 02/11/17 14:31 AST 15 U/L (13-39) 02/11/17 14:31 ALT 15 U/L (7-52) 02/11/17 14:31 Alkaline Phosphatase 104 U/L (34-104) 02/11/17 14:31 Troponin I 0.01 ng/mL (0.01-0.05) 02/11/17 14:31 Total Protein 6.9 gm/dL (6.0-8.3) 02/11/17 14:31 Albumin 3.7 gm/dL (4.2-5.5) L 02/11/17 14:31 Globulin 3.2 gm/dL 02/11/17 14:31 Albumin/Globulin Ratio 1.2 (1.0-1.8) 02/11/17 14:31 Triglycerides 119 mg/dL (<150) 02/11/17 14:31 Cholesterol 108 mg/dL (<200) 02/11/17 14:31 LDL Cholesterol Direct 47 mg/dL (75-193) L 02/11/17 14:31 HDL Cholesterol 45 mg/dL (23-92) 02/11/17 14:31 TSH 0.70 uIU/ml (0.34-5.60) 02/11/17 14:31 Urine Source CLEAN C 02/11/17 16:10 Urine Color YELLOW 02/11/17 16:10 Urine Clarity CLOUDY (CLEAR) 02/11/17 16:10 Urine pH 8.0 (4.6 - 8.0) 02/11/17 16:10 Ur Specific [place] 1.020 (1.005-1.030) 02/11/17 16:10 Urine Protein 30 mg/dL (NEGATIVE) H 02/11/17 16:10 Urine Glucose (UA) NEGATIVE mg/dL (NEGATIVE) 02/11/17 16:10 Urine Ketones NEGATIVE mg/dL (NEGATIVE) 02/11/17 16:10 Urine Blood SMALL (NEGATIVE) H 02/11/17 16:10 Urine Nitrate POSITIVE (NEGATIVE) H 02/11/17 16:10 Urine Bilirubin NEGATIVE (NEGATIVE) 02/11/17 16:10 Urine Urobilinogen 0.2 E.U./dL (0.2 - 1.0) 02/11/17 16:10 Ur Leukocyte Esterase LARGE (NEGATIVE) H 02/11/17 16:10 Urine RBC 2-5 /hpf (0-5) H 02/11/17 16:10 Urine WBC 25-50 /hpf (0-5) H 02/11/17 16:10 Ur Epithelial Cells NONE SEEN /lpf (FEW) 02/11/17 16:10 Urine Bacteria MANY /hpf (NONE SEEN) 02/11/17 16:10 Urine Opiates Screen NEGATIVE (NEGATIVE) 02/11/17 16:10 Urine Methadone Screen NEGATIVE (NEGATIVE) 02/11/17 16:10 Ur Barbiturates Screen NEGATIVE (NEGATIVE) 02/11/17 16:10 Valproic Acid < 10.0 ug/mL (50.0-100.0) L 02/11/17 14:31 Ur Tricyclics Screen NEGATIVE (NEGATIVE) 02/11/17 16:10 Ur Phencyclidine Scrn NEGATIVE (NEGATIVE) 02/11/17 16:10 Amphetamines Screen NEGATIVE (NEGATIVE) 02/11/17 16:10 U Methamphetamines Scrn NEGATIVE (NEGATIVE) 02/11/17 16:10 U Benzodiazepines Scrn POSITIVE (NEGATIVE) H 02/11/17 16:10 U Cocaine Metab Screen NEGATIVE (NEGATIVE) 02/11/17 16:10 U Cannabinoids Screen NEGATIVE (NEGATIVE) 02/11/17 16:10 RPR NONREACTIVE (NONREACTIVE) 02/11/17 14:31 - Physical Exam Vitals and I&O: Vital Signs Temp 0 F 02/25/17 06:52 Pulse 76 02/24/17 18:19 Resp 20 02/24/17 18:19 BP 94/61 02/24/17 18:19 Pulse Ox 95 02/24/17 18:19 Intake & Output 02/24/17 02/25/17 02/25/17 18:59 06:59 18:59 Intake Total 800 Balance 800 Weight (lbs) 146 lb Intake: Oral 800 Other: # Voids 2 3 # Bowel Movements 1 0 Active Medications: Current Medications Acetaminophen (Tylenol) 650 mg PO Q6HR PRN PRN Reason: PAIN OR TEMP >101 Stop: 04/12/17 18:04 Al Hydrox/Mg Hydrox/Simethicone (Maalox) 30 ml PO Q4HR PRN PRN Reason: GI DISTRESS Stop: 04/12/17 18:07 Cyanocobalamin (Vitamin B12) 500 mcg PO DAILY ERIC Stop: 04/15/17 08:59 Last Admin: 02/25/17 08:11 Dose: 500 mcg Divalproex Sodium (Depakote Dr) 250 mg PO HS ERIC PRN Reason: Protocol Stop: 04/25/17 20:59 Last Admin: 02/24/17 20:59 Dose: 250 mg Docusate Sodium (Colace) 100 mg PO BID ERIC Stop: 04/13/17 08:59 Last Admin: 02/25/17 08:11 Dose: 100 mg Folic Acid (Folate) 1 mg PO DAILY ERIC Stop: 04/13/17 08:59 Last Admin: 02/25/17 08:13 Dose: 1 mg Insulin Aspart (Novolog Insulin Sliding Scale) 0 units SUBQ ACHS ERIC PRN Reason: Protocol Stop: 04/13/17 07:29 Last Admin: 02/25/17 06:30 Dose: Not Given Lactobacillus Rhamnosus (Culturelle) 1 each PO DAILY ERIC Stop: 04/23/17 08:59 Last Admin: 02/25/17 08:12 Dose: 1 each Lorazepam (Ativan) 0.5 mg PO Q4HR PRN; Protocol PRN Reason: Anxiety Stop: 03/13/17 18:07 Last Admin: 02/23/17 12:37 Dose: 0.5 mg Magnesium Hydroxide (Milk Of Magnesia) 30 ml PO HS PRN PRN Reason: Constipation Metformin HCl (Glucophage) 500 mg PO BID ERIC Stop: 04/13/17 08:59 Last Admin: 02/25/17 08:12 Dose: 500 mg Miscellaneous (Probiotic Screen) 1 ea MC PRN PRN PRN Reason: PROTOCOL Stop: 04/22/17 09:11 Nicotine (Nicotine Transdermal System) 14 mg TD DAILY ERIC Stop: 04/13/17 08:59 Last Admin: 02/25/17 10:20 Dose: Not Given Pantoprazole Sodium (Protonix) 40 mg PO QDAC ERIC Stop: 04/13/17 07:29 Last Admin: 02/25/17 06:51 Dose: 40 mg Polyethylene Glycol (Miralax) 17 gm PO DAILY ERIC Stop: 04/13/17 08:59 Last Admin: 02/25/17 08:11 Dose: 17 gm Quetiapine Fumarate (Seroquel) 25 mg PO HS ERIC PRN Reason: Protocol Stop: 04/25/17 20:59 Last Admin: 02/24/17 20:59 Dose: 25 mg Thiamine HCl (Vitamin B1) 100 mg PO DAILY ERIC Stop: 04/13/17 08:59 Last Admin: 02/25/17 08:12 Dose: 100 mg Zolpidem Tartrate (Ambien) 5 mg PO HS PRN PRN Reason: Insomnia Stop: 04/12/17 18:07 Last Admin: 02/18/17 20:33 Dose: 5 mg General: demented HEENT: NC/AT, PERRLA Neck: Supple, No JVD Lungs: congested Cardiovascular: RRR, Normal S1, Normal S2, with murmur Abdomen: soft, thin, globular Extremities: excoriation, contracture, deformity Neurological: no change, lethargic Internal Medicine Assmt/Plan - Assessment Assessment: COPD diabetes CAD hypertension gait instability GERD stroke HX CVA schizoaffective disorder anemia low albumin uti - Plan Plan: monitor glucose fall precautions continue current plan of care Nutritional Asmnt/Malnutr-PDOC - Dietary Evaluation Malnutrition Findings (Please click <Entered> for more info): Nutritional Asmnt/Malnutrition Start: 02/15/17 15: 13 Text: Status: Complete Freq: Document 02/15/17 15:13 GSUN (Rec: 02/15/17 15:24 GSUN [id number]) Nutritional Asmnt/Malnutrition Patient General Information Nutritional Screening Moderate Risk Screening Diagnosis Psychosis, hx bipolar disorder mixed with psychotic symptoms Pertinent Medical Hx/Surgical Hx COPD, DM, HTN, GERD, stroke, schizoaffective disorder Subjective Information 71 year old male from SNF. Per RN notes, pt is disorientated . Pt seen in armando chair in rec room. RD greeted pt several times, pt asleep with head down close to lap, unable to complete full physical assessment. Pt apepared overall thin, hx weight/fat loss noted with loose skin, arm muscles present. Avg PO intake 58% of meals since adm, meeting 75% lwoer end kcal needs. Current Diet Order/ Nutrition Support Cardiac pureed Pertinent Medications Vitamin B12, Colace, Folate, Novolog, MOM Glucophage, Miralax, Seroquel, Vitamin B1 Pertinent Labs 02/11: glucose 122H POC glucose 92-130 since adm Nutritional Hx/Data Height 5 ft 7 in Height (Calculated Centimeters) 170.2 Current Weight (lbs) 146 lb Weight (Calculated Kilograms) 66.2 Weight (Calculated Grams) 26395.5 [place] Body Weight 148 Weight Status Approriate GI Symptoms Usual diet at home [facility] SNF: cardiac , pureed Skin Integrity/Comment: Jim 16. Skin intact. Current %PO Fair (50-74%) Estimated Nutritional Goals BEE in Kcals: Using Current wt Calories/Kcals/Kg CBW 146lb/66.4kg Kcals Calculated 1660-1992kcal (25-30kcal/kg) Protein: Using Current wt Protein Calculated 66g (1g/kg) Fluid: ml 1660-1992ml (1ml/kcal) Nutritional Problem 1. Problem Problem Inadequate oral food beverage intake related to Etiology unknown, possibly cognition aeb Signs/Symptoms: avg PO intake 58% of meals since adm, meeting 75% lwoer end kcal needs. Intervention/Recommendation Comments 1. Continue with current diet order. No CCHO restriction due to inadequate PO intake, only meeting 75% of lower end kcal needs. 2. Recommend Boost Glucose Control BID. 3. Monitor weight. Pt noted with mild-moderate fat wasting . Expected Outcomes/Goals Expected Outcomes/Goals 1. PO intake to meet 100% of estimated nutritional needs.
--- NOTE | 2017-02-26 00:36 | Progress Notes ---
DATE: 02/25/2017 SUBJECTIVE: Staff was spoken to. The patient is interviewed. Mood is noted to be irritable. Affect is constricted. The patient is still isolative and withdrawn. The patient since being very drowsy, the Depakote has been changed to 250 mg at bedtime, so also the Seroquel. The patient has been closely monitored. Impulsivity is coming under control, but patient has no place to return to most of the places have been returning now. ASSESSMENT: The patient is stabilizing. PLAN: To continue the patient with the supportive therapy. I encouraged the patient to verbalize the concerns rather than to act out. sleep manager has been requested with regard to the placement issues for this patient. Continue the patient with the supportive therapy. I encouraged the patient to verbalize the concerns rather than to act out. JOB# [id number]
[2017-02-26] MEDS: Pantoprazole 40 mg EC Tab PO SCH (06:38)
[2017-02-26] MEDS: INSULIN ASPART SLIDING SCALE 100 UNITS/ML UNIT SUBQ SCH ×3 (06:38→16:59)
[2017-02-26] MEDS: Nicotine 14 mg/24 hr Tdm TD SCH (10:08)
[2017-02-26] MEDS: Lactobacillus Rhamnosus 10 Billion CFU Capsule PO SCH (10:08)
[2017-02-26] MEDS: POLYETHYLENE GLYCOL 3350 17 GM PACK PO SCH (10:08)
--- NOTE | 2017-02-26 11:26 | Internal Medicine Prog Note ---
Internal Medicine Subjective - Subjective Service Date: 02/26/17 Patient is:: awake, non-verbal, non-interactive Per staff patient has:: no adverse event, poor appetite, tolerating meds Internal Medicine Objective - Results Result Diagrams: 02/11/17 14:31 02/11/17 14:31 Recent Labs: Laboratory Last Values WBC 8.4 Th/cmm (4.8-10.8) 02/11/17 14:31 RBC 4.06 Mil/cmm (3.80-5.80) 02/11/17 14:31 Hgb 12.0 gm/dL (12.6-17.4) L 02/11/17 14:31 Hct 36.1 % (39.0-49.0) L 02/11/17 14:31 MCV 88.7 fl (80-99) 02/11/17 14:31 MCH 29.5 pg (27.0-31.0) 02/11/17 14:31 MCHC Differential 33.3 pg (28.0-36.0) 02/11/17 14:31 RDW 14.1 % (11.5-20.0) 02/11/17 14:31 Plt Count 183 Th/cmm (150-400) 02/11/17 14:31 MPV 8.2 fl 02/11/17 14:31 Neutrophils % 81.1 % (40.0-80.0) H 02/11/17 14:31 Lymphocytes % 12.8 % (20.0-50.0) L 02/11/17 14:31 Monocytes % 3.8 % (2.0-10.0) 02/11/17 14:31 Eosinophils % 1.3 % (0.0-5.0) 02/11/17 14:31 Basophils % 1.0 % (0.0-2.0) 02/11/17 14:31 Sodium 137 mEq/L (136-145) 02/11/17 14:31 Potassium 3.8 mEq/L (3.5-5.1) 02/11/17 14:31 Chloride 105 mEq/L (98-107) 02/11/17 14:31 Carbon Dioxide 30.5 mEq/L (21.0-31.0) 02/11/17 14:31 Anion Gap 5.3 (7.0-16.0) L 02/11/17 14:31 BUN 21 mg/dL (7-25) 02/11/17 14:31 Creatinine 0.6 mg/dL (0.7-1.3) L 02/11/17 14:31 Est GFR ( Amer) > 60.0 ml/min (>90) 02/11/17 14:31 Est GFR (Non-Af Amer) > 60.0 ml/min 02/11/17 14:31 BUN/Creatinine Ratio 35.0 02/11/17 14:31 Glucose 122 mg/dL (70-105) H 02/11/17 14:31 POC Glucose 97 MG/DL (70 - 105) 02/26/17 06:19 Calcium 9.3 mg/dL (8.6-10.3) 02/11/17 14:31 Total Bilirubin 0.2 mg/dL (0.3-1.0) L 02/11/17 14:31 AST 15 U/L (13-39) 02/11/17 14:31 ALT 15 U/L (7-52) 02/11/17 14:31 Alkaline Phosphatase 104 U/L (34-104) 02/11/17 14:31 Troponin I 0.01 ng/mL (0.01-0.05) 02/11/17 14:31 Total Protein 6.9 gm/dL (6.0-8.3) 02/11/17 14:31 Albumin 3.7 gm/dL (4.2-5.5) L 02/11/17 14:31 Globulin 3.2 gm/dL 02/11/17 14:31 Albumin/Globulin Ratio 1.2 (1.0-1.8) 02/11/17 14:31 Triglycerides 119 mg/dL (<150) 02/11/17 14:31 Cholesterol 108 mg/dL (<200) 02/11/17 14:31 LDL Cholesterol Direct 47 mg/dL (75-193) L 02/11/17 14:31 HDL Cholesterol 45 mg/dL (23-92) 02/11/17 14:31 TSH 0.70 uIU/ml (0.34-5.60) 02/11/17 14:31 Urine Source CLEAN C 02/11/17 16:10 Urine Color YELLOW 02/11/17 16:10 Urine Clarity CLOUDY (CLEAR) 02/11/17 16:10 Urine pH 8.0 (4.6 - 8.0) 02/11/17 16:10 Ur Specific [place] 1.020 (1.005-1.030) 02/11/17 16:10 Urine Protein 30 mg/dL (NEGATIVE) H 02/11/17 16:10 Urine Glucose (UA) NEGATIVE mg/dL (NEGATIVE) 02/11/17 16:10 Urine Ketones NEGATIVE mg/dL (NEGATIVE) 02/11/17 16:10 Urine Blood SMALL (NEGATIVE) H 02/11/17 16:10 Urine Nitrate POSITIVE (NEGATIVE) H 02/11/17 16:10 Urine Bilirubin NEGATIVE (NEGATIVE) 02/11/17 16:10 Urine Urobilinogen 0.2 E.U./dL (0.2 - 1.0) 02/11/17 16:10 Ur Leukocyte Esterase LARGE (NEGATIVE) H 02/11/17 16:10 Urine RBC 2-5 /hpf (0-5) H 02/11/17 16:10 Urine WBC 25-50 /hpf (0-5) H 02/11/17 16:10 Ur Epithelial Cells NONE SEEN /lpf (FEW) 02/11/17 16:10 Urine Bacteria MANY /hpf (NONE SEEN) 02/11/17 16:10 Urine Opiates Screen NEGATIVE (NEGATIVE) 02/11/17 16:10 Urine Methadone Screen NEGATIVE (NEGATIVE) 02/11/17 16:10 Ur Barbiturates Screen NEGATIVE (NEGATIVE) 02/11/17 16:10 Valproic Acid < 10.0 ug/mL (50.0-100.0) L 02/11/17 14:31 Ur Tricyclics Screen NEGATIVE (NEGATIVE) 02/11/17 16:10 Ur Phencyclidine Scrn NEGATIVE (NEGATIVE) 02/11/17 16:10 Amphetamines Screen NEGATIVE (NEGATIVE) 02/11/17 16:10 U Methamphetamines Scrn NEGATIVE (NEGATIVE) 02/11/17 16:10 U Benzodiazepines Scrn POSITIVE (NEGATIVE) H 02/11/17 16:10 U Cocaine Metab Screen NEGATIVE (NEGATIVE) 02/11/17 16:10 U Cannabinoids Screen NEGATIVE (NEGATIVE) 02/11/17 16:10 RPR NONREACTIVE (NONREACTIVE) 02/11/17 14:31 - Physical Exam Vitals and I&O: Vital Signs Temp 0 F 02/25/17 20:00 Pulse 74 02/25/17 20:00 Resp 20 02/25/17 16:43 BP 123/69 02/25/17 16:43 Pulse Ox 98 02/25/17 16:43 Intake & Output 02/25/17 02/26/17 02/26/17 18:59 06:59 18:59 Intake Total 460 360 Balance 460 360 Weight (lbs) 146 lb Intake: Oral 460 360 Other: # Voids 3 2 # Bowel Movements 1 0 Stool Characteristics Soft Formed Active Medications: Current Medications Acetaminophen (Tylenol) 650 mg PO Q6HR PRN PRN Reason: PAIN OR TEMP >101 Stop: 04/12/17 18:04 Al Hydrox/Mg Hydrox/Simethicone (Maalox) 30 ml PO Q4HR PRN PRN Reason: GI DISTRESS Stop: 04/12/17 18:07 Cyanocobalamin (Vitamin B12) 500 mcg PO DAILY ERIC Stop: 04/15/17 08:59 Last Admin: 02/26/17 10:08 Dose: Not Given Divalproex Sodium (Depakote Dr) 250 mg PO HS ERIC PRN Reason: Protocol Stop: 04/25/17 20:59 Last Admin: 02/25/17 20:46 Dose: 250 mg Docusate Sodium (Colace) 100 mg PO BID ERIC Stop: 04/13/17 08:59 Last Admin: 02/26/17 10:08 Dose: Not Given Folic Acid (Folate) 1 mg PO DAILY ERIC Stop: 04/13/17 08:59 Last Admin: 02/26/17 10:08 Dose: Not Given Insulin Aspart (Novolog Insulin Sliding Scale) 0 units SUBQ ACHS ERIC PRN Reason: Protocol Stop: 04/13/17 07:29 Last Admin: 02/26/17 06:38 Dose: Not Given Lactobacillus Rhamnosus (Culturelle) 1 each PO DAILY ERIC Stop: 04/23/17 08:59 Last Admin: 02/26/17 10:08 Dose: Not Given Lorazepam (Ativan) 0.5 mg PO Q4HR PRN; Protocol PRN Reason: Anxiety Stop: 03/13/17 18:07 Last Admin: 02/25/17 20:50 Dose: 0.5 mg Magnesium Hydroxide (Milk Of Magnesia) 30 ml PO HS PRN PRN Reason: Constipation Metformin HCl (Glucophage) 500 mg PO BID ERIC Stop: 04/13/17 08:59 Last Admin: 02/26/17 10:08 Dose: Not Given Miscellaneous (Probiotic Screen) 1 ea MC PRN PRN PRN Reason: PROTOCOL Stop: 04/22/17 09:11 Nicotine (Nicotine Transdermal System) 14 mg TD DAILY ERIC Stop: 04/13/17 08:59 Last Admin: 02/26/17 10:08 Dose: Not Given Pantoprazole Sodium (Protonix) 40 mg PO QDAC ERIC Stop: 04/13/17 07:29 Last Admin: 02/26/17 06:38 Dose: 40 mg Polyethylene Glycol (Miralax) 17 gm PO DAILY ERIC Stop: 04/13/17 08:59 Last Admin: 02/26/17 10:08 Dose: Not Given Quetiapine Fumarate (Seroquel) 25 mg PO HS ERIC PRN Reason: Protocol Stop: 04/25/17 20:59 Last Admin: 02/25/17 20:45 Dose: 25 mg Thiamine HCl (Vitamin B1) 100 mg PO DAILY ERIC Stop: 04/13/17 08:59 Last Admin: 02/26/17 10:09 Dose: Not Given Zolpidem Tartrate (Ambien) 5 mg PO HS PRN PRN Reason: Insomnia Stop: 04/12/17 18:07 Last Admin: 02/25/17 20:50 Dose: 5 mg General: demented HEENT: NC/AT, PERRLA Neck: Supple, No JVD Lungs: congested Cardiovascular: RRR, Normal S1, Normal S2, with murmur Abdomen: soft, thin, globular Extremities: excoriation, contracture, deformity Neurological: no change, lethargic Internal Medicine Assmt/Plan - Assessment Assessment: COPD diabetes CAD hypertension gait instability GERD stroke HX CVA schizoaffective disorder anemia low albumin uti - Plan Plan: monitor glucose fall precautions continue current plan of care Nutritional Asmnt/Malnutr-PDOC - Dietary Evaluation Malnutrition Findings (Please click <Entered> for more info): Nutritional Asmnt/Malnutrition Start: 02/15/17 15: 13 Text: Status: Complete Freq: Document 02/15/17 15:13 GSUN (Rec: 02/15/17 15:24 GSUN [id number]) Nutritional Asmnt/Malnutrition Patient General Information Nutritional Screening Moderate Risk Screening Diagnosis Psychosis, hx bipolar disorder mixed with psychotic symptoms Pertinent Medical Hx/Surgical Hx COPD, DM, HTN, GERD, stroke, schizoaffective disorder Subjective Information 71 year old male from SNF. Per RN notes, pt is disorientated . Pt seen in armando chair in rec room. RD greeted pt several times, pt asleep with head down close to lap, unable to complete full physical assessment. Pt apepared overall thin, hx weight/fat loss noted with loose skin, arm muscles present. Avg PO intake 58% of meals since adm, meeting 75% lwoer end kcal needs. Current Diet Order/ Nutrition Support Cardiac pureed Pertinent Medications Vitamin B12, Colace, Folate, Novolog, MOM Glucophage, Miralax, Seroquel, Vitamin B1 Pertinent Labs 02/11: glucose 122H POC glucose 92-130 since adm Nutritional Hx/Data Height 5 ft 7 in Height (Calculated Centimeters) 170.2 Current Weight (lbs) 146 lb Weight (Calculated Kilograms) 66.2 Weight (Calculated Grams) 27156.5 [place] Body Weight 148 Weight Status Approriate GI Symptoms Usual diet at home [facility] SNF: cardiac , pureed Skin Integrity/Comment: Jim 16. Skin intact. Current %PO Fair (50-74%) Estimated Nutritional Goals BEE in Kcals: Using Current wt Calories/Kcals/Kg CBW 146lb/66.4kg Kcals Calculated 1660-1992kcal (25-30kcal/kg) Protein: Using Current wt Protein Calculated 66g (1g/kg) Fluid: ml 1660-1992ml (1ml/kcal) Nutritional Problem 1. Problem Problem Inadequate oral food beverage intake related to Etiology unknown, possibly cognition aeb Signs/Symptoms: avg PO intake 58% of meals since adm, meeting 75% lwoer end kcal needs. Intervention/Recommendation Comments 1. Continue with current diet order. No CCHO restriction due to inadequate PO intake, only meeting 75% of lower end kcal needs. 2. Recommend Boost Glucose Control BID. 3. Monitor weight. Pt noted with mild-moderate fat wasting . Expected Outcomes/Goals Expected Outcomes/Goals 1. PO intake to meet 100% of estimated nutritional needs.
--- NOTE | 2017-02-26 22:19 | Discharge Summary ---
DATE OF DISCHARGE: 02/26/2017 IDENTIFYING DATA: The patient is a 71-year-old woman admitted from [facility]. JUSTIFICATION OF HOSPITALIZATION: The patient is admitted on a voluntary basis in view of his psychosis. CHIEF COMPLAINT: "I don't know." HISTORY OF PRESENT ILLNESS: Please refer to the 02/12/2017 dictation done by me. DIAGNOSES AT THE TIME OF ADMISSION: AXIS I: A. Psychotic disorder, not otherwise specified. B. Bipolar disorder mixed with psychotic symptoms. AXIS II: None. AXIS III: As per Dr. Robertson. HOSPITAL COURSE AND RESPONSE TO TREATMENT: The patient had the physical examination done and is reviewed by Dr. Luis Robertson and is noted to be significant for diabetes mellitus, hypertension, COPD, history of GERD, CVA, anemia. The blood work was done at the time of the hospitalization has been reviewed by Dr. Robertson and his glucose has been closely monitored. The glucose was running around 93-99. The patient has been encouraged to participate in the groups and verbalize the concerns and the patient started to do fairly well and patient was finally discharged on 02/26/2017. While in the hospital, the patient has been placed on the Seroquel, which was given 25 mg twice a day. Later it was decreased to 25 mg at bedtime and Depakote was given at 250 mg and patient started to do fairly well and the patient was discharged with the recommendation that the patient to be followed up on an outpatient basis. MENTAL STATUS EXAMINATION: At the time of discharge, the patient's mood is noted to be less irritable. Affect is appropriate. Not suicidal or homicidal. Insight and judgment were noted to be fair. Impulse control is noted to be fair. No side effects to the medications are noted. DIAGNOSES AT THE TIME OF DISCHARGE: AXIS I: 1. Bipolar disorder mixed with psychotic symptoms. AXIS II: None. AXIS III: Diabetes mellitus, hypertension, CVA, GERD, anemia and COPD. AFTERCARE PLAN: The patient is discharged to be followed up on an outpatient basis. PROGNOSIS: At the time of discharge noted to be fair with the treatment. JOB# [id number]
== END 2017-02-26 19:25 | DRG 885 ==
LOC: ER 14:13 → GERO 14:30
PROVIDERS: ADMIT Psychiatry & Neurology Psychiatry; ATTEND Psychiatry & Neurology Psychiatry
DX: F31.64 Bipolar disorder, current episode mixed, severe, with psychotic features (principal); F03.90 Unspecified dementia, unspecified severity, without behavioral disturbance, psychotic disturbance, mood disturbance, and anxiety; J44.9 Chronic obstructive pulmonary disease, unspecified; E11.9 Type 2 diabetes mellitus without complications; I10 Essential (primary) hypertension; D64.9 Anemia, unspecified; N39.0 Urinary tract infection, site not specified; I25.10 Atherosclerotic heart disease of native coronary artery without angina pectoris; R26.9 Unspecified abnormalities of gait and mobility; K21.9 Gastro-esophageal reflux disease without esophagitis; G40.909 Epilepsy, unspecified, not intractable, without status epilepticus; Z86.73 Personal history of transient ischemic attack (TIA), and cerebral infarction without residual deficits
CPT/HCPCS: 36415-UA; 80053-TC; 80061-TC; 80164-TC; 80307; 81001-TC; 82948-90; 84443-TC; 84484-TC; 85025-TC; 86592-TC; 87086-90; 90899; 93005; J1815; Z7610